=== PATIENT | female | born 1955 | race Caucasian/White ===

== ENCOUNTER 2023-12-08 22:43 | Inpatient (IN) | payer OTHER, SELFPAY ==
[2023-12-08 17:54] VITALS: BMI 38.2
[2023-12-08 18:29] VITALS: BP 118/71
--- NOTE | 2023-12-08 18:30 | ED.GENMED ---
ED Provider Triage
<Cheryl Hancock PA-C - Last Filed: 12/08/23 18:35>
-
Patient seen by provider in Triage?: Seen in Triage
Attestation: A medical screening examination has been initiated by a qualified medical provider. Based on the assessment performed at this time, it has been determined that an emergent medical condition may exist and the patient has been informed
that further medical evaluation and possible additional diagnostic testing may be needed.
HPI: 68yoF here with numbness in both hands, legs, and face for 1 week, worse since last night. Also feels off balance and feels like she is having speech difficulty. Feels like her previous CVA.
GENERAL: Alert , in no apparent distress
EYE: No visual abnormalities.
NECK: Trachea midline
ENT: No visible abnormalities.
LUNGS: No acute respiratory distress
NEUROLOGICAL: Alert and oriented
SKIN: Skin intact. No visible changes.
MUSCULOSKELETAL: Moving extremities normally
PSYCH: Normal and appropriate interaction.
This is a medical evaluation conducted in person to initiate diagnostic evaluation and provide initial therapeutics. Please see further documentation by the treating clinician.
Cardiac labs, EKG, and CT head ordered.
History of Present Illness
<Cheryl Hancock PA-C - Last Filed: 12/08/23 18:35>
General
Chief Complaint: Numbness
Time Seen by Provider: 12/08/23 19:35
<Tammy Bernabe MD - Last Filed: 12/09/23 02:24>
History of Present Illness
History of Present Illness:
Patient is a 68-year-old woman with history of A-fib not on anticoagulation, hypertension, hyperlipidemia, prior CVA in September treated at [facility] with no residual deficits presenting to the emergency department numbness tingling. Patient states
the past few weeks she has had bilateral lower extremity and upper extremity numbness. She states that it comes and goes and has not thought much of it. However yesterday evening she developed left-sided facial numbness. Occasionally has
difficulty with her speech. She states that while she was out in the waiting room the symptoms did resolve. She denies any weakness. No chest pain. She does state that she has shortness of breath with some dyspnea on exertion that has been
ongoing for many weeks. No history of coronary artery disease. No headache and vision changes nausea vomiting abdominal pain.
Phy Exam
<Tammy Bernabe MD - Last Filed: 12/09/23 02:24>
Physical Exam
Physical Exam:
GENERAL: in no acute distress
HEENT: normocephalic, extraocular movements intact, moist oral mucosa
NECK: normal inspection
RESPIRATORY: no respiratory distress, clear to auscultation bilaterally
CARDIOVASCULAR: regular rate and rhythm
ABDOMEN/: soft, non-distended, non-tender to palpation, no rebound or guarding
EXTREMITIES: non-tender, no edema/swelling
NEUROLOGIC: alert and oriented x 3, cranial nerves II-XII intact, right upper extremity strength 5/5, left upper extremity strength 5/5, right lower extremity strength 5/5, left lower extremity strength 5/5, normal sensation to light touch (except
left foot has decreased sensation), normal [id number] and [id number], gait not tested formally
SKIN: warm
NIH Stroke Score
Level of Consciousness: 0 - Alert
LOC questions: 0-Answers both correctly
LOC Commands: 0-Performs both correctly
Best Gaze: 0-Normal
Visual Salgado: 0=Normal, no visual loss
Facial palsy: 0=Normal, symmetrical
Motor - Right Arm: 0=No drift 10 seconds
Motor - Left Arm: 0=No drift 10 seconds
Motor - Right Le-No drift 5 seconds
Motor - Left Le-No drift 5 seconds
Limb Ataxia: 0-Absent
Sensation: 1-Mild loss
Best Language: 0-No aphasia
Dysarthria: 0-Normal
Extinction and Inattention: 0-No abnormality
Total Score:: 1
Course
<Cheryl Hancock PA-C - Last Filed: 12/08/23 18:35>
Orders/Labs/Results
Orders:
Orders
12/08/23 Dinner
1800 calorie (15 carb) Diabetic
At Your Request: Full Participation
Does patient need a safe tray?: No
Diabetic Diet: Cholesterol Lowering
12/08/23 18:34
Electrocardiogram (*1) Urgent
Reason for Study: Vertigo / Dizzy
CT Head W/o Iv Contrast Urgent
Comment:
Reason For Exam: Dizziness, bilateral hand/leg numbness, hx of CVA
EKG- Treatment ONCE
12/08/23 18:39
Complete Blood Count/With Diff Urgent
Comprehensive Metabolic Panel Urgent
Troponin I Urgent
12/08/23 19:52
0.9% Sodium Chloride 1000 ml [Nss] 1,000 ml IV BOLUS
12/08/23 21:09
Urinalysis Reflex To Culture Urgent
Date Specimen was Collected: 12/08/23
Time Specimen was Collected: 21:08
Urine Microscopic Reflex Cult Urgent
Urine Culture Urgent
NURY Source: U
Specimen Description:
Date Specimen was Collected: 12/08/23
Time Specimen was Collected: 21:08
12/08/23 21:36
Troponin I Routine
12/08/23 21:39
Aspirin 325 mg PO NOW STA
Clopidogrel Bisulfate [Plavix] 300 mg PO NOW STA
12/08/23 22:25
Dextrose 50%-Water [Dextrose 50% Syringe] 12.5 grams IV [id number] PRN
Glucagon [GlucaGen] 1 mg IM PRN PRN
12/08/23 22:26
NEUROLOGY CONSULT Routine
Consulting Provider: Donta Velazquez
Was physician already notified: Yes
Reason for consult: acute subacute cva small petechial hemorrhage
Bedside Glucose Monitoring As Directed
Frequency: AC&HS
Additional Instructions:: Change to q6h if pt on TPN, tube feeding or not eating
12/08/23 22:27
Acetaminophen [Tylenol] 1,000 mg PO NOW STA
12/08/23 22:29
Admit/Transfer Patient As Directed
Co-Sign Provider:
Level of Care: Inpatient admission
Assign to:: Telemetry
Physician / Group: david chavez
Diagnosis: acute /subacute cva,uncontrolled dm2
Reason for Telemetry: CVA/TIA
Date to Stop Telemetry: 12/11/23
Time to Stop Telemetry: 11:00
Reason for Hospitalization: acute /subacute cva,uncontrolled dm2
Expected length of stay greater than two midnights?: Yes
ELOS- Estimated Length of Stay in days: 3
I certify the patient meets the requirements for IP care: Yes
Code Status As Directed
Resuscitation Status: Full Code
12/08/23 22:34
PRN Pain Medication Management As Directed
May give lesser potent ordered pain med per pt: Yes
preference::
Protocol:: Medication orders for pain may be administered in a
manner that supports deferring to patient preference
when the pt is:
- Requesting an ordered lesser potent pain medication.
Least to most potent pain medications are defined
as: acetaminophen < NSAID < tramadol < opioids
(morphine, oxycodone, hydromorphone).
- Requesting a lesser dose of the same medication IF
ORDERED.
- Requesting a less intrusive route of administration
if both routes are prescribed by the provider (PO <
IV).
12/08/23 22:35
Diphenhydramine [Benadryl] 50 mg PO NOW STA
12/08/23 22:45
Insulin Glargine Lantus [Lantus] 10 units Subcutaneous Insulin Syringe [Syringe-Insulin] 0 unit SC HS
12/08/23 23:09
Acetaminophen [Tylenol] 650 mg PO Q4HPRN PRN
Bisacodyl [Dulcolax] 10 mg RECTAL [id number] PRN
Docusate W/Senna [Senokot-S] 1 tablet PO BIDPRN PRN
Polyethylene Glycol Powder [Miralax] 17 grams PO DAILYPRN PRN
Tetrahydrozoline 0.05% [Visine Eye Drops] 1 drop BOTH EYES QIDPRN PRN
12/08/23 23:09
Activity As Directed
Activity Level: As Tolerated
Intake/ Output As Directed
Frequency: Per unit guidelines
Neurological Checks As Directed
Frequency: q4h
Old Records Request [Obtain Records] As Directed
Dates of Information to be Released: 2022
Type of Information Requested: Consults
Discharge Summary
H&P
Radiology Results
Lab Results
Obtain Records from: [facility]
Pneumatic Compression Sleeves As Directed
Type: Knee high
Vital Signs As Directed
Frequency: Per unit guidelines
Weight As Directed
Frequency: Daily
OT Consult [Ot Eval And Treat] Routine
PT Consult [Pt Eval And Treat] Routine
Activity Level: As Tolerated
DX Deep Vein Thrombosis Video Routine
12/09/23 03:00
Troponin I Urgent
12/09/23 06:00
Complete Blood Count/With Diff IN AM
Comprehensive Metabolic Panel IN AM
Folate IN AM
Glycohemoglobin (HgbA1c) IN AM
Vitamin B12 IN AM
MRI Brain [MR Brain Without Contrast] IN AM
Comment:
Reason For Exam: Subacute/acute CVA possible tiki L hemorrhage
OK for patient to be off Cardiac Monitoring for MRI: Yes
Recent pill cam endoscopy?: No
Pacemaker/Defibrillator?: No
12/09/23 22:00
Losartan [Cozaar] 50 mg PO HS
Rosuvastatin Calcium [Crestor] 40 mg PO HS
12/10/23 06:00
Complete Blood Count/With Diff IN AM
Comprehensive Metabolic Panel IN AM
12/11/23 11:00
DC Protocol for Telemetry ONCE
Abnormal Lab Results
12/08/23 12/08/23 12/08/23
18:39 20:32 21:09
MCV 74.2 L fL
(81.0-99.0)
MCH 24.6 L pg
(27.0-31.0)
RDW 19.6 H %
(11.5-14.5)
Abs Immat Gran (auto) 0.1 H 10^3/uL
(0-0.05)
Absolute Monos (auto) 0.7 H 10^3/uL
(0.1-0.6)
Immature Gran % 0.8 H %
(0-0.5)
Monocytes % 11.2 H %
(1.7-9.3)
Sodium 134 L mmol/L
(135-145)
Chloride 92 L mmol/L
(98-107)
BUN 18 H mg/dl
(7-17)
Glucose 584 H* mg/dl
(70-99)
Troponin I 0.049 H* ng/ml
Ur Occult Blood Reflex Trace A
(Negative)
Leukocyte Esterase Rfl 1+ A
(Negative)
Urine Bacteria (Reflex) Few A
(Negative)
Urine Glucose 3+ A
(Negative)
POC Glucose 513 H* mg/dl
(70-99)
12/08/23 12/08/23
21:36 21:40
MCV
MCH
RDW
Abs Immat Gran (auto)
Absolute Monos (auto)
Immature Gran %
Monocytes %
Sodium
Chloride
BUN
Glucose
Troponin I 0.048 H* ng/ml
Ur Occult Blood Reflex
Leukocyte Esterase Rfl
Urine Bacteria (Reflex)
Urine Glucose
POC Glucose 426 H mg/dl
(70-99)
12/08/23 18:39
12/08/23 18:39
Vital Signs
Initial and Last Documented VS:
Initial Vital Signs
Temp Pulse Resp BP Pulse Ox
98.2 F 84 18 118/71 95
12/08/23 18:29 12/08/23 18:29 12/08/23 18:29 12/08/23 18:29 12/08/23 18:29
Last Documented Vital Signs
Temp Pulse Resp BP Pulse Ox
98.2 F 83 18 122/77 95
12/08/23 18:29 12/08/23 23:00 12/08/23 21:45 12/08/23 23:00 12/08/23 23:00
<Tammy Bernabe MD - Last Filed: 12/09/23 02:24>
Orders/Labs/Results
Orders:
Orders
12/08/23 Dinner
1800 calorie (15 carb) Diabetic
At Your Request: Full Participation
Does patient need a safe tray?: No
Diabetic Diet: Cholesterol Lowering
12/08/23 18:34
Electrocardiogram (*1) Urgent
Reason for Study: Vertigo / Dizzy
CT Head W/o Iv Contrast Urgent
Comment:
Reason For Exam: Dizziness, bilateral hand/leg numbness, hx of CVA
EKG- Treatment ONCE
12/08/23 18:39
Complete Blood Count/With Diff Urgent
Comprehensive Metabolic Panel Urgent
Troponin I Urgent
12/08/23 19:52
0.9% Sodium Chloride 1000 ml [Nss] 1,000 ml IV BOLUS
12/08/23 21:09
Urinalysis Reflex To Culture Urgent
Date Specimen was Collected: 12/08/23
Time Specimen was Collected: 21:08
Urine Microscopic Reflex Cult Urgent
Urine Culture Urgent
NURY Source: U
Specimen Description:
Date Specimen was Collected: 12/08/23
Time Specimen was Collected: 21:08
12/08/23 21:36
Troponin I Routine
12/08/23 21:39
Aspirin 325 mg PO NOW STA
Clopidogrel Bisulfate [Plavix] 300 mg PO NOW STA
12/08/23 22:25
Dextrose 50%-Water [Dextrose 50% Syringe] 12.5 grams IV [id number] PRN
Glucagon [GlucaGen] 1 mg IM PRN PRN
12/08/23 22:26
NEUROLOGY CONSULT Routine
Consulting Provider: Donta Velazquez
Was physician already notified: Yes
Reason for consult: acute subacute cva small petechial hemorrhage
Bedside Glucose Monitoring As Directed
Frequency: AC&HS
Additional Instructions:: Change to q6h if pt on TPN, tube feeding or not eating
12/08/23 22:27
Acetaminophen [Tylenol] 1,000 mg PO NOW STA
12/08/23 22:29
Admit/Transfer Patient As Directed
Co-Sign Provider:
Level of Care: Inpatient admission
Assign to:: Telemetry
Physician / Group: david chavez
Diagnosis: acute /subacute cva,uncontrolled dm2
Reason for Telemetry: CVA/TIA
Date to Stop Telemetry: 12/11/23
Time to Stop Telemetry: 11:00
Reason for Hospitalization: acute /subacute cva,uncontrolled dm2
Expected length of stay greater than two midnights?: Yes
ELOS- Estimated Length of Stay in days: 3
I certify the patient meets the requirements for IP care: Yes
Code Status As Directed
Resuscitation Status: Full Code
12/08/23 22:34
PRN Pain Medication Management As Directed
May give lesser potent ordered pain med per pt: Yes
preference::
Protocol:: Medication orders for pain may be administered in a
manner that supports deferring to patient preference
when the pt is:
- Requesting an ordered lesser potent pain medication.
Least to most potent pain medications are defined
as: acetaminophen < NSAID < tramadol < opioids
(morphine, oxycodone, hydromorphone).
- Requesting a lesser dose of the same medication IF
ORDERED.
- Requesting a less intrusive route of administration
if both routes are prescribed by the provider (PO <
IV).
12/08/23 22:35
Diphenhydramine [Benadryl] 50 mg PO NOW STA
12/08/23 22:45
Insulin Glargine Lantus [Lantus] 10 units Subcutaneous Insulin Syringe [Syringe-Insulin] 0 unit SC HS
12/08/23 23:09
Acetaminophen [Tylenol] 650 mg PO Q4HPRN PRN
Bisacodyl [Dulcolax] 10 mg RECTAL [id number] PRN
Docusate W/Senna [Senokot-S] 1 tablet PO BIDPRN PRN
Polyethylene Glycol Powder [Miralax] 17 grams PO DAILYPRN PRN
Tetrahydrozoline 0.05% [Visine Eye Drops] 1 drop BOTH EYES QIDPRN PRN
12/08/23 23:09
Activity As Directed
Activity Level: As Tolerated
Intake/ Output As Directed
Frequency: Per unit guidelines
Neurological Checks As Directed
Frequency: q4h
Old Records Request [Obtain Records] As Directed
Dates of Information to be Released: 2022
Type of Information Requested: Consults
Discharge Summary
H&P
Radiology Results
Lab Results
Obtain Records from: [facility]
Pneumatic Compression Sleeves As Directed
Type: Knee high
Vital Signs As Directed
Frequency: Per unit guidelines
Weight As Directed
Frequency: Daily
OT Consult [Ot Eval And Treat] Routine
PT Consult [Pt Eval And Treat] Routine
Activity Level: As Tolerated
DX Deep Vein Thrombosis Video Routine
12/09/23 03:00
Troponin I Urgent
12/09/23 06:00
Complete Blood Count/With Diff IN AM
Comprehensive Metabolic Panel IN AM
Folate IN AM
Glycohemoglobin (HgbA1c) IN AM
Vitamin B12 IN AM
MRI Brain [MR Brain Without Contrast] IN AM
Comment:
Reason For Exam: Subacute/acute CVA possible tiki L hemorrhage
OK for patient to be off Cardiac Monitoring for MRI: Yes
Recent pill cam endoscopy?: No
Pacemaker/Defibrillator?: No
12/09/23 22:00
Losartan [Cozaar] 50 mg PO HS
Rosuvastatin Calcium [Crestor] 40 mg PO HS
12/10/23 06:00
Complete Blood Count/With Diff IN AM
Comprehensive Metabolic Panel IN AM
12/11/23 11:00
DC Protocol for Telemetry ONCE
Abnormal Lab Results
12/08/23 12/08/23 12/08/23
18:39 20:32 21:09
MCV 74.2 L fL
(81.0-99.0)
MCH 24.6 L pg
(27.0-31.0)
RDW 19.6 H %
(11.5-14.5)
Abs Immat Gran (auto) 0.1 H 10^3/uL
(0-0.05)
Absolute Monos (auto) 0.7 H 10^3/uL
(0.1-0.6)
Immature Gran % 0.8 H %
(0-0.5)
Monocytes % 11.2 H %
(1.7-9.3)
Sodium 134 L mmol/L
(135-145)
Chloride 92 L mmol/L
(98-107)
BUN 18 H mg/dl
(7-17)
Glucose 584 H* mg/dl
(70-99)
Troponin I 0.049 H* ng/ml
Ur Occult Blood Reflex Trace A
(Negative)
Leukocyte Esterase Rfl 1+ A
(Negative)
Urine Bacteria (Reflex) Few A
(Negative)
Urine Glucose 3+ A
(Negative)
POC Glucose 513 H* mg/dl
(70-99)
12/08/23 12/08/23
21:36 21:40
MCV
MCH
RDW
Abs Immat Gran (auto)
Absolute Monos (auto)
Immature Gran %
Monocytes %
Sodium
Chloride
BUN
Glucose
Troponin I 0.048 H* ng/ml
Ur Occult Blood Reflex
Leukocyte Esterase Rfl
Urine Bacteria (Reflex)
Urine Glucose
POC Glucose 426 H mg/dl
(70-99)
12/08/23 18:39
12/08/23 18:39
Vital Signs
Initial and Last Documented VS:
Initial Vital Signs
Temp Pulse Resp BP Pulse Ox
98.2 F 84 18 118/71 95
12/08/23 18:29 12/08/23 18:29 12/08/23 18:29 12/08/23 18:29 12/08/23 18:29
Last Documented Vital Signs
Temp Pulse Resp BP Pulse Ox
98.2 F 83 18 122/77 95
12/08/23 18:29 12/08/23 23:00 12/08/23 21:45 12/08/23 23:00 12/08/23 23:00
<Tammy Bernabe MD - Last Filed: 12/09/23 02:24>
MDM/Problems Addressed
Differential Diagnosis Includes:
Patient is a 68-year-old woman with history of prior CVA, hypertension, hyperlipidemia, A-fib not on anticoagulation presenting to the emergency department with left-sided facial numbness that is now resolved as well as some shortness of breath that
has been ongoing on for many weeks. Vitals are unremarkable and exam only showed decrease sensation to the left foot. Differential consists of CVA/TIA versus electrolyte derangement versus atypical ACS. Blood work obtained prior to evaluation
does show hyperglycemia. It does not seem consistent with DKA given the elevated bicarb. Will obtain urine. Will give IV fluids and reassess blood sugar. Her troponin is also elevated. Per my interpretation she does have some inversions and
some mild depression laterally. Given that this time she is asymptomatic we will trend troponins to see if is needed. I did discuss with cardiology who is in agreement. CT scan is pending at this time.
<Tammy Bernabe MD - Last Filed: 12/09/23 02:24>
*Critical Care Note
Total Time (30-74mins, 75-104mins- exclusive of procedures): Not Applicable
<Tammy Bernabe MD - Last Filed: 12/09/23 02:24>
Update Note
Update Note:
On reevaluation patient remains symptom-free. CT scan does show subacute infarct with possible petechial hemorrhage. I did discuss with neurology who recommends asa/plavix. Delta troponin pending at 930. Will recheck blood sugar at that time.
Discussed with hospitalist who accepted patient to their service.
ED Attending Note
<Cheryl Hancock PA-C - Last Filed: 12/08/23 18:35>
-
Portions of this chart may have been created with voice recognition software.� Occasional wrong word or��sound alike� substitutions may have occurred due to the inherent limitations of voice recognition software.
Discharge Plan
Departure
Patient Disposition: Admit
Date of Disposition: 12/08/23
Time of Disposition: 21:17
Presentation/result/management discussed w/ accepting MD/DO: Hospitalist
Discharge Problem:
CVA (cerebral vascular accident)
Interventions
Interventions:
*Risk Screen - Suicide Last Done: 12/08/23 20:37
*General Assessment Last Done: 12/08/23 20:37
*Neglect/Abuse Screening Last Done: 12/08/23 20:37
ED- Neurological Assessment Last Done: 12/08/23 20:32
[2023-12-08 18:56] LABS: % Basophils 0.2 % (0-2); % Eosinophils 0.3 % (0-6); % Immature Granulocytes 0.8 % (0-0.5); % Lymphocytes 36.4 % (20.5-51.1); % Monocytes 11.2 % (1.7-9.3); % Neutrophils 51.1 % (42.2-75.2); Absolute Immature Granulocytes 0.1 10^3/uL (0-0.05); Absolute Lymphocytes 2.2 10^3/uL (1.2-3.4); Absolute Monocytes 0.7 10^3/uL (0.1-0.6); Absolute Neutrophils 3.1 10^3/uL (1.4-6.5); Hematocrit 38.6 % (37.0-47.0); Hemoglobin 12.8 g/dL (12.0-16.0); Mean Corp Hgb Conc. 33.2 g/dL (33.0-37.0); Mean Corpuscular Hgb 24.6 pg (27.0-31.0); Mean Corpuscular Volume 74.2 fL (81.0-99.0); Mean Platelet Volume 10.3 fL (7.4-10.4); Nucleated Red Blood Cells % 0 %; Platelet Count 252 10^3/uL (130-400); Red Cell Dist. Width 19.6 % (11.5-14.5); White Blood Cell Count 6.2 10^3/uL (4.8-10.8)
[2023-12-08 19:18] LABS: ALT (SGPT) 28 U/L (0-35); AST (SGOT) 31 U/L (14-36); Albumin 4.3 g/dl (3.5-5.0); Alkaline Phosphatase 95 U/L (38-126); Blood Urea Nitrogen 18 mg/dl (7-17); Calcium 9.4 mg/dl (8.4-10.2); Carbon Dioxide 27 mmol/L (22-30); Chloride 92 mmol/L (98-107); Glucose 584 mg/dl (70-99); Potassium 4.1 mmol/L (3.5-5.1); Sodium 134 mmol/L (135-145); Total Bilirubin 0.4 mg/dl (0.2-1.3); Total Protein 6.9 g/dl (6.3-8.2); eGFR > 60.00
[2023-12-08 19:28] LABS: Troponin I 0.049 ng/ml
[2023-12-08 19:53] VITALS: BP 99/74
[2023-12-08 20:10] VITALS: BP 109/73
[2023-12-08] MEDS: NSS 1000 IV (20:29)
[2023-12-08 20:34] LABS: Glucose - Point of Care 513 mg/dl (70-99)
[2023-12-08 21:07] VITALS: BP 114/73
[2023-12-08 21:17] LABS: Urine Albumin Trace (Neg - Trace); Urine Bilirubin Negative (Negative); Urine Character Clear (Clear); Urine Color Yellow; Urine Glucose 3+ (Negative); Urine Ketone Negative (Negative); Urine Leukocyte 1+ (Negative); Urine Nitrite Negative (Negative); Urine Occult Blood Trace (Negative); Urine Urobilinogen Negative (Neg - 1+)
[2023-12-08 21:29] LABS: Urine Bacteria Few (Negative); Urine Red Blood Cell 0-2 /HPF (0-2); Urine Squamous Cell 0-2 /LPF (Few)
[2023-12-08 21:42] LABS: Glucose - Point of Care 426 mg/dl (70-99)
[2023-12-08] MEDS: PLAVIX PO ×2 (21:45→21:49)
[2023-12-08] MEDS: ASPIRIN PO ×2 (21:46→21:49)
[2023-12-08 22:00] VITALS: BP 121/103
[2023-12-08] MEDS: PLAVIX 300 MG PO (22:03)
[2023-12-08] MEDS: ASPIRIN 325 MG PO (22:03)
--- NOTE | 2023-12-08 22:17 | HPS.HSE ---
Family Physician
-
Family Physician: Desirae Ty
Chief Complaint
-
Left-sided facial numbness, headache
History of Present Illness
68-year-old female who reports last night at 8 PM while sitting on the sofa she felt numbness from the left side of her forehead to her lower jaw and lips along with some lightheadedness. She normally has numbness from the left lower orbit to her
chin from a orbital floor fracture requiring repair with plate May 2023. Today she noticed she felt off balance with leaning to the left side and a frontal/left parietal headache developed around 5:30 PM. She also reports 4 weeks she has been
having pain in her bilateral feet with numbness. She has uncontrolled DM 2 has not been diagnosed with diabetic neuropathy yet. She reports she used to be on insulin but had weight loss and is now only on metformin 500 mg twice daily although her
blood sugar was 584 in the ER with anion gap of 15. She currently still has left-sided facial numbness with headache 8 out of 10 no blurred vision except her chronic left horizontal visual field loss 3-9 o'clock from orbital fracture. She denies
fever, chills, sore throat, chest pain, palpitations, shortness breath, cough, abdominal pain, nausea, vomiting, diarrhea, urinary symptoms. 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
blood loss of unclear etiology which was stopped a loop recorder was placed at [facility], history of left orbital floor fracture with plate repair May 2023 with chronic numbness from left orbit down to chin, DM2, HTN, daily alcohol use,
obesity.
Medical History
Past Medical History
Past Medical History: Reports Other
Additional Past Medical History:
CVA September 2022 embolic secondary to A-fib
A-fib on Eliquis resulting in blood loss of unclear etiology which was stopped a loop recorder was placed at [facility],
history of left orbital floor fracture with plate repair May 2023 with chronic numbness from left orbit down to chin
DM2
HTN
daily alcohol use
obesity.
Past Surgical History: Reports Other
Additional Past Surgical History:
history of left orbital floor fracture with plate repair May 2023
Tonsillectomy
Hysterectomy
Left eye cataract extraction with lens
Social History
Tobacco: Non-smoker
Alcohol: Daily (1 glass wine or vodka tonic)
Drug: None
Personal:
Living: With Family
Employment: Employed
Family History
Family History: Other (Mother age 64 multiple myeloma, father lung cancer, 1 sister 1 brother living hypertension)
Allergies / Home Medications
Allergies reflects when Allergies were last updated in [facility].
Home Medications with original date entered in [facility]
Allergy/Medication List:
Allergies
Allergy/AdvReac Type Severity Reaction Status Date / Time
lisinopril Allergy Itching Verified 12/08/23 18:32
Home Medications
aspirin 81 mg chewable tablet 81 mg PO DAILY 12/08/23
furosemide 20 mg tablet 20 mg PO DAILY 12/08/23
cngliqikhaq-dpu-plqusswdv-vitC capsule (Glucosamine Complex-MSM capsule) 1 cap PO BID 12/08/23
losartan 50 mg tablet 50 mg PO HS 12/08/23
metformin 500 mg tablet 500 mg PO BID 12/08/23
rosuvastatin 40 mg tablet 40 mg PO HS 12/08/23
tetrahydrozoline 0.05 % eye drops (Visine) 1 drp BOTH EYES QIDPRN PRN dry eyes 12/08/23
Review of Systems
-
History Source: Patient
A 12 point ROS was completed and negative except as noted: Yes
Constitutional: Denies Fever, Fatigue or Chills
EENT: Reports Other (Chronic numbness left side forehead down to left chin lips, chronic horizontal blindness left eye across 3-9 o'clock); Denies Sore Throat or Runny Nose
Respiratory: Denies Cough or Trouble Breathing
Cardiac: Denies Chest Pain, Diaphoresis or Palpitations
Abdomen/GI: Denies Abdominal Pain, Nausea, Vomiting, Diarrhea, Constipated, Bloody Stools or Black Stools
: Denies Dysuria, Frequency, Flank Pain, Incontinence, Difficulty Voiding or Urgency
Musculoskeletal: Denies Joint Pain or Edema
Skin: Denies Itching or Rash
Neurological: Reports Headache (Frontal and left parietal); Denies Dizzy or Weakness
Endocrine: Reports No Symptoms
Hematologic/Lymphatic: Reports No Symptoms
Psych: Reports Calm
Physical Exam
Vital Signs
Vital Signs
Temp Pulse Resp BP Pulse Ox
98.2 F 82 18 114/73 96
12/08/23 18:29 12/08/23 21:15 12/08/23 20:30 12/08/23 21:07 12/08/23 21:15
Physical Exam
General: Comfortable, Conversant and Pain; No Fever or Chills
HEENT: NormoCephalic, Anicteric, Moist mucous membranes, PERRLA, Logan Conjunctivae, No Ptosis and Neck Nontender
Respiratory: Clear; No Wheezes, Rales or Rhonchi
Cardiac: S1/S2 and Regular Rhythm; No Murmur, Rub, Gallop or Peripheral Edema
Breast: Deferred by me
GI: Soft, Non Tender, Non Distended, Normal Bowel Sounds and No Hepatosplenomegaly
Genito-urinary: Deferred by me
Musculoskeletal: No Clubbing, No Cyanosis and No Edema
Skin: Warm and Dry; No Rash or Jaundice
Neuro: AO x 3, No Motor Deficits, Nonfocal/grossly intact, Cranial Nerves Intact and No Sensory Deficits; No Slurred Speech, Facial Droop or Tremors
Psych: Calm
Laboratory Results
-
12/08/23 18:39
12/08/23 18:39
Laboratory Results
Total Bilirubin 0.4 mg/dl (0.2-1.3) 12/08/23 18:39
AST 31 U/L (14-36) 12/08/23 18:39
ALT 28 U/L (0-35) 12/08/23 18:39
Alkaline Phosphatase 95 U/L (38-126) 12/08/23 18:39
Troponin I 0.049 ng/ml H* 12/08/23 18:39
Impression/Plan
-
Impression/plan:
Admit to telemetry
#Acute/subacute CVA right frontal lobe with small focus posterior medial aspect may represent petechial hemorrhage
#Hx CVA September 2022 Embolic secondary to A-fib
#History treated with Eliquis in September 2022 stopped due to bleeding unknown area
Hold aspirin Plavix
-Check lipid profile, HbA1c
-MRI brain
-Consult neurology
-Obtain old records from [place] from September 2022
-PT/OT/case management eval
CT head without IV contrast
2.3 x 1.7 cm hypodensity along the inferolateral right frontal lobe/right frontal operculum suspicious for acute/subacute infarction.
There is a small focus of hyperdensity along the posterior medial aspect which may represent petechial hemorrhage. Consider MRI for further evaluation.
#History of left orbital floor fracture with plate repair May 2023
#Chronic horizontal left eye blindness 3-9 o'clock, above
#Chronic numbness from left orbit down to chhinlevel since above injury
#Paroxysmal A-fib September 2022
#History of loop recorder September 2022
#Hx bleeding on Eliquis September 2022 after CVA unknown source
-Not on Eliquis due to prior unknown source of bleeding September 2022 requiring 2 units PRBCs at [place]-had EGD and [place] that were negative per patient
-Hold current aspirin 81 mg due to petechial brain hemorrhage
-Continue losartan 50 mg at bedtime
#DM2�with acute hyperglycemia
BS 584-anion gap 15
-IV NSS 1 L bolus
-Lantus 10 units now and nightly
-SSI moderate check HgbA1c
#Bilateral pain/tingling to feet suspect diabetic neuropathy
-Advised to follow-up outpatient with PCP for neuropathy management to feet
#Nonischemic myocardial injury
Troponin 0.049> 0.048
EKG sinus rhythm 86 bpm, RBBB
#Daily alcohol use
Drinks 1 glass of wine 8 ounces or 1 drink vodka tonic nightly
#HTN�benign
BP 114/73
Continue losartan 50 mg at bedtime
Hold Lasix 20 mg daily
#Obesity due to excess calorie consumption�BMI 38.1 kg
-Weight loss recommended
-Affects all aspects of care
1800 ADA cholesterol-lowering diet recommended
DVT prophylaxis
SCDs
Full code
[2023-12-08 22:20] LABS: Troponin I 0.048 ng/ml
--- NOTE | 2023-12-08 22:40 | W.PN.UPDATE ---
Update Note
Progress Note Update
This is an addendum to the H&P written by Katt Ulloa on 12/08/2023. Patient seen examined independently with [employer]SE DEVELOPER.
68-year-old female past medical history of prior embolic CVA secondary to atrial fibrillation initially treated with Eliquis but stopped due to anemia/bleeding of unknown etiology with negative EGD/colonoscopy and blood transfusion, left orbital
floor fracture with plate repair May 2023, chronic left eye blindness, chronic numbness of left orbit down to chin, paroxysmal atrial fibrillation with loop recorder, hypertension, diabetes on insulin in the distant past, daily alcohol use,
obesity, presenting with new left face numbness involving forehead since last night and headache.
Labs show hyperglycemia blood sugar 584. CT head shows 2.3 x 1.7 cm hypertensive along inferior lateral right frontal lobe/right frontal operculum suspicious for acute/subacute infarction. There is small focus of hypertensive along the posterior
medial aspect represent petechial hemorrhage.
Neurology recommended aspirin and Plavix which was given. Check MRI brain. IV fluids. Hold Lasix. Obtain records from [facility].
Start Lantus 10 units plus moderate insulin sliding scale for hyperglycemia.
Tylenol, Benadryl for headache.
[2023-12-08] MEDS: BENADRYL 50 MG PO (22:54)
[2023-12-08] MEDS: TYLENOL 1000 MG PO (22:54)
[2023-12-08] MEDS: LANTUS 0.1 UNITS SC (22:55)
[2023-12-08 23:00] VITALS: BP 122/77
[2023-12-09 00:42] LABS: Glucose - Point of Care 442 mg/dl (70-99)
[2023-12-09] MEDS: NOVOLOG FLEXPEN 5 UNITS SC ×3 (02:22→19:03)
[2023-12-09 02:30] LABS: Glucose - Point of Care 403 mg/dl (70-99)
[2023-12-09 04:05] LABS: Troponin I 0.061 ng/ml
[2023-12-09 04:53] LABS: Glucose - Point of Care 439 mg/dl (70-99)
[2023-12-09 05:48] LABS: ALT (SGPT) 24 U/L (0-35); AST (SGOT) 25 U/L (14-36); Albumin 3.5 g/dl (3.5-5.0); Alkaline Phosphatase 76 U/L (38-126); Blood Urea Nitrogen 19 mg/dl (7-17); Calcium 9.4 mg/dl (8.4-10.2); Carbon Dioxide 25 mmol/L (22-30); Chloride 98 mmol/L (98-107); Estimated Creatinine Clearance 60 ml/min; Glucose 441 mg/dl (70-99); Potassium 3.6 mmol/L (3.5-5.1); Sodium 138 mmol/L (135-145); Total Bilirubin 0.3 mg/dl (0.2-1.3); Total Protein 6.1 g/dl (6.3-8.2); eGFR > 60.00
[2023-12-09 06:32] LABS: % Eosinophils 0.5 % (0-6); % Lymphocytes 38.9 % (20.5-51.1); % Monocytes 14.4 % (1.7-9.3); % Neutrophils 45.2 % (42.2-75.2); Absolute Lymphocytes 1.6 10^3/uL (1.2-3.4); Absolute Monocytes 0.6 10^3/uL (0.1-0.6); Absolute Neutrophils 1.9 10^3/uL (1.4-6.5); Hematocrit 35.8 % (37.0-47.0); Hemoglobin 11.8 g/dL (12.0-16.0); Mean Corpuscular Hgb 25.2 pg (27.0-31.0); Mean Corpuscular Volume 76.5 fL (81.0-99.0); Mean Platelet Volume 10.5 fL (7.4-10.4); Nucleated Red Blood Cells % 0 %; Platelet Count 192 10^3/uL (130-400); Red Blood Cell Count 4.68 10^6/uL (4.20-5.40); Red Cell Dist. Width 19.1 % (11.5-14.5); White Blood Cell Count 4.2 10^3/uL (4.8-10.8)
--- NOTE | 2023-12-09 06:40 | EDRN ---
provider ordered Novolog 10units now and this RN entered the pts room and spoke to the pt about insulin that the provider wanted her to have this AM, the pt refused and wanted to go back to sleep, this RN educated the pt on the importance of
medication compliance and notified her that her last blood sugar was 439 and that this RN should recheck it and administer insulin if the provider still wanted it, the pt still refused, will continue to monitor the pt closely
[2023-12-09 06:54] LABS: Folate 12.3 ng/ml (2.76-20); Vitamin B12 810 pg/ml (239-931)
--- NOTE | 2023-12-09 08:34 | EDRN ---
this RN entered the pts room to perform assessment, the pt was sleeping, the pt woke up when this RN entered the pt room, VS WNL, no s/s of distress, no c/o chest pain, no c/o SOB, no c/o numbness tingling, NIH negative, this RN asked the pt if she
wanted to order breakfast and the pt stated, 'No i don't want breakfast i just want to go to sleep please, i am very tired and worn out, i will eat a late breakfast', this RN spoke with the pt again about medication compliance, the pt verbally
stated that she understood, assessment performed and documented in work list, will continue to monitor the pt closely
[2023-12-09 08:38] VITALS: BP 131/86
--- NOTE | 2023-12-09 09:14 | CON.NEURO4 ---
Addendum entered and electronically signed by Arin Chew DO 12/09/23 15:51:
I have personally examined the patient. I agree with the ABOR[employer]INAL EDUCATION WORKER COORDINATOR's Note.
My addenda: 68 year-old female with a history of prior stroke (denies any residual deficits) and fall with L orbital fracture in May 2023 (with residual L facial numbness from orbit to chin and L side visual impairment) with PAF off Eliquis due to
concern for bleed without a source found (details unclear, follows with [place] [facility] as an OP) and several vascular risk factors including uncontrolled diabetes and daily ETOH use with worsening of baseline L facial numbness with
lightheadedness on the evening of 12/06, then abrupt onset of imbalance, leaning to the L and L frontoparietal headache of ~5:30PM on 12/07. She presented to the ER yesterday, 12/07. Her glucose level was 584. She reports currently feeling back
to her baseline.
On today's exam, she is an at times vague historian and has a R central CN 7 palsy; otherwise her exam is nonfocal. This may be her baseline; she was not sure. She also reports chronic vision loss in her L eye s/p fall/fracture.
HCT showed, 12/08/23: There is a 2.3 x 1.7 cm hypodensity along the inferolateral right frontal lobe/right frontal operculum suspicious for acute/subacute infarction. There is a small focus of hyperdensity along the posterior medial aspect which may
represent petechial hemorrhage.
MRI brain shows wedge shaped stroke in same distribution concerning for embolic etiology per my read, await official read from radiology. MRA head/neck reads also pending.
TTE ordered.
Continue ASA 81mg daily. Continue home dosing of Crestor 40mg daily.
Need details re: previous workup for GI bleed, OP cardiology evaluation.
Consider IP cardiology consult.
Agree with remainder of plan as below, will c/t follow.
Original Note:
Documented by User: Yecenia Trujillo NP 12/09/23 11:33
Consultation - Neurology 4
-
CONSULTING PHYSICIAN: Arin Chew DO
REFERRING PHYSICIAN: Hospitalists/CARLOS Horne
DICTATED BY: CARLOS Summers
DATE/TIME OF REQUEST: 12/08/23
DATE/TIME OF CONSULTATION: 12/09/23
Reason for Consultation: Left-sided paresthesias, dysarthria, ataxia, dysarthria
History of Present Illness:
This is a 68-year-old right-handed female who has presented to the hospital on 12/08/23 with report of left-sided paresthesias, gait ataxia, and slurred speech. Patient reports that in September 2022 she had expressive aphasia and right-sided
sensation loss. She was evaluated at [facility] at that time and told she had an ischemic stroke; stroke etiology was felt to be embolic. She was outside of the time window for thrombolytic/no LVO for IAT. She reports that her symptoms
resolved in a few days. She was started on Eliquis at that time due to concern for embolic stroke, and had a loop recorder placed per Cardiology. She is followed as an outpatient by Cardiology Dr. Mart at [place]. She was on Eliquis for about
two months when she reports that she became dizzy, was hypotensive, and her hemoglobin was low. She received 2u PRBCs and underwent EGD/workup to rule out bleeding source, and all testing was unremarkable. Eliquis was stopped at that time and she
has continued on aspirin 81mg daily with no signs of bleeding. She notes that her loop recorder has demonstrated paroxysmal Afib about 3 times since 09/2022.
In May 2023, she reports having a fall with left orbital trauma requiring surgical repair with a plate. Since then she has had numbness from her left lower orbit down to the left corner of her mouth. She also lost central vision in her left eye
and reports that it has been chronically blurry since the fall. She has had diabetes for years and was previously requiring insulin but lost weight over the past year and reports she was taken off of insulin. She does not consistently check her
blood sugars at home. For the past couple of months she notes that the chronic pins/needles neuropathy sensation she has in her feet has worsened and has spread up to bilateral ankles now.
Two days ago on 12/07/23 in the evening she notes that her chronic numbness on the left inner face spread to her entire left face including her forehead, and then started in her entire left arm too (no leg involvement above the ankle). She also
notes that her balance felt off and her friend thought her speech sounded slurred. She thought her symptoms would improve but when they didn't yesterday evening, she decided to come to the ER for evaluation. CT head was obtained on arrival and is
suggestive of a right frontal lobe acute/subacute ischemic infarct with possible posterior medial petechial hemorrhage. She was not a candidate for TNK/IAT due to being outside of the time window. She was loaded with aspirin/Plavix in the ER. Blood
sugar on arrival was 584 and last troponin level was 0.061.
Currently, patient notes that her left arm numbness has resolved and her speech feels improved. She still feels like her balance is off, she feels slightly dizzy, and her left face feels more numb than usual. She notes having a right frontal 8/10
throbbing headache last night, which has now resolved. She denies any vision changes, swallowing difficulty, focal weakness, nausea, photo/phonophobia, chest pain, palpitations, and shortness of breath. She has been taking her aspirin regularly. She
denies any history of migraine headaches.
Past Medical History: Afib (not on OAC), ischemic stroke 09/2022 (possibly embolic appearance, patient reports predominant in the left hemisphere), HTN, HLD, NIDDM, blood loss/unclear etiology while on Eliquis requiring transfusion x2, fall with
left orbital trauma resulting in chronic left eye central vision loss 05/2023, neuropathy, obesity
Surgical History: ILR 09/2022, left orbital fracture repair with plate May 2023, tonsillectomy, hysterectomy, left eye cataract extraction with lens
Family History: Mother- migraines, multiple myeloma.
Social History: Former smoker, quit 2017. 1 glass of wine or vodka tonic almost daily. Denies illicit drug use.
Allergies: Lisinopril.
Home Medications: See below.
Review of Symptoms:
Patient denies any fever, headache, chest pain, shortness of breath, GI or symptoms.
�Per the HPI.�All systems are reviewed negative except above.
Physical Exam:
The patient is afebrile, abdomen is nondistended, breathing is unlabored, skin is warm and dry, no edema.
NIH Stroke Scale:
I performed the NIH stroke scale on the patient on 12/09/23 at 0915. The patient scored 1 points on the NIH stroke scale assessment, which were assigned as follows: See below.
Neurologic Examination:
The patient is awake, alert and oriented x 3. She is able to follow commands and answer questions appropriately. There is no aphasia or dysarthria. On cranial nerve assessment, pupils are 3 mm bilateral, round and reactive to light and
accommodation. Visual salgado appear full. Extraocular movements are intact. Facial sensations are mildly reduced on the right, there is no facial asymmetry. Hearing is intact bilaterally to normal conversation volume. Tongue palate and uvula are
midline. Sternocleidomastoid strengths are full bilaterally. Motor strengths are 5/5 bilateral upper and lower extremities on medical research [place] scale. There is no drift or involuntary movement noted. Deep tendon reflexes are 1+ bilateral
upper and lower extremities and Babinski is absent bilaterally. Sensation of temperature is mildly reduced in bilateral distal lower extremities. Sensation of vibration is absent in bilateral toes. There was no extinction noted on double
simultaneous stimulation. Coordination is intact by finger to nose bilaterally.
Lab Results: See below.
Neuro Imaging:
1. CT Head 12/08/23: There is a 2.3 x 1.7 cm hypodensity along the inferolateral right frontal lobe/right frontal operculum suspicious for acute/subacute infarction. There is a small focus of hyperdensity along the posterior medial aspect which may
represent petechial hemorrhage.
Differentials for the patient's presentation include:
1. CT head suggestive of acute/subacute right frontal ischemic stroke with possible small petechial hemorrhage component.
2. Some concern for other small areas of subacute stroke given ataxia and paresthesias; although challenging to differentiate these symptoms from TME in the setting of poorly controlled diabetes. HbA1c is 13.5.
3. History of embolic appearing stroke.
4. Paroxysmal Afib, not on OAC due to bleeding of unknown origin while on Eliquis.
5. 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
6. Low ferritin level.
Patient has the following risk factors for their symptoms: Afib not on OAC, hbA1c 13.5, HTN, HLD
IV Tenecteplase/IAT candidacy: Not a candidate due to outside of the time window.
Recommendations:
-Continue on aspirin 81mg daily only for now. Will consider adding Plavix after MRI brain imaging and medical records are obtained/reviewed due to hx bleeding and possible petechial hemorrhage component to new infarct.
-MRI brain, MRA head/neck pending.
-TTE pending.
-Goal normotension as symptom onset was >24 hours ago.
-NIHSS and neurological checks per unit guidelines.
-Provide patient with a stroke education packet.
-LDL goal <70. LDL is pending. Continue home rosuvastatin 40mg daily.
-Goal normoglycemia, hbA1c is 13.5.
-PT/OT/ST evaluations.
-DVT prophylaxis.
-Records requested from [facility].
-Will follow pending results.
Discussed patient care with: Dr. Chew, the patient
Vital Signs and Labs
-
Vital Signs and Labs:
Vital Signs
Temp Pulse Resp BP Pulse Ox
97.6 F 86 18 131/86 96
12/09/23 08:38 12/09/23 08:38 12/09/23 08:38 12/09/23 08:38 12/09/23 08:38
Lab Results
12/09/23 05:01
12/09/23 05:01
Sodium 138 mmol/L (135-145) 12/09/23 05:01
Potassium 3.6 mmol/L (3.5-5.1) 12/09/23 05:01
BUN 19 mg/dl (7-17) H 12/09/23 05:01
Glucose 441 mg/dl (70-99) H 12/09/23 05:01
Calcium 9.4 mg/dl (8.4-10.2) 12/09/23 05:01
Vitamin B12 810 pg/ml (029-931) 12/09/23 05:01
Medications
-
Active Medications
Generic Name Dose Route Start Last Admin
Trade Name Freq PRN Reason Stop Dose Admin
Acetaminophen 650 mg 12/08/23 23:09
Acetaminophen 325 Mg Tablet PO 01/05/24 23:08
[id number] PRN
h/a, fever>100.4F
Aspirin 81 mg 12/09/23 10:00
Aspirin 81 Mg Chewable Tablet PO 01/06/24 09:59
DAILY KARTIK
Bisacodyl 10 mg 12/08/23 23:09
Bisacodyl 10 Mg Rectal Suppository RECTAL 01/05/24 23:08
[id number] PRN
constipation
Dextrose 12.5 grams 12/08/23 22:25
Dextrose 50% (0.5 Grams/Ml) 50 Ml Syringe IV 01/05/24 22:24
[id number] PRN
hypoglycemia
Protocol
Glucagon 1 mg 12/08/23 22:25
Glucagon 1 Mg Vial IM 01/05/24 22:24
PRN PRN
hypoglycemia
Protocol
Insulin Glargine 10 units/ 0.1 mls @ 0 mls/hr 12/08/23 22:45 12/08/23 22:55
Device SC 01/05/24 22:44 0.1 mls
HS KARTIK Administration
As Directed
Insulin Aspart 0 units 12/09/23 07:30 12/09/23 09:30
Insulin Aspart Moderate Resistance 300 Units/3 Ml Pen.Injctr SC 01/06/24 07:29 9 units
AC KARTIK Administration
Protocol
Losartan Potassium 50 mg 12/09/23 22:00
Losartan 50 Mg Tablet PO 01/06/24 21:59
HS KARTIK
Polyethylene Glycol 17 grams 12/08/23 23:09
Polyethylene Glycol Powder 17 Grams Packet PO 01/05/24 23:08
DAILYPRN PRN
constipation
Rosuvastatin Calcium 40 mg 12/09/23 22:00
Rosuvastatin (Crestor) 40 Mg Tablet PO 01/06/24 21:59
HS KARTIK
Senna/Docusate Sodium 1 tablet 12/08/23 23:09
Docusate W/Senna (Loyda-Colace) Tablet PO 01/05/24 23:08
BIDPRN PRN
constipation
Sodium Chloride 0 flush 12/08/23 23:00
Sodium Chloride 0.9% (Flush) Syringe IV 01/05/24 22:59
PER PROTOCOL KARTIK
Tetrahydrozoline HCl 1 drop 12/08/23 23:09
Tetrahydrozoline 0.05% (Ophthalmic Drops) 15 Ml Bottle BOTH EYES 01/05/24 23:08
QIDPRN PRN
dry eyes
Home Medications
�Medication �Instructions �Recorded
aspirin 81 mg chewable tablet 81 mg PO DAILY Blood Clot 12/08/23
Prevention/Tx
furosemide 20 mg tablet 20 mg PO DAILY Fluid 12/08/23
Retention/Swelling
mepvyioiiqr-qbo-dfgucliwn-vitC 1 cap PO BID Supplement 12/08/23
capsule (Glucosamine Complex-MSM
capsule)
losartan 50 mg tablet 50 mg PO HS Blood Pressure 12/08/23
metformin 500 mg tablet 500 mg PO BID Diabetes 12/08/23
rosuvastatin 40 mg tablet 40 mg PO HS High Cholesterol 12/08/23
tetrahydrozoline 0.05 % eye drops 1 drp BOTH EYES QIDPRN PRN dry eyes 12/08/23
(Visine)
NIH Stroke Score
Subsequent NIH Scale
Date of Subsequent NIH Scale: 12/09/23
Time of Subsequent NIH Scale: 09:15
NIH Stroke Score
Level of Consciousness: 0 - Alert
LOC Questions: 0-Answers both correctly
LOC Commands: 0-Performs both correctly
Best Horizontal Gaze: 0-Normal
Visual Salgado: 0=Normal, no visual loss
Facial Palsy: 0=Normal, symmetrical
Motor - Right Arm: 0=No drift 10 seconds
Motor - Left Arm: 0=No drift 10 seconds
Motor - Right Le-No drift 5 seconds
Motor - Left Le-No drift 5 seconds
Limb Ataxia: 0-Absent
Sensation: 1-Mild loss
Best Language: 0-No aphasia
Dysarthria: 0-Normal
Extinction and Inattention: 0-No abnormality
Total Score:: 1
Modified Celeste (mRS) Score
Modified Celeste Scale (mRS): No significant disability. Able to carry out usual activities.
Score: 1
Alteplase Contraindication
Inclusion and Exclusion criteria reviewed: Yes
Reasons for NON-Tx with Thrombolytics ABSOLUTE Exclusions: Greater than 4.5 hrs from onset of sxs

Documented by User: Arin Chew DO 12/09/23 14:36
NIH Stroke Score
NIH Stroke Score
Total Score:: 1
Modified Celeste (mRS) Score
Score: 1
[2023-12-09 09:28] LABS: Glucose - Point of Care 367 mg/dl (70-99)
--- NOTE | 2023-12-09 09:29 | EDRN ---
Neurology currently at the pts bedside, the pt took herself off of the manager monitoring, BP cuff, and Sp02 monitor and is sitting in chair speaking with neurology, the pt allowed this RN to check blood sugar, the pts breakfast has arrived and this RN
will administer insulin per providers orders before the pt starts to eat
[2023-12-09] MEDS: NOVOLOG FLEXPEN-MODERATE RESISTANCE 9 UNITS SC (09:30)
--- NOTE | 2023-12-09 09:43 | EDRN ---
Dr. Platt at the pts bedside speaking with the pt, this RN entered the pts room and asked Dr. Platt if he wants a cardiology consult placed or another troponin drawn and Dr. Platt stated, 'Not yet', the pt is sitting in chair eating her
breakfast, no s/s of distress, will continue to monitor the pt closely
--- NOTE | 2023-12-09 09:49 | W.PN.HOSP.TC ---
Today's Communication/Plan
-
See plan
Assessment / Plan
Assessment / Plan
Impression:
Presentation with left facial and left upper extremity paresthesia
Acute CVA, right hemisphere.
Non-MT troponin elevation.
Poorly controlled diabetes with severe hyperglycemia on presentation
Other conditions:
Paroxysmal atrial fibrillation confirmed with a loop recorder.
Previously on anticoagulation with Eliquis discontinued due to hemorrhagic complications
Essential hypertension.
Diabetes type 2.
Obesity with BMI of 38.
History of traumatic left orbital fracture with chronic left facial paresthesia
Daily alcohol use.
Former smoker.
Plan:
Presentation with left facial numbness
CT head on admission: There is a 2.3 x 1.7 cm hypodensity along the inferolateral right frontal lobe/right frontal operculum suspicious for acute/subacute infarction. There is a small focus of hyperdensity along the posterior medial aspect which may
represent petechial hemorrhage.
Persistent left facial numbness (patient refers to worsening of chronic left facial numbness since her orbital fracture)
No other focal findings on exam.
Loaded with Plavix and received aspirin on admission
Neurology consultation
MRI of the brain.
Echocardiogram.
Lipid profile. Continue statin
Obtain outpatient medical records.
Further decision in terms of DAPT versus anticoagulation depends on workup and medical record review.
Serial neurochecks.
Strict blood pressure and blood glucose control
Physical therapy evaluation
Non-MT troponin elevation baseline chest pain-free upon admission.
Troponin remains flat.
ECG sinus rhythm with no ischemic changes.
Echocardiogram.
Continue aspirin.
Paroxysmal atrial fibrillation.
Patient is not on any AV tanner blocking agents or arrhythmics at time of presentation
Not on anticoagulation at time of presentation. Reports hemorrhagic complications in the past led to discontinuation of anticoagulation
Will obtain medical records.
Essential hypertension.
Goal normotension in the settings of acute CVA
Continue losartan
Monitor blood pressure trend.
Poorly controlled diabetes with hyperglycemia upon presentation
Check hemoglobin A1c
Initiated on basal bolus protocol.
Insulin regimen adjustment with initiation of Lantus/AC NovoLog
Diabetic nurse petitioner consultation
Patient reports pain/tingling to feet. Most likely develops diabetic neuropathy.
Obesity due to excessive calories.
BMI 38
Weight loss recommended.
This affects all aspects of care
Diabetic diet
Daily alcohol use.
Low risk for withdrawal per
Monitor closely
Anticipated Discharge: 24 - 48 hours
Subjective/Interval History
-
Date of Service: December 09, 2023
Objective Data
-
Labs:
Laboratory Results
12/09/23
05:01
WBC 4.2 L
Hgb 11.8 L
Hct 35.8 L
Plt Count 192 D
Sodium 138
Potassium 3.6
Chloride 98
Carbon Dioxide 25
BUN 19 H
Creatinine 1.0
Glucose 441 H
Calcium 9.4
Total Bilirubin 0.3
AST 25
ALT 24
Alkaline Phosphatase 76
Vital Signs:
Vital Signs
Temp Pulse Resp BP Pulse Ox
97.6 F 86 18 131/86 96
12/09/23 08:38 12/09/23 08:38 12/09/23 08:38 12/09/23 08:38 12/09/23 08:38
Physical Exam
-
General: Well Developed and No Apparent Distress
HEENT: Normocephalic, Atraumatic and Moist Mucous Membranes
Respiratory: Clear to Auscultation
Cardiac: Regular Rhythm and S1/S2; Negative Murmur, Rub or Gallop
GI: Soft, Nontender, Nondistended and Normal Bowel Sounds; Negative Organomegaly
Rectal: Deferred by Provider
Musculoskeletal: No Clubbing, No Cyanosis and No Edema
Skin: Negative Rash
Neuro: Nonfocal/Grossly Intact
--- NOTE | 2023-12-09 10:00 | EDRN ---
this RN noticed that the pt took herself off of the building code inspector, BP cuff, and Sp02 monitor again, this RN entered the pts room and the pt was in the bathroom, the pt was able to ambulate to the bathroom and back to the chair where the pt wanted
to sit, the pt was placed back on the monitor, VS WNL, no s/s of distress, no c/o dizziness, no c/o lightheadedness, will continue to monitor the pt closely
[2023-12-09 10:29] LABS: Iron 48 ug/dl (37-170)
[2023-12-09 10:38] LABS: Percent Saturation 13 % (20-50); Total Iron Binding Capacity 366 ug/dl (265-497)
[2023-12-09 10:56] LABS: Glycohemoglobin (HgbA1c) 13.5 % (4.0-5.6)
[2023-12-09] MEDS: LOW STRENGTH ASPIRIN 81 MG PO (11:00)
[2023-12-09 11:07] LABS: Ferritin 11.1 ng/ml (11.1-264.0)
--- NOTE | 2023-12-09 11:51 | PN.DE.MGMTRT ---
Insulin Management
- -
12/09/2023 Diabetes Management Consult
Patient admitted 12/07 with c/o numbness both hands, legs, face for 1 to 2 weeks worse on 12/07, found to have acute R hemisphere CVA. PMH a fib, HTN, HLD, prior CVA 10/09 @ [place]. Prior to admission was ordered metformin 500 mg BId patient
admits she sometimes forgot it. A1C on admission 13.5%, cr 1, eGFR > 60.
Patient is awake alert and oriented by uncertain about many things related to her health and appointments with primary doctor. She states her primary doctor, Melony, does manage her diabetes and she has an appointment 12/13. She is not sure what
her A1C was.
Glucose on admission 584, received lantus 10 units @ hs, fasting glucose today 367. Corrective insulin ordered and 9 units given this AM.
12/08 Will increase HS lantus to 16 units, start AC novolog 5 units with moderate corrective and metformin 1000 BID (first dose with dinner). Diet reduced from 1800 to 1600.
Discussed with nurse.
Diabetes History
- -
Type of Diabetes: 2
Pre-Admission Diabetes Regimen
12/08/23 12/09/23
18:39 05:01
Creatinine 0.9 1.0
Lab Results
Hemoglobin A1c 13.5 % (4.0-5.6) H 12/09/23 05:01
Insulin Pump Settings
IP Diabetes Regimen
12/08/23 12/08/23 12/08/23
18:39 20:32 21:40
Glucose 584 H*
POC Glucose 513 H* 426 H
12/09/23 12/09/23 12/09/23
00:38 02:28 04:49
Glucose
POC Glucose 442 H 403 H 439 H
12/09/23 12/09/23
05:01 09:27
Glucose 441 H
POC Glucose 367 H
Patient Education
--- NOTE | 2023-12-09 11:55 | EDRN ---
echo at the pts bedside
--- NOTE | 2023-12-09 12:07 | EDRN ---
OT and PT currently at the pts bedside, this RN entered the pts room and turned the pt lights on so that OT and PT could see and the pt stated, 'So this is how you treat the patients that are nice here?', this RN apologized and exited the room to
allow for OT and PT to work with the pt
[2023-12-09 12:21] VITALS: BP 115/71
[2023-12-09 12:31] VITALS: BP 115/89
[2023-12-09 12:54] LABS: HDL Cholesterol 48 mg/dl; LDL Cholesterol, Calculated 26 mg/dl; Total Cholesterol 109 mg/dl (50-199); Triglyceride 177 mg/dl (10-149); Very Low Density Lipoprotein 35 mg/dl (0-30)
--- NOTE | 2023-12-09 13:52 | EDRN ---
this RN called the receiving unit and notified them that paper report was tubed up, Christel RN called this RN and got verbal report regarding the pts NIH of 0
--- NOTE | 2023-12-09 14:38 | EDRN ---
the pt was brought back from MRI and is now going to the floor
[2023-12-09 15:21] VITALS: BP 146/85; BMI 37.3
[2023-12-09 15:21] LABS: Glucose - Point of Care 242 mg/dl (70-99)
[2023-12-09] MEDS: NOVOLOG FLEXPEN-MODERATE RESISTANCE 3 UNITS SC ×2 (16:03→19:03)
[2023-12-09] MEDS: GLUCOPHAGE 1000 MG PO (16:04)
--- NOTE | 2023-12-09 16:42 | PTCARENOTE ---
pt arrived from ED awake and alert. NIH 0 denies pain/ THORPE. LCTA B/L on RA. abd round obese +bsx4. Cont B&B. skin CDI no edema +pp b/l. CB in reach
[2023-12-09 19:05] LABS: Glucose - Point of Care 222 mg/dl (70-99)
[2023-12-09 19:20] VITALS: BP 107/73
[2023-12-09 22:25] LABS: Glucose - Point of Care 264 mg/dl (70-99)
[2023-12-09] MEDS: CRESTOR 40 MG PO (22:29)
[2023-12-09] MEDS: LANTUS 0.16 UNITS SC (22:29)
[2023-12-09] MEDS: COZAAR 50 MG PO (22:30)
[2023-12-09 23:40] VITALS: BP 133/68
[2023-12-10 03:25] VITALS: BP 111/75
[2023-12-10 06:00] VITALS: BMI 37.4
[2023-12-10 06:54] LABS: % Eosinophils 0.4 % (0-6); % Immature Granulocytes 1.3 % (0-0.5); % Lymphocytes 29.7 % (20.5-51.1); % Monocytes 10.8 % (1.7-9.3); % Neutrophils 57.8 % (42.2-75.2); Absolute Immature Granulocytes 0.1 10^3/uL (0-0.05); Absolute Lymphocytes 1.7 10^3/uL (1.2-3.4); Absolute Monocytes 0.6 10^3/uL (0.1-0.6); Absolute Neutrophils 3.2 10^3/uL (1.4-6.5); Hematocrit 41.7 % (37.0-47.0); Hemoglobin 13.5 g/dL (12.0-16.0); Mean Corp Hgb Conc. 32.4 g/dL (33.0-37.0); Mean Corpuscular Hgb 25.3 pg (27.0-31.0); Mean Corpuscular Volume 78.1 fL (81.0-99.0); Nucleated Red Blood Cells % 0 %; Platelet Count 227 10^3/uL (130-400); Red Blood Cell Count 5.34 10^6/uL (4.20-5.40); Red Cell Dist. Width 19.9 % (11.5-14.5); White Blood Cell Count 5.6 10^3/uL (4.8-10.8)
--- NOTE | 2023-12-10 07:30 | PN.DE.MGMTRT ---
Insulin Management
- -
12/10/2023 Diabetes Management Consult Follow up
Patient admitted 12/07 with c/o numbness both hands, legs, face for 1 to 2 weeks worse on 12/07, found to have acute R hemisphere CVA. PMH a fib, HTN, HLD, prior CVA 10/09 @ [place]. Prior to admission was ordered metformin 500 mg BId patient
admits she sometimes forgot it. A1C on admission 13.5%, cr 1, eGFR > 60.
Patient is awake alert and oriented. She states her primary doctor, Melony, does manage her diabetes and she has an appointment 12/13. She is not sure what her A1C was.
Glucose on admission 584.
12/08 HS lantus increased to 16 units, started AC novolog 5 units with moderate corrective and metformin 1000 BID. Diet reduced from 1800 to 1600.
12/09 CR .8, eGFR > 60. Pre meal glucose range yesterday 242 to 264 after AC novolog started. Will increase AC novolog to 8 units with moderate corrective. Fasting glucose 247 this AM, will increase HS lantus to 20 units.
Patient states she has taken insulin in the past, but was diligent with exercise, diet and medication and her doctor stopped insulin. She has tested her glucose in the past but not sure where her meter is.
Provided Contour Next glucose monitor and instructed on steps for testing with good return demonstration. Highlighted in diabetes education booklet times to test and target ranges. Also highlighted both insulins and reviewed action of both.
Provided demonstration of insulin pen use and printed step by step instructions for prep and injection technique. Patient able to return demonstrate required verbal cues. Nursing to reinforce and have patient self inject with nursing supervision.
Discussed with nurse.
Diabetes History
- -
Type of Diabetes: 2 requiring insulin
Pre-Admission Diabetes Regimen
Lab Results
Hemoglobin A1c 13.5 % (4.0-5.6) H 12/09/23 05:01
Insulin Pump Settings
IP Diabetes Regimen
12/09/23 12/09/23 12/09/23
09:27 15:19 19:04
POC Glucose 367 H 242 H 222 H
12/09/23
22:23
POC Glucose 264 H
Patient Education
[2023-12-10 07:39] LABS: ALT (SGPT) 28 U/L (0-35); AST (SGOT) 34 U/L (14-36); Alkaline Phosphatase 88 U/L (38-126); Blood Urea Nitrogen 19 mg/dl (7-17); Calcium 9.5 mg/dl (8.4-10.2); Carbon Dioxide 27 mmol/L (22-30); Chloride 100 mmol/L (98-107); Estimated Creatinine Clearance 75 ml/min; Glucose 234 mg/dl (70-99); Potassium 4.1 mmol/L (3.5-5.1); Sodium 138 mmol/L (135-145); Total Bilirubin 0.5 mg/dl (0.2-1.3); Total Protein 6.7 g/dl (6.3-8.2); eGFR > 60.00
[2023-12-10 07:55] LABS: Glucose - Point of Care 247 mg/dl (70-99)
[2023-12-10 07:58] VITALS: BP 112/76
[2023-12-10] MEDS: NOVOLOG FLEXPEN-MODERATE RESISTANCE 3 UNITS SC ×2 (08:14→12:45)
[2023-12-10] MEDS: NOVOLOG FLEXPEN 8 UNITS SC ×3 (08:14→17:03)
[2023-12-10] MEDS: GLUCOPHAGE 1000 MG PO ×2 (08:15→17:07)
[2023-12-10] MEDS: LOW STRENGTH ASPIRIN 81 MG PO (08:15)
[2023-12-10] MEDS: PLAVIX 75 MG PO (08:32)
[2023-12-10] MEDS: NOVOLOG FLEXPEN SC (08:36)
--- NOTE | 2023-12-10 10:01 | CM ---
Patient seen at bedside. IA completed.
Dx: acute/subacute CVA, Uncontrolled DM
Hx: afib, HTN, HDL
Patient tearful, would like to go home.
Lives in a split level home with a friend, bath on 1st floor, steps to bedroom
PLOF: Ambulating without using device
DME: glucometer
CM offered emotional support.
PT recommend ?outpatient
Discussed options of home health. states she will think about it & then declined.
PCP: Desirae Ty
Pharmacy: [address] [place]
PLAN: Home, declined home health currently.
[2023-12-10 11:48] VITALS: BP 129/83
[2023-12-10 12:05] LABS: Glucose - Point of Care 228 mg/dl (70-99)
--- NOTE | 2023-12-10 13:43 | CON.CAR ---
Addendum entered and electronically signed by Shabana Brooks DO 12/10/23 19:22:
EKGs with prolonged QTc�will obtain prior EKGs from [facility]. Check magnesium. Avoid QT prolonging agents. Continue ehs teacher
Addendum entered and electronically signed by Shabana Brooks DO 12/10/23 18:20:
I saw and examined the patient.
The Elevated Motorman's note was reviewed and I agree with the note.
Comment: Patient admitted 12/08/2023 complaining of bilateral hand and leg numbness as well as paresthesias of the face for 1 to 2 weeks found to have acute/subacute right hemisphere CVA. Patient has previously followed with Dr. Brooke at [facility]
cardiology with a history of left hemispheric CVA in September 2022 at [facility] status post Biotronik ILR and diagnosed with PAF. She fortunately had no residual deficits with her prior stroke. She states she was on Eliquis following this event however
within the month had symptomatic heme positive anemia with hemoglobin down to 5.7 g/dL. Eliquis was stopped and patient had an upper endoscopy that was unremarkable, but she never completed colonoscopy. Patient last saw her forest pathologist in the
office 01/14/23 and at that time her loop recorder was interrogated and she was noted to have episodes of Afib up to about 3 hours with an overall burden of 1%. There is no mention of a Watchman device and it appears that the plan was to watch for
recurrence of significant atrial fibrillation and then anticoagulate at that time. Patient says she has not followed up with their office in quite some time, but continues to have a bedside reader for her ILR at home. Neurologic evaluation and
imaging demonstrated a moderate to large acute/subacute right frontoparietal ischemic infarct with scattered tiny infarcts supportive of an embolic etiology in the setting of uncontrolled type 2 diabetes mellitus with a presenting hemoglobin of
13.5%. She denies known hypercoagulable states, and recent infections including COVID. She is a non-smoker and denies alcohol use. She does have a history of sleep apnea managed by pulmonary at [facility], not currently using her CPAP because of a
broken strap. She has no known coronary artery disease and no symptoms of chest pain or pressure. Biotronik device rep reports her last remote was 12/08/2023. She has false positive A-fib with PACs and PVCs and 1 7 seconds of NSVT on 05/07/2023.
Last bradycardia event was 05/20/2023 for 20 seconds with heart rates in the mid 30s at 7:30 in the morning. Her mean heart rates are in the 80s. On telemetry so far she has been sinus rhythm without significant tacky or bradycardia arrhythmias and
no atrial fibrillation
General: No acute distress, AAOX3
Neck: Negative JVD
Heart: Regular, positive S1/S2, No murmur
Lungs: CTA b/l, negative wheezes/rales/rhonchi
Abd: Positive BS, NT/ND, neg rebound/rigidity/guarding
Ext: Negative cyanosis/clubbing/edema
Plan:
Moderate/large acute/subacute right frontoparietal ischemic infarct with scattered tiny infarcts with appearance supportive of embolic etiology
-Patient has a history of prior stroke in September 2022 without residual deficits; history of PAF not currently on anticoagulation with history of GI bleed treated at [facility]
-LoopNetronik ILR interrogation reviewed with neurology. No definite atrial fibrillation from December 2022 until December 08, 2023
-CHADS-VASC score is high at 6. Given prior history of atrial fibrillation and recurrent stroke would favor resuming anticoagulation
-Shared decision making with neurology and patient plan resume Eliquis 5 mg twice daily 5 days after stroke and stopping aspirin/Plavix
-If bleeding events recur could consider future watchman
-Discussed the importance of getting her home CPAP strap fixed and resuming daily nocturnal CPAP
-Discussed the importance of blood pressure control with goal normotension
-Discussed the importance of diabetic control with goal normoglycemia. Presenting hemoglobin markedly abnormal, A1c 13.5%!!
-LDL goal less than 70 mg/dL if not ideally closer to 55 mg/dL. LDL is currently 26. Continue home rosuvastatin 40 mg daily
-PT/OT/ST evaluations
-Recommend outpatient neurology follow-up
History of PAF in sinus rhythm with Biotronik ILR
-Plan to resume Eliquis 5 mg twice daily as above
-Patient has indicated they would like to transition care from [facility] to [facility]
-TSH is within normal limits
Moderate to severe concentric left ventricular hypertrophy with hyperdynamic LV systolic function estimated greater than 75% on Casillas's method on recent echocardiogram without obstruction
-Per prior reports an echocardiogram last year demonstrated LVH with dynamic LVOT gradients with Valsalva
-? uncontrolled HTN vs HCM-could consider outpatient cardiac MRI
-Blood pressure is reasonably controlled, continue Metoprolol therapy. Would avoid the use of diuretic
Abnormal cardiac troponin/abnormal EKG with multiple cardiac risk factors
-No chest pain suggestive of angina
-Recommend outpatient ischemic evaluation
Will follow with you
Original Note:
Consultation
Consultation Request
Date/Time Consultation Requested: 12/10/23
Date/Time Consultation Performed: 12/10/23
Requesting Provider: Dr. Platt
Performing Provider: Dr. Brooks
Reason for Consultation: CVA, pAfib, not on OAC
Medical History
-
History of Present Illness:
Patient came to [facility] Thursday with left sided weakness and paresthesias and was admitted for stroke and cardiology is now consulted for h/o pAfib. Patient previously followed with Dr. Mart at [facility] cardiology. Patient was treated for a left
hemispheric CVA 09/2022 at [facility]. At that time patient says she was diagnosed with pAfib and had a Biotronik ILR placed. Patient was started on Eliquis 5 mg BID and within about a month was readmitted with heme positive anemia and hemoglobin down to
5.7. Eliquis was stopped and patient had an upper endoscopy that was unremarkable, but she never completed colonoscopy and says it was canceled because anesthesia was concerned about providing sedation in close proximity to her stroke that had
occurred just a month before. Patient also had echo during her 09/2022 stroke admission at [facility] and her primary forest pathologist described echo as showing findings suggestive of hypertrophic cardiomyopathy with a dynamic ejection fraction and LVOT
gradient with Valsalva. Patient last saw her forest pathologist in the office 01/14/23 and at that time her loop recorder was interrogated and she was noted to have episodes of Afib up to about 3 hours with an overall burden of 1%. There is no mention
of a Watchman device and it appears that the plan was to watch for recurrence of significant atrial fibrillation and then anticoagulate at that time. Patient says she has not followed up with their office in quite some time, but continues to have a
bedside reader for her ILR at home. At last cardiology visit patient's usual doses of HCTZ and losartan were stopped. She was started on bisoprolol 5 mg daily. H She denies any palpitations. CVA on admission here at and no one has checked her
ILR. Telemetry review thus far by me shows no evidence of A-fib.
APMH:
h/o left hemispheric CVA treated at [facility] 09/2022
Paroxysmal Afib
s/p Biotronik ILR at [facility] 09/2022
Not chronically anticoagulated due to h/o anemia and GIB 10/2022
GIB treated at [facility] 10/2022
unremarkable upper endoscopy, never completed colonoscopy due to anesthesias concerns over recent stroke
DM 2
HTN
Hyperlipidemia
Former smoker
Possible h/o hypertrophic CM
Past Medical History
Past Medical History: Other (in HPI)
Past Surgical History: Cardiac (Biotronik ILR at [facility] 2022), Gynecological (hysterectomy), Tonsilectomy and Other (orbital floor fracture repair 05/2023)
Social History
Tobacco: Former Smoker (smoked from teenager to 2018)
Alcohol: Daily (glass of wine most days)
Drug: None
Personal: Single
Living: Alone
Employment: Retired
Family History
Family History: CAD (father)
Allergies / Home Medications
Allergy/AdvReac Type Severity Reaction Status Date / Time
lisinopril Allergy Itching Verified 12/08/23 18:32
�Medication �Instructions �Recorded �Confirmed �Type
aspirin 81 mg chewable tablet 81 mg PO DAILY Blood Clot 12/08/23 12/08/23 History
Prevention/Tx
furosemide 20 mg tablet 20 mg PO DAILY Fluid 12/08/23 12/08/23 History
Retention/Swelling
wfslkqxytmn-qcp-ohcmnlsen-vitC 1 cap PO BID Supplement 12/08/23 12/08/23 History
capsule (Glucosamine Complex-MSM
capsule)
losartan 50 mg tablet 50 mg PO HS Blood Pressure 12/08/23 12/08/23 History
metformin 500 mg tablet 500 mg PO BID Diabetes 12/08/23 12/08/23 History
rosuvastatin 40 mg tablet 40 mg PO HS High Cholesterol 12/08/23 12/08/23 History
tetrahydrozoline 0.05 % eye drops 1 drp BOTH EYES QIDPRN PRN dry eyes 12/08/23 12/08/23 History
(Visine)
Review of Systems
-
History Source: Patient
All other systems: Negative unless noted
Physical Exam
Vital Signs
Temp Pulse Resp BP Pulse Ox
97.7 F 79 16 129/83 97
12/10/23 07:58 12/10/23 11:48 12/10/23 11:48 12/10/23 11:48 12/10/23 11:48
GEN: NAD. AAOx3
HEENT: EOMI, MMM
LUNGS: CTA B/L, no wheezes or rales
CV: Reg, S1/S2, no murmur
ABD: soft, BS+, NT, ND
EXT: No clubbing, cyanosis, lesions or edema B/L
NEURO: Gross non-focal
SKIN: Warm, dry and pink. No rash
Lab Results
12/10/23 05:09
12/10/23 05:09
Troponin I 0.061 ng/ml H* D 12/09/23 03:13
Impression / Plan
-
PCP: Dr. Desirae Ty
Cardiology: Dr. Mart at [facility] [phone]
Impression:
Admitted with left sided weakness and paresthesias with new acute/subacute right frontoparietal CVA
h/o left hemispheric CVA treated at [facility] 09/2022
Paroxysmal Afib
s/p Biotronik ILR at [facility] 09/2022
Not chronically anticoagulated due to h/o anemia and GIB 10/2022
GIB treated at [facility] 10/2022
unremarkable upper endoscopy, never completed colonoscopy due to anesthesias concerns over recent stroke
DM 2
HTN
Hyperlipidemia
Former smoker
Possible h/o hypertrophic CM
Long QT on admission ECG
Echo September 2022: [facility] study, EF greater than 70%, increased LVOT gradient with Valsalva maneuver, grade 1 diastolic dysfunction
Echo 12/09/2023: study. Technically difficult study, EF greater than 75%, moderate to severe concentric LVH, normal regional wall motion, mild MR, mild TR
Plan:
-Patient came to [facility] Thursday with left sided weakness and paresthesias and was admitted for stroke and cardiology is now consulted for h/o pAfib. Patient previously followed with Dr. Mart at [facility] cardiology. Patient was treated for a left
hemispheric CVA 09/2022 at [facility]. At that time patient says she was diagnosed with pAfib and had a Biotronik ILR placed. Patient was started on Eliquis 5 mg BID and within about a month was readmitted with heme positive anemia and hemoglobin down to
5.7. Eliquis was stopped and patient had an upper endoscopy that was unremarkable, but she never completed colonoscopy and says it was canceled because anesthesia was concerned about providing sedation in close proximity to her stroke that had
occurred just a month before. Patient also had echo during her 09/2022 stroke admission at [facility] and her primary forest pathologist described echo as showing findings suggestive of hypertrophic cardiomyopathy with a dynamic ejection fraction and LVOT
gradient with Valsalva. Patient last saw her forest pathologist in the office 01/14/23 and at that time her loop recorder was interrogated and she was noted to have episodes of Afib up to about 3 hours with an overall burden of 1%. There is no mention
of a Watchman device and it appears that the plan was to watch for recurrence of significant atrial fibrillation and then anticoagulate at that time. Patient says she has not followed up with their office in quite some time, but continues to have a
bedside reader for her ILR at home. At last cardiology visit patient's usual doses of HCTZ and losartan were stopped. She was started on bisoprolol 5 mg daily. H She denies any palpitations. CVA on admission here at and no one has checked her
ILR. Telemetry review thus far by me shows no evidence of A-fib.
-LoopNetronik ILR remote check 12/08/2023 revealed frequent PACs and PVCs that were incorrectly alerting as A-fib, but no A-fib seen when histograms reviewed, 1 episode of NSVT on 05/07/2023, mean heart rate in the 80s, increasing ectopy since November
without organized A-fib. Last in office ILR check at [facility] was 01/14/2023 and at that time patient was having A-fib lasting up to 3 hours at a time with an overall burden of 1%.
-Patient with h/o GIB and anemia treated at [facility] 10/2022, but never had colonoscopy as explained above.
-Talked with patient about starting OAC and monitoring for recurrence of anemia plus pursuing her colonoscopy that was never completed last year during her GIB.
-Also talked with patient about watchman device and she would be interested.
-No Afib seen on tele this admission by my review. ECG reviewed by me is SR with long QTc. Recheck ECG.
-Echo from [facility] 09/2022 outlined above, patient continues with mod to sev LVH, but no LV gradient reported
-Patient was started on bisoprolol by Dr. Mart 01/14/23, but she stopped taking it for unclear reasons and is back on losartan. Would stop losartan and start Toprol XL 25 mg daily.
--- NOTE | 2023-12-10 13:55 | W.PN.NEURO.1 ---
Addendum entered and electronically signed by Arin Chew DO 12/10/23 21:23:
Studies reviewed.
I have personally examined the patient. I agree with the SPAR FINISHER's Note.
My addenda:
68 year-old with embolic appearing acute ischemic strokes, NIHSS 0 when I evaluated her earlier this evening.
Stroke alert called later this evening after she abruptly developed LLE numbness from the knee down. This is likely due to completing of her stroke/a manifestation of the stroke visualized on imaging.
Stat HCT done during stroke alert showed:
CTA Head: There is apparent high-grade stenosis within the mid inferior division of the right M2 segment of the middle cerebral artery. No aneurysm.
CTA Neck was also done which showed: There is a 3 x 4 x 5 mm focal superior directed outpouching along the mid left extracranial ICA which likely represents focal dissection/ pseudoaneurysm. There is atherosclerotic calcifications of the bilateral
carotid bifurcations/proximal ICAs without significant stenosis.
Also reviewed with cardiology prior to stroke alert; would switch to anticoagulation no sooner than 5 days s/p onset of stroke symptoms given stroke size/risk of hemorrhagic conversion.
Given new findings noted on CTA, vascular was contacted, reviewed with Dr. Platt--no change in management for now.
Will c/t follow.
Original Note:
Documented by User: Yecenia Trujillo NP 12/10/23 14:08
Today's Communication / Plan
-
.
Neuro Assessment/Plan
Assessment
68 year-old female with a history of prior stroke (denies any residual deficits) and fall with L orbital fracture in May 2023 (with residual L facial numbness from orbit to chin and L side visual impairment) with PAF off Eliquis due to concern for
bleed without a source found (details unclear, follows with [facility] as an OP) and several vascular risk factors including uncontrolled diabetes and daily ETOH use with worsening of baseline L facial numbness with lightheadedness on the
evening of 12/06, then abrupt onset of imbalance, leaning to the L and L frontoparietal headache of ~5:30PM on 12/07. She presented to the ER yesterday, 12/07. Her glucose level was 584. She was not a candidate for TNK/IAT due to being outside of
the time window.
-CT Head 12/08/23: There is a 2.3 x 1.7 cm hypodensity along the inferolateral right frontal lobe/right frontal operculum suspicious for acute/subacute infarction. There is a small focus of hyperdensity along the posterior medial aspect which may
represent petechial hemorrhage.
-MRI brain 12/09/23: Moderate to large nonhemorrhagic acute/subacute right frontoparietal region infarct. Additional scattered tiny foci of acute/subacute infarcts in the right frontal and parietal lobes. Questionable additional tiny focus of acute
subacute infarct in the left parieto-occipital region. Findings may reflect embolic etiology.
-MRA COW/Neck 12/09/23: No focal hemodynamically significant stenosis, aneurysm or occlusion.
I. Moderate/large acute/subacute right frontoparietal ischemic infarct with scattered tiny infarcts; appearance supportive of embolic etiology.
II. Uncontrolled diabetes. hbA1c is 13.5.
III. History of embolic appearing stroke with no residual deficits.
IV. Paroxysmal Afib, not on OAC due to bleeding of unknown origin while on Eliquis.
V. 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
. Low ferritin level.
Plan
-Continue DAPT with aspirin 81mg and Plavix 75mg daily for 21 days.
-Cardiology consultation to evaluate need for AKOSUA, options for stroke prevention if OAC is contraindicated. Loop recorder in place.
-Goal normotension. Monitor on telemetry.
-NIHSS and neurological checks per unit guidelines.
-Provide patient with a stroke education packet.
-LDL goal <70. LDL is 26. Continue home rosuvastatin 40mg daily.
-Goal normoglycemia, hbA1c is 13.5.
-PT/OT/ST evaluations.
-DVT prophylaxis.
-Records requested from [facility].
-Patient will need to follow-up with Neurology as an outpatient, may see the SPAR FINISHER or one of the physicians.
Subjective/Objective
Subjective Data
Date of Service: December 10, 2023
Patient anxious overnight, thought about signing out AMA twice. She reports feeling slightly off-balance with ambulation, more noticeable on her left side. She denies any headache, dizziness, vision changes, speech/swallow difficulty, numbness,
weakness, chest pain, palpitations, and shortness of breath.
Objective Data
Vital Signs
Temp Pulse Resp BP Pulse Ox
97.7 F 79 16 129/83 97
12/10/23 07:58 12/10/23 11:48 12/10/23 11:48 12/10/23 11:48 12/10/23 11:48
Lab Results
12/10/23 05:09
12/10/23 05:09
Sodium 138 mmol/L (135-145) 12/10/23 05:09
Potassium 4.1 mmol/L (3.5-5.1) 12/10/23 05:09
BUN 19 mg/dl (7-17) H 12/10/23 05:09
Glucose 234 mg/dl (70-99) H 12/10/23 05:09
Calcium 9.5 mg/dl (8.4-10.2) 12/10/23 05:09
LDL Cholesterol, Calc 26 mg/dl 12/09/23 05:01
Vitamin B12 810 pg/ml (239-931) 12/09/23 05:01
Patient Allergies
lisinopril Allergy (Verified 12/08/23 18:32)
Itching
LDL Level: <70, continue statin
Review of Systems
-
History Source: Patient
EENT: Negative Blurry Vision, Decreased Vision or Swallowing Difficulty
Respiratory: Negative Cough or Trouble Breathing
Cardiac: Negative Chest Pain or Palpitations
Abdomen/GI: Negative Nausea
Neuro: Ataxia; Negative Dizzy, Headache, Weakness, Numbness, Tremors or Speech Problem
Physical Exam
-
General: No Apparent Distress
Eyes: No Ptosis and PERRLA
HEENT: Normocephalic and Atraumatic
Neck: Full Range of Motion
GI: Non-distended
Extremities: No Clubbing, No Cyanosis and No Edema
Psych: Anxious
Extended Neurological Exam
Mood & Affect: Anxious
Attention Span & Concentration: Awake, Alert, Interactive and No Difficulty with 2 Step Request
Memory: Unremarkable and Able to Recall
Tremor: Hand Tremor Absent and Head Tremor Absent
Involuntary Movement: None
Speech: Quality Unremarkable, Quantity Unremarkable and Rate of Production Unremarkable
Cranial Nerve II: Left Eye: Pupillary Reactivity Unremarkable, Pupillary Size Unremarkable and Visual Salgado Intact
Cranial Nerve II: Right Eye: Pupillary Reactivity Unremarkable, Pupillary Size Unremarkable and Visual Salgado Intact
Cranial Nerves III, IV, : Extraocular Movement: Extraocular Movement Full in all Directions
Cranial Nerve V: Facial Sensation: Intact to Light Touch
Cranial Nerve VII: Facial Symmetry: Normal Facial Symmetry
Cranial Nerve VIII: Hearing: Unremarkable Hearing to Normal Conversational Volume
Cranial Nerves IX, X: Palate Movement: Palate Elevation Symmetric
Cranial Nerve XI: Shoulder Shrug: Unremarkable
Cranial Nerve XII: Tongue Protusion: Midline
Muscle Strength, Overall: Full Throughout
Muscle Bulk & Tone: Bulk Unremarkable and Tone Unremarkable
Pronator Drift: No Drift in Upper Extremities and No Drift in Lower Extremities
Deep Tendon Reflexes: Unremarkable Throughout
Touch Sensation: Double Simultaneous Stimulation Unremarkable
Coordination: Adzvbm-jtcl-[id number] Testing Unremarkable
Babinski Sign: Absent Bilaterally
Gait & Station: Up from Seated Without Problem
Modified Karen Score (MRS)
-
Modified Karen Scale (mRS): No significant disability. Able to carry out usual activities.
Score: 1
Data Reviewed
-
MRI Head: Report Reviewed and Image Reviewed
MRA Head: Report Reviewed and Image Reviewed
MRA Neck: Report Reviewed and Image Reviewed
Labs: Report Reviewed
Lipid Profile: Report Reviewed
HgbA1C: Report Reviewed
Reviewed with: Physician and Patient
Medications
-
Active Medications
Generic Name Dose Route Start Last Admin
Trade Name Freq PRN Reason Stop Dose Admin
Acetaminophen 650 mg 12/08/23 23:09
Acetaminophen 325 Mg Tablet PO 01/05/24 23:08
Q4HPRN PRN
h/a, fever>100.4F
Aspirin 81 mg 12/09/23 10:00 12/10/23 08:15
Aspirin 81 Mg Chewable Tablet PO 01/06/24 09:59 81 mg
DAILY KARTIK Administration
Bisacodyl 10 mg 12/08/23 23:09
Bisacodyl 10 Mg Rectal Suppository RECTAL 01/05/24 23:08
[id number] PRN
constipation
Clopidogrel Bisulfate 75 mg 12/10/23 09:00 12/10/23 08:32
Clopidogrel 75 Mg Tablet PO 12/31/23 08:59 75 mg
DAILY KARTIK Administration
Dextrose 12.5 grams 12/08/23 22:25
Dextrose 50% (0.5 Grams/Ml) 50 Ml Syringe IV 01/05/24 22:24
[id number] PRN
hypoglycemia
Protocol
Glucagon 1 mg 12/08/23 22:25
Glucagon 1 Mg Vial IM 01/05/24 22:24
PRN PRN
hypoglycemia
Protocol
Insulin Glargine 20 units/ 0.2 mls @ 0 mls/hr 12/10/23 22:00
Device SC 01/07/24 21:59
HS KARTIK
As Directed
Insulin Aspart 0 units 12/09/23 07:30 12/10/23 12:45
Insulin Aspart Moderate Resistance 300 Units/3 Ml Pen.Injctr SC 01/06/24 07:29 3 units
AC KARTIK Administration
Protocol
Insulin Aspart 8 units 12/10/23 07:30 12/10/23 12:45
Insulin Aspart (100 Units/Ml) 3 Ml Flexpen SC 01/07/24 07:29 8 units
AC KARTIK Administration
Losartan Potassium 50 mg 12/09/23 22:00 12/09/23 22:30
Losartan 50 Mg Tablet PO 01/06/24 21:59 50 mg
HS KARTIK Administration
Metformin HCl 1,000 mg 12/09/23 17:00 12/10/23 08:15
Metformin 1000 Mg Regular Release Tablet PO 01/06/24 16:59 1,000 mg
BID@0800,1700 KARTIK Administration
Polyethylene Glycol 17 grams 12/08/23 23:09
Polyethylene Glycol Powder 17 Grams Packet PO 01/05/24 23:08
DAILYPRN PRN
constipation
Rosuvastatin Calcium 40 mg 12/09/23 22:00 12/09/23 22:29
Rosuvastatin (Crestor) 40 Mg Tablet PO 01/06/24 21:59 40 mg
HS KARTIK Administration
Senna/Docusate Sodium 1 tablet 12/08/23 23:09
Docusate W/Senna (Loyda-Colace) Tablet PO 01/05/24 23:08
BIDPRN PRN
constipation
Sodium Chloride 0 flush 12/08/23 23:00
Sodium Chloride 0.9% (Flush) Syringe IV 01/05/24 22:59
PER PROTOCOL KARTIK
Tetrahydrozoline HCl 1 drop 12/08/23 23:09
Tetrahydrozoline 0.05% (Ophthalmic Drops) 15 Ml Bottle BOTH EYES 01/05/24 23:08
QIDPRN PRN
dry eyes
Home Medications
�Medication �Instructions �Recorded
aspirin 81 mg chewable tablet 81 mg PO DAILY Blood Clot 12/08/23
Prevention/Tx
furosemide 20 mg tablet 20 mg PO DAILY Fluid 12/08/23
Retention/Swelling
zfckqhtkpmb-rna-khzpfevst-vitC 1 cap PO BID Supplement 12/08/23
capsule (Glucosamine Complex-MSM
capsule)
losartan 50 mg tablet 50 mg PO HS Blood Pressure 12/08/23
metformin 500 mg tablet 500 mg PO BID Diabetes 12/08/23
rosuvastatin 40 mg tablet 40 mg PO HS High Cholesterol 12/08/23
tetrahydrozoline 0.05 % eye drops 1 drp BOTH EYES QIDPRN PRN dry eyes 12/08/23
(Visine)
NIH Stroke Score
Subsequent NIH Scale
Date of Subsequent NIH Scale: 12/10/23
Time of Subsequent NIH Scale: 10:15
NIH Stroke Score
Level of Consciousness: 0 - Alert
LOC Questions: 0-Answers both correctly
LOC Commands: 0-Performs both correctly
Best Horizontal Gaze: 0-Normal
Visual Salgado: 0=Normal, no visual loss
Facial Palsy: 0=Normal, symmetrical
Motor - Right Arm: 0=No drift 10 seconds
Motor - Left Arm: 0=No drift 10 seconds
Motor - Right Le-No drift 5 seconds
Motor - Left Le-No drift 5 seconds
Limb Ataxia: 0-Absent
Sensation: 0-Normal
Best Language: 0-No aphasia
Dysarthria: 0-Normal
Extinction and Inattention: 0-No abnormality
Total Score:: 0
Modified Karen (mRS) Score
Modified Karen Scale (mRS): No symptoms
Score: 0

Documented by User: Arin Chew DO 12/10/23 21:12
Modified Lenore Score (MRS)
-
Score: 1
NIH Stroke Score
NIH Stroke Score
Total Score:: 0
Modified Lenore (mRS) Score
Score: 0
--- NOTE | 2023-12-10 15:19 | W.PN.HOSP.TC ---
Today's Communication/Plan
-
Cardiology evaluation with consideration of AKOSUA given embolic CVA.
Continue cardiac monitoring
May require outpatient monitoring with concern for arrhythmia and embolic CVA
Continue DAPT
Continue statin
Adjust insulin dose
Assessment / Plan
Assessment / Plan
Impression:
Presentation with left facial and left upper extremity paresthesia
Acute CVA, right hemisphere.
Non-[place] troponin elevation.
Poorly controlled diabetes with severe hyperglycemia on presentation
Other conditions:
Paroxysmal atrial fibrillation confirmed with a loop recorder.
Previously on anticoagulation with Eliquis discontinued due to hemorrhagic complications
Essential hypertension.
Diabetes type 2.
Obesity with BMI of 38.
History of traumatic left orbital fracture with chronic left facial paresthesia
Daily alcohol use.
Former smoker.
Plan:
Acute CVA
Presentation with left facial numbness
CT head on admission: There is a 2.3 x 1.7 cm hypodensity along the inferolateral right frontal lobe/right frontal operculum suspicious for acute/subacute infarction. There is a small focus of hyperdensity along the posterior medial aspect which may
represent petechial hemorrhage.
Persistent left facial numbness (patient refers to worsening of chronic left facial numbness since her orbital fracture)
No other focal findings on exam.
-MRI brain 12/09/23: Moderate to large nonhemorrhagic acute/subacute right frontoparietal region infarct. Additional scattered tiny foci of acute/subacute infarcts in the right frontal and parietal lobes. Questionable additional tiny focus of acute
subacute infarct in the left parieto-occipital region. Findings may reflect embolic etiology.
-MRA COW/Neck 12/09/23: No focal hemodynamically significant stenosis, aneurysm or occlusion.
Loaded with Plavix and received aspirin on admission
Neurology consultation
MRI of the brain.
Echocardiogram with preserved biventricular function no evidence of anatomic or cardioembolic source. Consideration of AKOSUA. Cardiology consultation
Lipid profile. Continue statin
Obtain outpatient medical records.
Further decision in terms of DAPT versus anticoagulation depends on workup and medical record review.
Serial neurochecks.
Strict blood pressure and blood glucose control
Physical therapy evaluation
In review of medical records from [facility] admission 10/08 when patient presented with CVA. At that time cardiovascular relation with no documented atrial fibrillation.
Non-[place] troponin elevation baseline chest pain-free upon admission.
Troponin remains flat.
ECG sinus rhythm with no ischemic changes.
Echocardiogram.
Continue aspirin.
Paroxysmal atrial fibrillation.
Patient is not on any AV tanner blocking agents or arrhythmics at time of presentation
Not on anticoagulation at time of presentation. Reports hemorrhagic complications in the past led to discontinuation of anticoagulation
Will obtain medical records.
Essential hypertension.
Goal normotension in the settings of acute CVA
Continue losartan
Monitor blood pressure trend.
Poorly controlled diabetes with hyperglycemia upon presentation
Hemoglobin A1c 13.5
Carbohydrate controlled diet
Insulated on insulin Lantus/NovoLog dose being adjusted
Continue metformin 1 g twice a day
Continue basal bolus protocol
Obesity due to excessive calories.
BMI 38
Weight loss recommended.
This affects all aspects of care
Diabetic diet
Daily alcohol use.
Low risk for withdrawal per
Monitor closely
Anticipated Discharge: 24 - 48 hours
Subjective/Interval History
-
Date of Service: December 10, 2023
Objective Data
-
Labs:
Laboratory Results
12/10/23
05:09
WBC 5.6
Hgb 13.5
Hct 41.7
Plt Count 227
Sodium 138
Potassium 4.1
Chloride 100
Carbon Dioxide 27
BUN 19 H
Creatinine 0.8
Glucose 234 H
Calcium 9.5
Total Bilirubin 0.5
AST 34
ALT 28
Alkaline Phosphatase 88
Vital Signs:
Vital Signs
Temp Pulse Resp BP Pulse Ox
97.7 F 79 16 129/83 97
12/10/23 07:58 12/10/23 11:48 12/10/23 11:48 12/10/23 11:48 12/10/23 11:48
I&O
12/09/23 12/10/23 12/11/23
06:59 06:59 06:59
Intake Total 960 / 960
Balance 960 / 960
Physical Exam
-
General: Well Developed and No Apparent Distress
HEENT: Normocephalic, Atraumatic and Moist Mucous Membranes
Respiratory: Clear to Auscultation
Cardiac: Regular Rhythm and S1/S2; Negative Murmur, Rub or Gallop
GI: Soft, Nontender, Nondistended and Normal Bowel Sounds; Negative Organomegaly
Rectal: Deferred by Provider
Musculoskeletal: No Clubbing, No Cyanosis and No Edema
Skin: Negative Rash
Neuro: Nonfocal/Grossly Intact
[2023-12-10 16:23] VITALS: BP 132/83
[2023-12-10 16:50] LABS: Glucose - Point of Care 190 mg/dl (70-99)
[2023-12-10] MEDS: NOVOLOG FLEXPEN-MODERATE RESISTANCE 1 UNITS SC (17:03)
--- NOTE | 2023-12-10 17:30 | PTCARENOTE ---
answered call [facility] from a patient's room. patient found sitting on the edge of the bed, anxious. stated 'I am having a stroke.' NIH assessment completed. patient reports not having sensation below the knee on the left side. stroke alert called and
patient was taken to stat CT of the head.
[2023-12-10 18:10] LABS: Glucose - Point of Care 221 mg/dl (70-99)
[2023-12-10 18:31] LABS: % Basophils 0.2 % (0-2); % Eosinophils 0.2 % (0-6); % Immature Granulocytes 0.6 % (0-0.5); % Lymphocytes 34.1 % (20.5-51.1); % Monocytes 10.9 % (1.7-9.3); Absolute Lymphocytes 2.3 10^3/uL (1.2-3.4); Absolute Monocytes 0.7 10^3/uL (0.1-0.6); Absolute Neutrophils 3.6 10^3/uL (1.4-6.5); Hemoglobin 13.3 g/dL (12.0-16.0); Mean Corp Hgb Conc. 33.3 g/dL (33.0-37.0); Mean Corpuscular Hgb 24.7 pg (27.0-31.0); Mean Corpuscular Volume 74.3 fL (81.0-99.0); Nucleated Red Blood Cells % 0 %; Platelet Count 241 10^3/uL (130-400); Red Blood Cell Count 5.38 10^6/uL (4.20-5.40); Red Cell Dist. Width 19.9 % (11.5-14.5); White Blood Cell Count 6.6 10^3/uL (4.8-10.8)
[2023-12-10 18:38] LABS: INR 0.92; PT 12.3 Sec (11.4-14.6)
[2023-12-10 18:39] LABS: APTT 25.1 Sec (23.4-35.0)
[2023-12-10 18:43] LABS: Blood Urea Nitrogen 24 mg/dl (7-17); Carbon Dioxide 22 mmol/L (22-30); Chloride 100 mmol/L (98-107); Estimated Creatinine Clearance 60 ml/min; Glucose 231 mg/dl (70-99); Potassium 4.5 mmol/L (3.5-5.1); Sodium 136 mmol/L (135-145); eGFR > 60.00
[2023-12-10 19:45] VITALS: BP 107/73
[2023-12-10 19:57] LABS: Hepatitis C Antibody Negative (Negative)
[2023-12-10 20:36] LABS: Glucose - Point of Care 174 mg/dl (70-99)
[2023-12-10] MEDS: CRESTOR 40 MG PO (21:21)
[2023-12-10] MEDS: LANTUS 0.2 UNITS SC (21:22)
[2023-12-10] MEDS: TYLENOL 650 MG PO (21:24)
[2023-12-10 23:33] VITALS: BP 114/72
[2023-12-10] MEDS: MELATONIN 3 MG PO (23:46)
[2023-12-11 03:25] VITALS: BP 110/70
--- NOTE | 2023-12-11 07:33 | PN.DE.MGMTRT ---
Insulin Management
- -
12/11/2023 Diabetes Management F/U:
Patient admitted 12/07 with c/o numbness both hands, legs, face for 1 to 2 weeks worse on 12/07, found to have acute R hemisphere CVA.
PMH: A- Fib, HTN, HLD, prior CVA 10/09 @ [place]. Prior to admission was ordered metformin 500 mg BID patient admits she sometimes forgot it. She states her PCP Dr. Ty, does manage her diabetes and she has an appointment 12/13. She is not sure
what her A1C was. Patient states she has taken insulin in the past, but was diligent with exercise, diet and medication and her doctor stopped insulin. She has tested her glucose in the past but not sure where her meter is.
Glucose on admission ws 584. A1C 13.5%, Cr 1, eGFR > 60.
Pt awake, alert, sitting up on bed, offers no complaints, able to discuss diabetes mgt.
Pre meal glucose range yesterday 190 to 247 after AC NovoLog was increased to 8 units.
Fasting glucose 187 this AM, will increase HS Lantus to 22 units and AC NovoLog to 10 units.
Cont Metformin 1000 mg BID and moderate corrective.
Will follow and make further insulin adjustments if needed.
Pt was provided Contour Next glucose monitor and instructed on steps for testing with good return demonstration. Highlighted in diabetes education booklet times to test and target ranges. Also highlighted both insulins and reviewed action of both.
Provided demonstration of insulin pen use and printed step by step instructions for prep and injection technique. Patient able to return demonstrate required verbal cues. Nursing to reinforce and have patient self inject with nursing supervision.
Discussed with nurse.
Diabetes History
- -
Type of Diabetes: 2 requiring insulin
Pre-Admission Diabetes Regimen
12/10/23 12/10/23
05:09 18:15
Creatinine 0.8 1.0
Lab Results
Hemoglobin A1c 13.5 % (4.0-5.6) H 10/23/24 05:01
Insulin Pump Settings
IP Diabetes Regimen
12/10/23 12/10/23 12/10/23
05:09 07:53 12:03
Glucose 234 H
POC Glucose 247 H 228 H
12/10/23 12/10/23 12/10/23
16:48 18:09 18:15
Glucose 231 H
POC Glucose 190 H 221 H
12/10/23
20:34
Glucose
POC Glucose 174 H
Meal type: Lunch
Meal type: Breakfast
Amount consumed: 100%
Amount consumed: 100%
Patient Education
[2023-12-11] MEDS: LOW STRENGTH ASPIRIN 81 MG PO (07:52)
[2023-12-11] MEDS: PLAVIX 75 MG PO (07:52)
[2023-12-11] MEDS: GLUCOPHAGE 1000 MG PO (07:52)
[2023-12-11] MEDS: NOVOLOG FLEXPEN 8 UNITS SC (07:59)
[2023-12-11 08:00] LABS: Glucose - Point of Care 187 mg/dl (70-99)
[2023-12-11] MEDS: NOVOLOG FLEXPEN-MODERATE RESISTANCE 1 UNITS SC (08:01)
[2023-12-11 08:03] VITALS: BMI 37.4
--- NOTE | 2023-12-11 08:40 | W.PN.CARDCBS ---
Addendum entered and electronically signed by Shabana Brooks DO 12/11/23 16:07:
I saw and examined the patient.
The Line Installer Repairer's note was reviewed and I agree with the note.
Comment: Patient seen and examined. She has resolved neurologic symptoms and feels well and anxious to go home. She denies chest pain, shortness of breath or edema. No palpitations or dizziness.
General: No acute distress, AAOX3
Neck: Negative JVD
Heart: Regular, positive S1/S2, No murmur
Lungs: CTA b/l, negative wheezes/rales/rhonchi
Abd: Positive BS, NT/ND, neg rebound/rigidity/guarding
Ext: Negative cyanosis/clubbing/edema
Plan:
Moderate/large acute/subacute right frontoparietal ischemic infarct with scattered tiny infarcts with appearance supportive of embolic etiology
-Patient has a history of prior stroke in September 2022 without residual deficits; history of PAF not currently on anticoagulation with history of GI bleed treated at [facility]
-Biotronik ILR interrogation reviewed with neurology. No definite atrial fibrillation from December 2022 until December 08, 2023
-CHADS-VASC score is high at 6. Given prior history of atrial fibrillation and recurrent stroke would favor resuming anticoagulation
-Shared decision making with neurology and patient plan resume Eliquis 5 mg twice daily 5 days after stroke and stop aspirin/Plavix once on Eliquis anticoagulation
-If bleeding events recur could consider future watchman
-Discussed the importance of getting her home CPAP strap fixed and resuming daily nocturnal CPAP
-Discussed the importance of blood pressure control with goal normotension
-Discussed the importance of diabetic control with goal normoglycemia. Presenting hemoglobin markedly abnormal, A1c 13.5%!!
-LDL goal less than 70 mg/dL if not ideally closer to 55 mg/dL. LDL is currently 26. Continue home rosuvastatin 40 mg daily
-PT/OT/ST evaluations
-Recommend outpatient neurology follow-up
History of PAF in sinus rhythm with Biotronik ILR
-Plan to resume Eliquis 5 mg twice daily as above
-Patient has indicated they would like to transition care from [facility] to [facility]
-TSH is within normal limits
Moderate to severe concentric left ventricular hypertrophy with hyperdynamic LV systolic function estimated greater than 75% on Casillas's method on recent echocardiogram without obstruction
-Per prior reports an echocardiogram last year demonstrated LVH with dynamic LVOT gradients with Valsalva
-? uncontrolled HTN vs HCM-could consider outpatient cardiac MRI
-Blood pressure is reasonably controlled, continue Metoprolol therapy. Would avoid the use of diuretic
Abnormal cardiac troponin/abnormal EKG with multiple cardiac risk factors
-No chest pain suggestive of angina
-Recommend outpatient ischemic evaluation
Outpatient cardiac follow-up to be arranged
Will sign off, recall if needed
Original Note:
Today's Communication / Plan
-
-presented with embolic CVA
-h/o paroxymsal afib, had been off anticoagulation at time of presentation with CVA. Restart anticoagulation when safe from neurologic standpoint. Check CBC 1 week after restarting Eliquis
-f/u apptmt made for 1 month with [facility] cardiology
Impression / Plan
-
PCP: Dr. Desirae Ty
Cardiology: Dr. Mart at [facility] [phone]
Impression:
Admitted with left sided weakness and paresthesias with new acute/subacute right frontoparietal CVA
h/o left hemispheric CVA treated at [facility] 09/2022
Paroxysmal Afib
s/p Biotronik ILR at [facility] 09/2022
Not chronically anticoagulated due to h/o anemia and GIB 10/2022
GIB treated at [facility] 10/2022
unremarkable upper endoscopy, never completed colonoscopy due to anesthesias concerns over recent stroke
DM 2
HTN
Hyperlipidemia
Former smoker
Possible h/o hypertrophic CM
Long QT on admission ECG
Echo September 2022: [facility] study, EF greater than 70%, increased LVOT gradient with Valsalva maneuver, grade 1 diastolic dysfunction
Echo 12/09/2023: study. Technically difficult study, EF greater than 75%, moderate to severe concentric LVH, normal regional wall motion, mild MR, mild TR
Plan:
-Patient came to [facility] Thursday with left sided weakness and paresthesias and was admitted for stroke and cardiology is now consulted for h/o pAfib. Patient previously followed with Dr. Mart at [facility] cardiology. Patient was treated for a left
hemispheric CVA 09/2022 at [facility]. At that time patient says she was diagnosed with pAfib and had a Biotronik ILR placed. Patient was started on Eliquis 5 mg BID and within about a month was readmitted with heme positive anemia and hemoglobin down to
5.7. Eliquis was stopped and patient had an upper endoscopy that was unremarkable, but she never completed colonoscopy and says it was canceled because anesthesia was concerned about providing sedation in close proximity to her stroke that had
occurred just a month before. Patient also had echo during her 09/2022 stroke admission at [facility] and her primary md psychiatry described echo as showing findings suggestive of hypertrophic cardiomyopathy with a dynamic ejection fraction and LVOT
gradient with Valsalva. Patient last saw her md psychiatry in the office 01/14/23 and at that time her loop recorder was interrogated and she was noted to have episodes of Afib up to about 3 hours with an overall burden of 1%. There is no mention
of a Watchman device and it appears that the plan was to watch for recurrence of significant atrial fibrillation and then anticoagulate at that time. Patient says she has not followed up with their office in quite some time, but continues to have a
bedside reader for her ILR at home. At last cardiology visit patient's usual doses of HCTZ and losartan were stopped. She was started on bisoprolol 5 mg daily. She denies any palpitations.
- CVA on admission here at . Moderate/large acute/subacute right frontoparietal ischemic infarct with scattered tiny infarcts with appearance supportive of embolic etiology
-Patient has a history of prior stroke in September 2022 without residual deficits; history of PAF not currently on anticoagulation with history of GI bleed treated at [facility]- Telemetry review thus far by me shows no evidence of A-fib.
-Biotronik ILR remote check 12/08/2023 revealed frequent PACs and PVCs that were incorrectly alerting as A-fib, but no A-fib seen when histograms reviewed, 1 episode of NSVT on 05/07/2023, mean heart rate in the 80s, increasing ectopy since November
without organized A-fib. Last in office ILR check at [facility] was 01/14/2023 and at that time patient was having A-fib lasting up to 3 hours at a time with an overall burden of 1%.
-No Afib seen on tele this admission by my review. Does have PACs. ECG reviewed by me is SR with long QTc- QTc checked manually, appears to be ~480msec
-CHADS-VASC score is high at 6. Given prior history of atrial fibrillation and recurrent stroke would favor resuming anticoagulation
-Shared decision making with neurology and patient plan resume Eliquis 5 mg twice daily 5 days after stroke
-If bleeding events recur could consider future watchman
-check CBC 1 week after restarting Eliquis
-TSH WNL
-pt would like to transition care to [facility] from [facility] - will make f/u apptmt in our office.
-Patient with h/o GIB and anemia treated at [facility] 10/2022, but never had colonoscopy as explained above - f/u in outpatient setting for colonoscopy. Hgb stable this admission.
-Echo from [facility] 09/2022 outlined above, patient continues with mod to sev LVH, but no LV gradient reported
-Patient was started on bisoprolol by Dr. Mart 01/14/23, but she stopped taking it for unclear reasons and was on losartan. Losartan stopped 12/10/23 and started Toprol XL 25 mg daily.
-discussed importance of getting her home CPAP strap fixed and resuming daily nocturnal CPAP
-Discussed the importance of blood pressure control with goal normotension
-Discussed the importance of diabetic control with goal normoglycemia. Presenting hemoglobin markedly abnormal, A1c 13.5%!!-f/u with endocrine outpt
-LDL goal less than 70 mg/dL if not ideally closer to 55 mg/dL. LDL is currently 26. Continue home rosuvastatin 40 mg daily
-PT/OT/ST evaluations
-Recommend outpatient neurology follow-up
Abnormal cardiac troponin/abnormal EKG with multiple cardiac risk factors
-No chest pain suggestive of angina
-Recommend outpatient ischemic evaluation
Moderate to severe concentric left ventricular hypertrophy with hyperdynamic LV systolic function estimated greater than 75% on Casillas's method on recent echocardiogram without obstruction
-Per prior reports an echocardiogram last year demonstrated LVH with dynamic LVOT gradients with Valsalva
-? uncontrolled HTN vs HCM-could consider outpatient cardiac MRI
-Blood pressure is reasonably controlled, continue Metoprolol therapy. Would avoid the use of diuretic
Progress Note - [facility]
Subjective
Date of Service: December 11, 2023
feels good, no CP/SOB/edema/palps/lightheadedness
Objective
Labs:
12/10/23 18:15
12/10/23 18:15
Labs
Hgb 13.3 g/dL (12.0-16.0) 12/10/23 18:15
Hct 40.0 % (37.0-47.0) 12/10/23 18:15
Plt Count 241 10^3/uL (130-400) 12/10/23 18:15
PT 12.3 Sec (11.4-14.6) 12/10/23 18:15
INR 0.92 12/10/23 18:15
APTT 25.1 Sec (23.4-35.0) 12/10/23 18:15
Sodium 136 mmol/L (135-145) 12/10/23 18:15
Potassium 4.5 mmol/L (3.5-5.1) 12/10/23 18:15
BUN 24 mg/dl (7-17) H 12/10/23 18:15
Creatinine 1.0 mg/dL (0.6-1.0) 12/10/23 18:15
Glucose 231 mg/dl (70-99) H 12/10/23 18:15
Troponins
12/08/23 12/08/23 12/09/23
18:39 21:36 03:13
Troponin I 0.049 H* 0.048 H* 0.061 H* D
12/10/23
18:15
Troponin I 0.050 H*
Vital Signs and I&O:
Vital Signs
Temp Pulse Resp BP Pulse Ox
98.0 F 72 14 110/70 98
12/11/23 03:25 12/11/23 03:25 12/11/23 03:25 12/11/23 03:25 12/11/23 03:25
Vital Signs
Temp Pulse Resp BP Pulse Ox
98.0 F 72 14 110/70 98
12/11/23 03:25 12/11/23 03:25 12/11/23 03:25 12/11/23 03:25 12/11/23 03:25
Intake & Output
12/09/23 12/10/23 12/11/23 12/12/23
06:59 06:59 06:59 06:59
Intake Total 960 / 960 900 / 900
Balance 960 / 960 900 / 900
Physical Exam
Physical Exam
GEN: No distress, awake, Ox3
HEENT: supple, anicteric, mmm
LUNGS: CTA, no wheezes/rales
CV: Reg, S1/S2, 2/6 LINDSAY LSB
ABD: soft, BS+, NT/ND
EXT: No edema
NEURO: Gross non-focal
SKIN: No rash
[2023-12-11] MEDS: TOPROL XL 25 MG PO (08:48)
[2023-12-11 09:00] VITALS: BP 106/65
[2023-12-11 11:00] VITALS: BP 119/64
[2023-12-11 11:39] LABS: Glucose - Point of Care 222 mg/dl (70-99)
[2023-12-11] MEDS: NOVOLOG FLEXPEN-MODERATE RESISTANCE 3 UNITS SC (11:46)
[2023-12-11] MEDS: NOVOLOG FLEXPEN 10 UNITS SC (11:47)
--- NOTE | 2023-12-11 12:03 | W.PN.NEURO.1 ---
Today's Communication / Plan
-
Continue DAPT with aspirin 81mg and Plavix 75mg daily until utilization of anticoagulation which has been suggested to be started 5 days after stroke onset at which time both may be discontinued from a neurological perspective
Neuro Assessment/Plan
Assessment
68 year-old female with a history of prior stroke (denies any residual deficits) and fall with L orbital fracture in May 2023 (with residual L facial numbness from orbit to chin and L side visual impairment) with PAF off Eliquis due to concern for
bleed without a source found (details unclear, follows with [facility] cardiology as an OP) and several vascular risk factors including uncontrolled diabetes and daily ETOH use with worsening of baseline L facial numbness with lightheadedness on the
evening of 12/06, then abrupt onset of imbalance, leaning to the L and L frontoparietal headache of ~5:30PM on 12/07. She presented to the ER yesterday, 12/07. Her glucose level was 584. She was not a candidate for TNK/IAT due to being outside of
the time window.
-CT Head 12/08/23: There is a 2.3 x 1.7 cm hypodensity along the inferolateral right frontal lobe/right frontal operculum suspicious for acute/subacute infarction. There is a small focus of hyperdensity along the posterior medial aspect which may
represent petechial hemorrhage.
-MRI brain 12/09/23: Moderate to large nonhemorrhagic acute/subacute right frontoparietal region infarct. Additional scattered tiny foci of acute/subacute infarcts in the right frontal and parietal lobes. Questionable additional tiny focus of acute
subacute infarct in the left parieto-occipital region. Findings may reflect embolic etiology.
-MRA COW/Neck 12/09/23: No focal hemodynamically significant stenosis, aneurysm or occlusion.
Subsequent CTA Head: There is apparent high-grade stenosis within the mid inferior division of the right M2 segment of the middle cerebral artery. No aneurysm
I. Moderate/large acute/subacute right frontoparietal ischemic infarct with scattered tiny infarcts; appearance supportive of embolic etiology.
II. Uncontrolled diabetes. hbA1c is 13.5.
III. History of embolic appearing stroke with no residual deficits.
IV. Paroxysmal Afib, not on OAC due to bleeding of unknown origin while on Eliquis.
V. 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
. Low ferritin level.
Plan
-Continue DAPT with aspirin 81mg and Plavix 75mg daily until utilization of anticoagulation which has been suggested to be started 5 days after stroke onset at which time both may be discontinued from a neurological perspective
-LDL goal <70. LDL is 26. Continue home rosuvastatin 40mg daily.
-Goal normoglycemia, hbA1c is 13.5.
-Records requested from [facility].
-Patient will need to follow-up with Neurology as an outpatient, may see the DECATIZER or one of the physicians.
Subjective/Objective
Subjective Data
Date of Service: December 11, 2023
Objective Data
Vital Signs
Temp Pulse Resp BP Pulse Ox
36.7 C 78 16 119/64 96
12/11/23 11:00 12/11/23 11:00 12/11/23 11:00 12/11/23 11:00 12/11/23 11:00
Lab Results
12/10/23 18:15
12/10/23 18:15
PT 12.3 Sec (11.4-14.6) 12/10/23 18:15
INR 0.92 12/10/23 18:15
APTT 25.1 Sec (23.4-35.0) 12/10/23 18:15
Sodium 136 mmol/L (135-145) 12/10/23 18:15
Potassium 4.5 mmol/L (3.5-5.1) 12/10/23 18:15
BUN 24 mg/dl (7-17) H 12/10/23 18:15
Glucose 231 mg/dl (70-99) H 12/10/23 18:15
Calcium 10.0 mg/dl (8.4-10.2) 12/10/23 18:15
LDL Cholesterol, Calc 26 mg/dl 12/09/23 05:01
Vitamin B12 810 pg/ml (745-093) 12/09/23 05:01
Patient Allergies
lisinopril Allergy (Verified 12/08/23 18:32)
Itching
Past History
Past History
ED Past Medical History: Arrthythmia (Atrial fibrillation), CVA (Ischemic stroke September 2022), HTN, Hypercholesterolemia, NIDDM and Other (Neuropathy, obesity)
Family History
Family History: Other (Reviewed and noncontributory)
Medications
-
Medications:
Generic Name Dose Route Start Last Admin
Trade Name Freq PRN Reason Stop Dose Admin
Acetaminophen 650 mg 12/08/23 23:09 12/10/23 21:24
Acetaminophen 325 Mg Tablet PO 01/05/24 23:08 650 mg
Q4HPRN PRN Administration
h/a, fever>100.4F
Aspirin 81 mg 12/09/23 10:00 12/11/23 07:52
Aspirin 81 Mg Chewable Tablet PO 01/06/24 09:59 81 mg
DAILY KARTIK Administration
Bisacodyl 10 mg 12/08/23 23:09
Bisacodyl 10 Mg Rectal Suppository RECTAL 01/05/24 23:08
[id number] PRN
constipation
Clopidogrel Bisulfate 75 mg 12/10/23 09:00 12/11/23 07:52
Clopidogrel 75 Mg Tablet PO 12/31/23 08:59 75 mg
DAILY KARTIK Administration
Dextrose 12.5 grams 12/08/23 22:25
Dextrose 50% (0.5 Grams/Ml) 50 Ml Syringe IV 01/05/24 22:24
[id number] PRN
hypoglycemia
Protocol
Glucagon 1 mg 12/08/23 22:25
Glucagon 1 Mg Vial IM 01/05/24 22:24
PRN PRN
hypoglycemia
Protocol
Insulin Glargine 22 units/ 0.22 mls @ 0 mls/hr 12/11/23 08:06
Device SC 01/07/24 21:59
HS KARTIK
As Directed
Insulin Aspart 0 units 12/09/23 07:30 12/11/23 11:46
Insulin Aspart Moderate Resistance 300 Units/3 Ml Pen.Injctr SC 01/06/24 07:29 3 units
AC KARTIK Administration
Protocol
Insulin Aspart 10 units 12/11/23 08:06 12/11/23 11:47
Insulin Aspart (100 Units/Ml) 3 Ml Flexpen SC 01/07/24 07:29 10 units
AC KARTIK Administration
Metformin HCl 1,000 mg 12/09/23 17:00 12/11/23 07:52
Metformin 1000 Mg Regular Release Tablet PO 01/06/24 16:59 1,000 mg
BID@0800,1700 KARTIK Administration
Metoprolol Succinate 25 mg 12/11/23 08:00 12/11/23 08:48
Metoprolol 25 Mg Extended Release Tablet PO 01/08/24 07:59 25 mg
DAILY KARTIK Administration
Polyethylene Glycol 17 grams 12/08/23 23:09
Polyethylene Glycol Powder 17 Grams Packet PO 01/05/24 23:08
DAILYPRN PRN
constipation
Rosuvastatin Calcium 40 mg 12/09/23 22:00 12/10/23 21:21
Rosuvastatin (Crestor) 40 Mg Tablet PO 01/06/24 21:59 40 mg
HS KARTIK Administration
Senna/Docusate Sodium 1 tablet 12/08/23 23:09
Docusate W/Senna (Loyda-Colace) Tablet PO 01/05/24 23:08
BIDPRN PRN
constipation
Sodium Chloride 0 flush 12/08/23 23:00
Sodium Chloride 0.9% (Flush) Syringe IV 01/05/24 22:59
PER PROTOCOL KARTIK
Tetrahydrozoline HCl 1 drop 12/08/23 23:09
Tetrahydrozoline 0.05% (Ophthalmic Drops) 15 Ml Bottle BOTH EYES 01/05/24 23:08
QIDPRN PRN
dry eyes
[2023-12-11 12:38] VITALS: BP 143/82; PULSE 78
--- NOTE | 2023-12-11 12:44 | W.DS.TRANS ---
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
-
Discharge Instructions:
Discharge Diagnosis/Procedures Embolic CVA
Diet Diabetic, Carb Controlled
Blood Work check CBC 1 week after restarting Eliquis
Instructions:
Stand-Alone Forms:
Changes to Home Medications: Yes
Discharge Medications:
DC Medications w/original date entered in [employer]
furosemide 20 mg tablet 20 mg PO DAILY Fluid Retention/Swelling 12/08/23
lpjiqszabny-xpw-guekiwsnd-vitC capsule (Glucosamine Complex-MSM capsule) 1 cap PO BID Supplement 12/08/23
losartan 50 mg tablet 50 mg PO HS Blood Pressure 12/08/23
rosuvastatin 40 mg tablet 40 mg PO HS High Cholesterol 12/08/23
tetrahydrozoline 0.05 % eye drops (Visine) 1 drp BOTH EYES QIDPRN PRN dry eyes 12/08/23
apixaban 5 mg tablet (Eliquis) 5 mg PO BID #60 tabs 12/11/23
aspirin 81 mg chewable tablet 81 mg PO DAILY Blood Clot Prevention/Tx #0 tabs 12/11/23
blood sugar diagnostic (Accu-Chek Guide test strips) ##200 12/11/23
clopidogrel 75 mg tablet 75 mg PO DAILY #3 tabs 12/11/23
insulin aspart U-100 100 unit/mL (3 mL) subcutaneous pen (Novolog FlexPen U-100 Insulin aspart) 10 unit (0.1 mL) SC AC #5 ea 12/11/23
insulin glargine 100 unit/mL (3 mL) subcutaneous pen (Basaglar KwikPen U-100 Insulin) 22 unit (0.22 mL) SC HS #5 ea 12/11/23
lancets (Accu-Chek Softclix Lancets) #200 ea 12/11/23
metformin 1,000 mg tablet 1,000 mg PO BID@0800,1700 #120 tabs 12/11/23
metoprolol succinate 25 mg tablet,extended release 24 hr 25 mg PO DAILY #30 tabs 12/11/23
pantoprazole 40 mg tablet,delayed release (Protonix) 40 mg PO DAILY #30 tabs 12/11/23
pen needle, diabetic 32 gauge x ' (BD Ultra-Fine Yandy Pen Needle) ##200 12/11/23
Home Medication Changes
Initiated on insulin with increased dose of metformin
Initiated on dual antiplatelet therapy to be transition to anticoagulation with Eliquis on 12/15
Pending Results: No
--- NOTE | 2023-12-11 13:21 | CM ---
Addendum entered by Lana William 12/11/23 13:23:
IMM benefit explained; form arcelia @ 1320
Original Note:
Met with patient at bedside; offer for VN and script for outpatient PT declined
Reported that a friend will transport her home
Plan: discharge to home today; no needs
--- NOTE | 2023-12-11 14:29 | PN.CDI ---
CDI
- -
CDI:
Physician Documentation Request
Admit Date: 12/08/23 22:[address] Platt,
Patient admitted with CVA. Troponin noted to be elevated.
H&P states 'Nonischemic myocardial injury'
Hospitalist progress notes state 'Non-HI troponin elevation'
In an attempt to clarify potentially conflicting documentation, please clarify the diagnosis associated with the elevated troponin:
Nonischemic myocardial injury
Non-HI troponin elevation.
Other
Use of terms such as suspected, likely, concern for, or probable (associated with a specific diagnosis that is being evaluated, monitored, or treated as if it exists) are acceptable and can be coded in the inpatient setting, when documented at the
time of discharge.
Thank you,
Gloria De RN, BSN
CDI Specialist
tiger text
Please use your independent medical judgment in providing your response.
== END 2023-12-11 14:13 | disposition home or self-care (01) | DRG 66 ==
LOC: 3 WEST ACU 22:43
PROVIDERS: Clinical Nurse Specialist Family Health; Physician Assistant; ADMITTING PHYSICIAN Hospitalist; ATTENDING PHYSICIAN Internal Medicine; CONSULT PHYSICIAN Internal Medicine Cardiovascular Disease; EMERGENCY PHYSICIAN Student in an Organized Health Care Education/Training Program; FAMILY PHYSICIAN Internal Medicine; OTHER PHYSICIAN Psychiatry & Neurology Neurology
DX: I63.40 Cerebral infarction due to embolism of unspecified cerebral artery (principal); I48.0 Paroxysmal atrial fibrillation; I11.9 Hypertensive heart disease without heart failure; E11.65 Type 2 diabetes mellitus with hyperglycemia; E11.42 Type 2 diabetes mellitus with diabetic polyneuropathy; H54.62 Unqualified visual loss, left eye, normal vision right eye; E78.00 Pure hypercholesterolemia, unspecified; E66.09 Other obesity due to excess calories; R79.89 Other specified abnormal findings of blood chemistry; R47.81 Slurred speech; R26.0 Ataxic gait; R29.701 NIHSS score 1; R29.700 NIHSS score 0; Z68.38 Body mass index [BMI] 38.0-38.9, adult; Z88.8 Allergy status to other drugs, medicaments and biological substances; Z87.891 Personal history of nicotine dependence; Z82.49 Family history of ischemic heart disease and other diseases of the circulatory system; Z79.899 Other long term (current) drug therapy; Z79.84 Long term (current) use of oral hypoglycemic drugs; Z79.82 Long term (current) use of aspirin
CPT/HCPCS: 70450; 70496; 70498; 70544; 70548; 70551; 80048; 80053; 80061; 81003; 81015; 82607; 82728; 82746; 82962; 83036; 83540; 83550; 83735; 84443; 84484; 85025; 85610; 85730; 86803; 87086; 93005; 93306; 97116; A9585; Q9950; Q9967

== ENCOUNTER 2024-01-04 11:39 | Emergency (ER) | payer OTHER, SELFPAY ==
[2024-01-04 11:42] VITALS: BP 119/63
[2024-01-04 11:44] LABS: Glucose - Point of Care 111 mg/dl (70-99)
[2024-01-04 12:29] VITALS: BP 114/99
--- NOTE | 2024-01-04 12:42 | ED.GENMED ---
History of Present Illness
<Tamara Mark MD - Last Filed: 01/04/24 16:25>
General
Chief Complaint: Dizziness
Source: patient and other (Friend who is bedside)
Exam Limitations: none
Time Seen by Provider: 01/04/24 12:29
History of Present Illness
History of Present Illness:
This patient is a 68-year-old female presents emergency department with feeling 'off'. [place] feeling like someone is pushing her from behind causing her to fall forward and lose her balance and she needs to grab onto the wall. She first noticed
this last night, and then again today. It happens when she tries to stand or walk and then will go away. She denies a sense of spinning, numbness, tingling, focal weakness, change in vision, change in speech, chest pain, dyspnea, neck pain, back
pain, abdominal pain. She does not notice a change in the symptoms when she turns her head. 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
was transition to a DOAC which she is compliant with. Patient presented to the cardiology office today and after an evaluation was referred to the emergency department.
Past History
<Tamara Mark MD - Last Filed: 01/04/24 16:25>
Past History
ED Past Medical History: Arrthythmia (Atrial fibrillation), CVA (Ischemic stroke September 2022), HTN, Hypercholesterolemia, IDDM and Other (Neuropathy, obesity)
Social History
Tobacco: Former smoker
Alcohol: Occasional
Living: with roommate
Family History
Family History: Other (Reviewed and noncontributory)
Phy Exam
<Tamara Mark MD - Last Filed: 01/04/24 16:25>
Physical Exam
Physical Exam:
GENERAL: Alert , in no apparent distress
EYE: pupils equal and reactive, no photophobia, EOMI, no nystagmus
NECK: Supple, no significant adenopathy.
ENT: o/p clr, mmm.
CARDIAC: Regular rate and rhythm .
LUNGS: Clear breath sounds bilaterally, no acute respiratory distress, no wheezes/rales/rhonchi
ABDOMEN: Soft, without focal tenderness, no r/g, no cvat
NEUROLOGICAL: Alert and oriented, no focal neuro deficits, motor 5 out of 5, sensory intact, cranial nerves II through XII intact, [id number]-[id number] normal. Patient noted to develop severe off-balance feeling while walking in the emergency department
although did not appear ataxic.
SKIN: Warm and dry, skin intact.
MUSCULOSKELETAL: No edema, well perfused.
PSYCH: Normal and appropriate interaction.
Course
<Tamara Mark MD - Last Filed: 01/04/24 16:25>
Orders/Labs/Results
Orders:
Orders
01/04/24 11:44
Electrocardiogram (*1) Urgent
Reason for Study: Syncope
EKG- Treatment ONCE
01/04/24 12:00
Diabetes Education Consult Routine
Reason for Consult: Other
Insulin Instruction
Other reason for consult: pt has a lot of management questions re- diabetes. new to insulin usage
Newly Diagnosed?: No
01/04/24 12:41
CT Head W/o Iv Contrast Urgent
Comment:
Reason For Exam: dizzy/off balance, hx recent ant circ cva
Cardiac Monitoring- Treatment ONCE
EKG- Treatment ONCE
01/04/24 12:45
Meclizine [Antivert] 25 mg PO NOW STA
01/04/24 12:55
Complete Blood Count/No Diff Urgent
Comprehensive Metabolic Panel Urgent
Troponin I Urgent
01/04/24 16:23
MRI Brain [MR Brain Without Contrast] Urgent
Comment:
Reason For Exam: dizziness
Recent pill cam endoscopy?: No
Abnormal Lab Results
01/04/24 01/04/24
11:43 12:55
WBC 4.4 L 10^3/uL
(4.8-10.8)
MCH 25.5 L pg
(27.0-31.0)
MCHC 30.8 L g/dL
(33.0-37.0)
RDW 18.8 H %
(11.5-14.5)
POC Glucose 111 H mg/dl
(70-99)
01/04/24 12:55
01/04/24 12:55
Vital Signs
Initial and Last Documented VS:
Initial Vital Signs
Temp Pulse Resp BP Pulse Ox
98.0 F 69 16 119/63 96
01/04/24 11:42 01/04/24 11:42 01/04/24 11:42 01/04/24 11:42 01/04/24 11:42
Last Documented Vital Signs
Temp Pulse Resp BP Pulse Ox
98.0 F 79 12 116/75 94
01/04/24 11:42 01/04/24 18:44 01/04/24 12:00 01/04/24 18:44 01/04/24 18:44
<Priscila West, DO - Last Filed: 01/04/24 21:16>
Orders/Labs/Results
Orders:
Orders
01/04/24 11:44
Electrocardiogram (*1) Urgent
Reason for Study: Syncope
EKG- Treatment ONCE
01/04/24 12:00
Diabetes Education Consult Routine
Reason for Consult: Other
Insulin Instruction
Other reason for consult: pt has a lot of management questions re- diabetes. new to insulin usage
Newly Diagnosed?: No
01/04/24 12:41
CT Head W/o Iv Contrast Urgent
Comment:
Reason For Exam: dizzy/off balance, hx recent ant circ cva
Cardiac Monitoring- Treatment ONCE
EKG- Treatment ONCE
01/04/24 12:45
Meclizine [Antivert] 25 mg PO NOW STA
01/04/24 12:55
Complete Blood Count/No Diff Urgent
Comprehensive Metabolic Panel Urgent
Troponin I Urgent
01/04/24 16:23
MRI Brain [MR Brain Without Contrast] Urgent
Comment:
Reason For Exam: dizziness
Recent pill cam endoscopy?: No
Abnormal Lab Results
01/04/24 01/04/24
11:43 12:55
WBC 4.4 L 10^3/uL
(4.8-10.8)
MCH 25.5 L pg
(27.0-31.0)
MCHC 30.8 L g/dL
(33.0-37.0)
RDW 18.8 H %
(11.5-14.5)
POC Glucose 111 H mg/dl
(70-99)
01/04/24 12:55
01/04/24 12:55
Vital Signs
Initial and Last Documented VS:
Initial Vital Signs
Temp Pulse Resp BP Pulse Ox
98.0 F 69 16 119/63 96
01/04/24 11:42 01/04/24 11:42 01/04/24 11:42 01/04/24 11:42 01/04/24 11:42
Last Documented Vital Signs
Temp Pulse Resp BP Pulse Ox
98.0 F 79 12 116/75 94
01/04/24 11:42 01/04/24 18:44 01/04/24 12:00 01/04/24 18:44 01/04/24 18:44
<Priscila West DO - Last Filed: 01/04/24 21:16>
*Critical Care Note
Total Time (30-74mins, 75-104mins- exclusive of procedures): Not Applicable
<Tamara Mark MD - Last Filed: 01/04/24 16:25>
Update Note
Update Note:
Patient presents to the Emergency Department with __off-balance
Number and Complexity of Problems Addressed at the Encounter
� Chronic conditions affecting care:
� Acute Exacerbation and/or Progression of Chronic Illness: Acute CVA recently
� Differential Diagnosis includes: But not limited to peripheral benign vertigo, central vertigo, intracerebral bleed, CVA, etc.
Amount and/or Complexity of Data to be Reviewed and Analyzed
� I performed an independent evaluation of and my interpretation is:
EKG:read by me? nsr, nonspec T wave karol laterally
CT:No acute intracranial abnormality noted. Redemonstration of evolving nonhemorrhagic right frontoparietal lobe infarct.
Xrays:
Laboratory Studies:generally unremarkable
Other:
� Review of other/old records reveals: November 2023 d/c summary, cardiology notes: recent ant circ CVA, put on DAPT then changed to DOAC. Hx of afib and GIB.
� Clinical information was obtained by an independent historian: Friend who is bedside
� Prescriptions/Medications Considered but not given:
� Further testing considered but not performed:
Risk of Complications and/or Morbidity or Mortality of Patient Management
� Social determinants of health affecting care:
� Discussion with other providers (PCP, Hospitalists, Consultants, etc):
� Escalation of care including admission/observation vs risk of discharge considered: 424PM PROLONGED OBSERVATION HERE. NO RED FLAGS TO SUGGEST CENTRAL ETIOOGY. S/P MEDS, PT ATE, SITTING UPRIGHT, SMILING, FEELS WELL WITHOUT
SXS. NEURO TO SEE, LIKELY D/C WITH CLOSE F/U.
<Priscila West DO - Last Filed: 01/04/24 21:16>
Update Note
Update Note:
Patient presents to the Emergency Department with __off-balance
Number and Complexity of Problems Addressed at the Encounter
� Chronic conditions affecting care:
� Acute Exacerbation and/or Progression of Chronic Illness: Acute CVA recently
� Differential Diagnosis includes: But not limited to peripheral benign vertigo, central vertigo, intracerebral bleed, CVA, etc.
Amount and/or Complexity of Data to be Reviewed and Analyzed
� I performed an independent evaluation of and my interpretation is:
EKG:read by me? nsr, nonspec T wave karol laterally
CT:No acute intracranial abnormality noted. Redemonstration of evolving nonhemorrhagic right frontoparietal lobe infarct.
Xrays:
Laboratory Studies:generally unremarkable
Other:
� Review of other/old records reveals: November 2023 d/c summary, cardiology notes: recent ant circ CVA, put on DAPT then changed to DOAC. Hx of afib and GIB.
� Clinical information was obtained by an independent historian: Friend who is bedside
� Prescriptions/Medications Considered but not given:
� Further testing considered but not performed:
Risk of Complications and/or Morbidity or Mortality of Patient Management
� Social determinants of health affecting care:
� Discussion with other providers (PCP, Hospitalists, Consultants, etc):
�
Attending Signout Note (Priscila West DO)
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 Patient
hemodynamically stable in the emergency department with grossly unremarkable workup, negative CT brain, normal laboratory analysis, nonischemic EKG. Patient did receive meclizine with interval improvement of symptoms. Pending neurology
consultation at time of sign
16:20 -in discussion with neurology, recommending the patient get an MRI. Patient does not want to stay in the hospital, so neurology is recommending expedited MRI today. Call placed to radiology
18:00 -patient's MRI does show an acute infarct, new from prior imaging. Discussion with patient, adamant about not staying in the hospital. Explained risks of leaving the hospital with an acute stroke, while on active anticoagulation. Did update
neurology
19:00 -additional attempts made to get patient to stay in the hospital given acute stroke while on Eliquis. Patient continues to refuse, understands risks of leaving, will leave against medical advice. Notes she will follow-up with her doctor and
the neurologist. Return precautions discussed and patient verbalized understanding
-Priscila West,
ED Attending Note
<Tamara Mark MD - Last Filed: 01/04/24 16:25>
-
Portions of this chart may have been created with voice recognition software.� Occasional wrong word or��sound alike� substitutions may have occurred due to the inherent limitations of voice recognition software.
Discharge Plan
Departure
Patient Disposition: Against Medical Advice
Date of Disposition: 01/04/24
Time of Disposition: 19:11
Patient with high blood pressure during this ER visit?: No
Condition: Good
Discharge Problem:
CVA (cerebral vascular accident)
Instructions: Stroke - Discharge instructions, Dizziness
Prescriptions:
New
meclizine 12.5 mg tablet
12.5 mg PO TID PRN (Reason: dizziness) Qty: 15 0RF
No Action
losartan 50 mg Tablet
50 mg PO HS
tetrahydrozoline [Visine] 0.05 % Drops
1 drp BOTH EYES QIDPRN PRN (Reason: dry eyes)
furosemide 20 mg Tablet
20 mg PO DAILY
rosuvastatin 40 mg Tablet
40 mg PO HS
Glucosamine Complex-MSM Capsule
1 cap PO BID
metformin 1,000 mg Tablet
1,000 mg PO BID@0800,1700 Qty: 120 0RF
Patient Comments:
pt thought was 500 mg not 1000
metoprolol succinate 25 mg Tablet Extended Release 24 Hr
25 mg PO DAILY Qty: 30 0RF
insulin aspart U-100 [Novolog FlexPen U-100 Insulin] 100 unit/mL (3 mL) Insulin Pen
10 unit SC AC Qty: 5 3RF
insulin glargine [Basaglar KwikPen U-100 Insulin] 100 unit/mL (3 mL) Insulin Pen
22 unit SC HS Qty: 5 4RF
(DME) pen needle, diabetic [BD Ultra-Fine Yandy Pen Needle] 32 gauge x 532' Needle
Qty: 200 0RF
Rx Instructions:
As Directed
Eliquis 5 mg tablet
5 mg PO BID Qty: 60 0RF
pantoprazole [Protonix] 40 mg tablet,delayed release (DR/EC)
40 mg PO DAILY Qty: 30 1RF
(DME) Contour Next Test Strips Strip
Qty: 100 0RF
Rx Instructions:
Pt Testing 3 times a day
(DME) lancets [Microlet Lancet] Misc
Qty: 100 0RF
Rx Instructions:
Pt testing 3 times a day
Referrals:
Keren Trujillo MD [Active] -
Desirae Ty DO [Family Provider] - Follow up in 2-3 days
Activity Restrictions/Additional Instructions:
You were seen in the emergency department for dizziness
You were found to have an acute stroke, which was found on an MRI. You were seen by neurology and it was recommended that you stay in the hospital for continued management and monitoring. You are refusing, despite understanding that you have a new
stroke, which could worsen and lead to severe neurologic symptoms and deficits. You will need to follow-up with a neurologist as soon as possible.
Please additionally follow-up closely with your primary care physician.
Return to the emergency department for any worsening of your symptoms, or any development of chest pain, difficulty breathing, abdominal pain with persistent vomiting and inability to tolerate food or liquid by mouth (concern for dehydration),
weakness or numbness to her extremities, headache or confusion, fever greater than 100.4, or any additional symptoms that are concerning to you.
Thank you for choosing [facility].
Interventions
Interventions:
*Risk Screen - Suicide Last Done: 01/04/24 11:52
*General Assessment Last Done: 01/04/24 19:41
*Neglect/Abuse Screening Last Done: 01/04/24 11:52
ED- Fall Risk Assessment Last Done: 01/04/24 13:36
*ED COVID-19 Vaccine History Last Done: 01/04/24 12:14
*Nursing Disposition Last Done: 01/04/24 19:41
ED- Cardiac Assessment Last Done: 01/04/24 12:15
ED- Neurological Assessment Last Done: 01/04/24 12:15
Discharge Date and Time
Discharge Date/Time: 01/04/24 19:42
Print Language: GREENLANDIC
[2024-01-04] MEDS: ANTIVERT 25 MG PO (12:58)
[2024-01-04 13:08] VITALS: BP 106/69
[2024-01-04 13:13] LABS: Mean Corp Hgb Conc. 30.8 g/dL (33.0-37.0); Mean Corpuscular Hgb 25.5 pg (27.0-31.0); Platelet Count 202 10^3/uL (130-400); Red Cell Dist. Width 18.8 % (11.5-14.5); White Blood Cell Count 4.4 10^3/uL (4.8-10.8)
[2024-01-04 13:27] LABS: ALT (SGPT) 30 U/L (0-35); AST (SGOT) 35 U/L (14-36); Albumin 4.2 g/dl (3.5-5.0); Alkaline Phosphatase 58 U/L (38-126); Blood Urea Nitrogen 17 mg/dl (7-17); Calcium 9.3 mg/dl (8.4-10.2); Carbon Dioxide 27 mmol/L (22-30); Chloride 101 mmol/L (98-107); Glucose 83 mg/dl (70-99); Potassium 4.2 mmol/L (3.5-5.1); Sodium 142 mmol/L (135-145); Total Bilirubin 0.5 mg/dl (0.2-1.3); eGFR > 60.00
[2024-01-04 13:37] LABS: Troponin I 0.019 ng/ml
[2024-01-04 14:17] VITALS: BP 109/61
--- NOTE | 2024-01-04 14:46 | CON.NEURO ---
Consultation
Order
Date of Consultation: 01/04/24
Requesting Provider: Katt Ulloa CRNP
Reason for consult:Acute/subacute CVA small petechial hemorrhage.
CC: change in balance
HPI: This is a 68-year-old RH woman who presented to [facility] on 01/04/2024 with imbalance.
Ms. Boswell reports feeling like someone is pushing her forward, which started last night. She denies experiencing vertigo, gait accelerated, headache, ear pressure or tinnitus. No reports of additional new neurological symptoms. Patient does
have chronic distal paresthesias
She has a history of paroxysmal A-fib and 2 strokes with the first occurring in September 2022 presenting with transient left hand numbness and difficulties with speaking([facility]) and the second presenting with right facial sensory
deficits(11/2023, [facility]). Ms. 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 She was transitioned from DAPT to Eliquis on December 16, 2023
ER VS: 119/63, 69, afebrile
EKG: NSR, QTc Int : 497 ms
PDMP: No recently prescribed medication
Labs: Glucose�83, normal normal sodium, platelets, GFR,�4.4, hemoglobin�12.0, LDL(12/09/2023) 26, HbA1C 13.5(12/09/2023), EtOH addiction,
CT head(01/04/2024)-no acute infarcts.
CTA head(12/10/2023)-high-grade stenosis within the mid inferior division of the right M2 segment
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
PSH: ILR, tonsillectomy, RYNE, L cataract surgery
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
FH: father-lung cancer, mother-multiple myeloma
All:ACEIs
ROS:Constitutional: Negative. Negative for chills, fever and unexpected weight change.
HENT: Negative for ear pain, hearing loss, tinnitus and trouble swallowing.
Eyes: Negative. Negative for photophobia, pain and visual disturbance.
Respiratory: Negative for cough, choking and shortness of breath.
Cardiovascular: Negative for chest pain, palpitations and leg swelling.
Gastrointestinal: Negative for abdominal pain and vomiting.
Endocrine: Negative. Negative for cold intolerance.
Genitourinary: Negative for dysuria, flank pain and urgency.
Musculoskeletal: Negative for back pain, gait problem, neck pain and neck stiffness.
Skin: Negative for rash.
Allergic/Immunologic: Negative. Negative for immunocompromised state.
Neurological: positive for imbalance
Psychiatric/Behavioral: Negative for behavioral problems, confusion and hallucinations.
General: Well developed. In no acute distress.
Cardio: Regular rate and rhythm without murmur. Extremities are without cyanosis or edema.
Neuro:
Mental Status: Alert, oriented to person, place, and date. Normal attention and recall. Good fund of knowledge. Follows complex requests across the midline. Comprehension, naming, and repetition intact.
Cranial Nerves: . Pupils are equally round and reactive to light. EOMs full. Visual rivera full to confrontation. No ptosis. No nystagmus. V1-V3 intact to light touch and pinprick bilaterally, symmetric. Face symmetric. Normal hearing AU.
The palate elevated well. SCMs and traps 5/5. Tongue midline. No dysarthria.
Motor: Increased motor tone in the right wrist with augmentation. No pronator or arm drift. Strength 5/5 throughout. No clonus.
Reflexes: Limited exam due to position, inability to relax. No clonus bilateral
Sensory: Preserved vibration at the toes
Coordination: No dysmetria or tremor.
Gait: Limited exam due to telehealth wires normal stance, difficulty standing on the right foot
Assessment and Plan:
I. Subacute R MCA/L LOUIE/COIN MACHINE SUPERVISOR stroke(11/2023), R M2 focal dissection/ pseudoaneurysm
II. Mild right donita parkinsonism
III. 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
-Fall precautions
-PT
-Please obtain brain MRI without odalis
-Please check ua tox, PTH, thiamine level
-Hold Eliquis until brain MRI is completed to rule out ICH
-Please obtain medical record from [facility]
-SCDs/TEDs
I personally reviewed all radiology and labs along with past medical records pertinent to current medical problems. Total time spent in patient care is 60 minutes.
Thank you for allowing us to participate in the care of this patient. We will continue to follow. Please do not hesitate to contact us with any questions or concerns.
Subjective/Objective
Subjective Data
Date of Service: January 04, 2024
Objective Data
Vital Signs
Temp Pulse Resp BP Pulse Ox
36.7 C 66 12 106/69 91
01/04/24 11:42 01/04/24 14:15 01/04/24 12:00 01/04/24 13:08 01/04/24 13:30
Lab Results
01/04/24 12:55
01/04/24 12:55
Sodium 142 mmol/L (135-145) 01/04/24 12:55
Potassium 4.2 mmol/L (3.5-5.1) 01/04/24 12:55
BUN 17 mg/dl (7-17) 01/04/24 12:55
Glucose 83 mg/dl (70-99) 01/04/24 12:55
Calcium 9.3 mg/dl (8.4-10.2) 01/04/24 12:55
Patient Allergies
lisinopril Allergy (Verified 01/04/24 11:44)
Itching
Medications
-
Home Medications
�Medication �Instructions �Recorded
furosemide 20 mg tablet 20 mg PO DAILY Fluid 12/08/23
Retention/Swelling
ymtttikiacd-sbf-ezwvpmrbi-vitC 1 cap PO BID Supplement 12/08/23
capsule (Glucosamine Complex-MSM
capsule)
losartan 50 mg tablet 50 mg PO HS Blood Pressure 12/08/23
rosuvastatin 40 mg tablet 40 mg PO HS High Cholesterol 12/08/23
tetrahydrozoline 0.05 % eye drops 1 drp BOTH EYES QIDPRN PRN dry eyes 12/08/23
(Visine)
apixaban 5 mg tablet (Eliquis) 5 mg PO BID #60 tabs 12/11/23
blood sugar diagnostic (Contour #100 ea 12/11/23
Next Test Strips)
insulin aspart U-100 100 unit/mL 10 unit (0.1 mL) SC AC #5 ea 12/11/23
(3 mL) subcutaneous pen (Novolog
FlexPen U-100 Insulin aspart)
insulin glargine 100 unit/mL (3 22 unit (0.22 mL) SC HS #5 ea 12/11/23
mL) subcutaneous pen (Basaglar
KwikPen U-100 Insulin)
lancets (Microlet Lancet) #100 ea 12/11/23
metformin 1,000 mg tablet 1,000 mg PO BID@0800,1700 #120 tabs 12/11/23
metoprolol succinate 25 mg 25 mg PO DAILY #30 tabs 12/11/23
tablet,extended release 24 hr
pantoprazole 40 mg tablet,delayed 40 mg PO DAILY #30 tabs 12/11/23
release (Protonix)
pen needle, diabetic 32 gauge x #200 ea 12/11/23
' (BD Ultra-Fine Yandy Pen
Needle)
Vital Signs and Labs
-
Vital Signs and Labs:
Vital Signs
Temp Pulse Resp BP Pulse Ox
36.7 C 73 12 109/61 91
01/04/24 11:42 01/04/24 14:45 01/04/24 12:00 01/04/24 14:17 01/04/24 13:30
Lab Results
01/04/24 12:55
01/04/24 12:55
Sodium 142 mmol/L (135-145) 01/04/24 12:55
Potassium 4.2 mmol/L (3.5-5.1) 01/04/24 12:55
BUN 17 mg/dl (7-17) 01/04/24 12:55
Glucose 83 mg/dl (70-99) 01/04/24 12:55
Calcium 9.3 mg/dl (8.4-10.2) 01/04/24 12:55
Home Medications
-
Home Medications
furosemide 20 mg tablet 20 mg PO DAILY Fluid Retention/Swelling 12/08/23
xjgjffxsdqb-zxb-evwltyicc-vitC capsule (Glucosamine Complex-MSM capsule) 1 cap PO BID Supplement 12/08/23
losartan 50 mg tablet 50 mg PO HS Blood Pressure 12/08/23
rosuvastatin 40 mg tablet 40 mg PO HS High Cholesterol 12/08/23
tetrahydrozoline 0.05 % eye drops (Visine) 1 drp BOTH EYES QIDPRN PRN dry eyes 12/08/23
apixaban 5 mg tablet (Eliquis) 5 mg PO BID #60 tabs 12/11/23
blood sugar diagnostic (Contour Next Test Strips) #100 ea 12/11/23
insulin aspart U-100 100 unit/mL (3 mL) subcutaneous pen (Novolog FlexPen U-100 Insulin aspart) 10 unit (0.1 mL) SC AC #5 ea 12/11/23
insulin glargine 100 unit/mL (3 mL) subcutaneous pen (Basaglar KwikPen U-100 Insulin) 22 unit (0.22 mL) SC HS #5 ea 12/11/23
lancets (Microlet Lancet) #100 ea 12/11/23
metformin 1,000 mg tablet 1,000 mg PO BID@0800,1700 #120 tabs 12/11/23
metoprolol succinate 25 mg tablet,extended release 24 hr 25 mg PO DAILY #30 tabs 12/11/23
pantoprazole 40 mg tablet,delayed release (Protonix) 40 mg PO DAILY #30 tabs 12/11/23
pen needle, diabetic 32 gauge x 5/32' (BD Ultra-Fine Yandy Pen Needle) #200 ea 12/11/23
[2024-01-04 15:00] VITALS: BP 121/73
[2024-01-04 18:44] VITALS: BP 116/75
== END 2024-01-04 19:42 | disposition left against medical advice (07) ==
LOC: EMR 11:39
PROVIDERS: Emergency Medicine; EMERGENCY PHYSICIAN Student in an Organized Health Care Education/Training Program; FAMILY PHYSICIAN Internal Medicine; OTHER PHYSICIAN Psychiatry & Neurology Neurology
DX: I63.9 Cerebral infarction, unspecified (principal); I10 Essential (primary) hypertension; E78.00 Pure hypercholesterolemia, unspecified; E11.40 Type 2 diabetes mellitus with diabetic neuropathy, unspecified; I48.91 Unspecified atrial fibrillation; Z79.01 Long term (current) use of anticoagulants; Z87.891 Personal history of nicotine dependence; Z79.899 Other long term (current) drug therapy; Z79.84 Long term (current) use of oral hypoglycemic drugs; Z53.29 Procedure and treatment not carried out because of patient's decision for other reasons
CPT/HCPCS: 99284; 70450; 70551; 80053; 82962; 84484; 85027; 93005

== ENCOUNTER → 2024-02-23 10:00 | Outpatient (REF) | payer OTHER, SELFPAY | LOC: RAD 10:00 | PROVIDERS: ATTENDING PHYSICIAN Internal Medicine Interventional Cardiology; FAMILY PHYSICIAN Internal Medicine | DX: Z86.73 Personal history of transient ischemic attack (TIA), and cerebral infarction without residual deficits (principal); I51.7 Cardiomegaly; I21.4 Non-ST elevation (NSTEMI) myocardial infarction; R94.39 Abnormal result of other cardiovascular function study | CPT/HCPCS: 75574; Q9967 ==

== ENCOUNTER → 2024-03-16 08:41 | Outpatient (REF) | payer OTHER, SELFPAY | LOC: PAVMRI 08:41 | PROVIDERS: ATTENDING PHYSICIAN Nurse Practitioner; FAMILY PHYSICIAN Internal Medicine | DX: I51.7 Cardiomegaly (principal); Z86.73 Personal history of transient ischemic attack (TIA), and cerebral infarction without residual deficits; I48.0 Paroxysmal atrial fibrillation; E78.49 Other hyperlipidemia; I21.4 Non-ST elevation (NSTEMI) myocardial infarction | CPT/HCPCS: 75561; 75565; A9585 ==

== ENCOUNTER 2024-03-23 10:17 | Day surgery (SDC) | payer OTHER, SELFPAY ==
[2024-03-23] VITALS (10 sets, daily range): BP systolic 95–136; BP diastolic 66–75; BMI 40.0
[2024-03-23 11:18] LABS: Glucose - Point of Care 110 mg/dl (70-99)
[2024-03-23 13:00] LABS: ACT-LR - POC 271 Seconds (116-155)
[2024-03-23 13:11] LABS: ACT-LR - POC 329 Seconds (116-155)
[2024-03-23 13:29] LABS: ACT-LR - POC 311 Seconds (116-155)
--- NOTE | 2024-03-23 14:04 | ITS.CL.CATH ---
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
Cardiac Catheterization
Procedure Report:
LEFT HEART CATHETERIZATION AND CORONARY INTERVENTION
Date of Procedure: March 23, 2024
Referring: Shabana Brooks
PROCEDURES:
1. Left heart catheterization, coronary angiogram.
2. Ultrasound-guided access.
3. Successful percutaneous coronary artery intervention of a heavily calcified 70 to 80% hazy proximal LAD stenosis with one 3.0 x 15 mm Medtronic [place] drug-eluting stent after IV L shockwave with a 3.5 x 12 mm shockwave balloon, postdilated using
IVUS guidance with a 3.5 x 12 mm NC balloon at 18 connor with an excellent angiographic and IVUS based result.
4. IVL shockwave.
4. Intravascular ultrasound (IVUS)
INDICATION: Abnormal coronary CT angiogram and PET stress suggestive of LAD territory ischemia in setting of ongoing dyspnea on exertion.
ACCESS:
1. Right radial artery, 6 Russian sheath, under ultrasound guidance. Given significant right subclavian artery tortuosity and suggestion of a bovine arch, this access was aborted.
2. Right common femoral artery, 6 Russian sheath, under ultrasound guidance using a micropuncture kit
Ultrasound was utilized for vascular access. The radial artery was visualized under ultrasound, and the vessel was patent and pulsatile. An image was stored permanently in the patient's medical record. Under direct ultrasound guidance, a 6 Russian
sheath was inserted into the artery using a micropuncture kit through a modified Seldinger technique.
HEMODYNAMICS : (mmHg)
AO (s/d) : 137/72
LV (s/d) : 139/21
LVEDP : 30
CORONARY FINDINGS
DOMINANCE: Right
LEFT MAIN: The left main artery is a large-caliber vessel which gives rise to the left into descending artery and the left circumflex artery. There is mild distal tapering.
LEFT ANTERIOR DESCENDING: The left anterior descending artery is a large-caliber vessel which gives rise to 1 major diagonal branch as it courses to the anterior interventricular groove towards the apex. Proximal LAD has a hazy calcified 70 to 80%
stenosis just proximal to the takeoff of D1. Mid to distal LAD has diffuse mild to moderate atherosclerotic plaque. Decision was made to proceed with intervention to proximal LAD given ongoing symptoms in the setting of a abnormal PET stress CT
showing reversible ischemia in the LAD territory. See details below regarding intervention.
CIRCUMFLEX: The left circumflex artery is a medium to large caliber vessel which gives rise to 2 major obtuse marginal branches. Beyond the OM branches there is diffuse moderate to severe atherosclerotic plaque proximal to a small left
posterolateral branch. Otherwise there is mild diffuse atherosclerotic plaque.
RIGHT CORONARY ARTERY: The right coronary artery is a medium caliber, dominant vessel which gives rise to RPDA and RPL branches. There is 30-40% tubular stenosis in proximal RCA. Faint right to left collaterals are noted.
CORONARY INTERVENTION: Decision was made to proceed with PCI to mid LAD given hazy appearance in setting of LAD territory ischemia noted on PET stress CT. Additional heparin was given to maintain a therapeutic ACT through out the case. The left
coronary artery was selectively engaged using a 6Fr. EBU 3.75 guide catheter. A 190 cm 0.014' runthrough wire was used and successfully navigated across mid LAD stenosis into distal LAD. The lesion was pre-dilated using a 3.0x12mm semi-compliant
balloon. Despite balloon expansion, there was persistent hazy calcified appearance. At this time we decided to perform IVUS to assess degree of calcification to ensure that the stent would expand well. We inserted a [place] eye and upon
IVUS assessment, 270 degree of calcified plaque was noted at the area of the lesion. Given significant calcification, decision was made to proceed with IV L shockwave at the site to allow for full stent expansion. 6 cycles of treatments of IV L
shockwave were completed in the proximal LAD which the patient tolerated well. A 3.5 x 12 mm shockwave IV L balloon was utilized. The lesion was then stented using a 3.0 x 15 mm Medtronic Shen drug-eluting stent, postdilated using IVUS guidance
with a 3.5 x 12 mm NC balloon at 18 connor with an excellent angiographic and IVUS based result. No evidence of proximal or distal stent edge dissections were noted with good apposition of the stent which was well-expanded. Patient tolerated the
procedure well with no acute complications. She was loaded with 600 mg of Plavix at the end of the case.
SEDATION: 114 minutes of procedural sedation was utilized. An independent nuclear medicine medical director was present to assist with and help manage the patient's level of consciousness and physiologic status.
RADIATION SUMMARY: Fluoro Time (min): 13.1, Dose (mGy): 1714, DAP (Gy.cm2) : 112.5
Closure Device:
1. 6 Russian Angio-Seal over the right common femoral artery with successful hemostasis.
2. Vascular band over the right radial artery.
CONCLUSIONS
1. Successful percutaneous coronary artery intervention of a heavily calcified 70 to 80% hazy proximal LAD stenosis with one 3.0 x 15 mm Medtronic Shen drug-eluting stent after IV L shockwave with a 3.5 x 12 mm shockwave balloon, postdilated using
IVUS guidance with a 3.5 x 12 mm NC balloon at 18 connor with an excellent angiographic and IVUS based result.
2. Significantly elevated LVEDP at 30 mmHg.
RECOMMENDATIONS
1. Aspirin 81mg daily, Plavix 75mg and eliquis 5mg bid (starting tomorrow as long as no groin issues) for one week, then stop aspirin with plan to continue eliquis 5mg bid and plavix 75 daily. High intensity statin and BB as tolerated.
2. Aggressive management of CV risk factors.
3. Bed rest per protocol. Wean radial band per protocol.
4. Referral for outpatient cardiac rehab.
Copy to: Shabana Brooks, and Lisa Cruz
Peg Daigle MD, [facility], [facility]
[2024-03-23 14:45] LABS: Glucose - Point of Care 78 mg/dl (70-99)
[2024-03-23] MEDS: LASIX 40 MG IV (15:39)
[2024-03-23] MEDS: NOVOLOG vial 10 UNITS SC (16:31)
== END 2024-03-23 19:15 | disposition home or self-care (01) ==
LOC: CATH 10:17
PROVIDERS: ATTENDING PHYSICIAN Internal Medicine Interventional Cardiology; FAMILY PHYSICIAN Internal Medicine; OTHER PHYSICIAN Internal Medicine Cardiovascular Disease
DX: I25.10 Atherosclerotic heart disease of native coronary artery without angina pectoris (principal); Z95.5 Presence of coronary angioplasty implant and graft; I25.84 Coronary atherosclerosis due to calcified coronary lesion; Z79.899 Other long term (current) drug therapy; E11.9 Type 2 diabetes mellitus without complications; I48.0 Paroxysmal atrial fibrillation; E78.5 Hyperlipidemia, unspecified; I45.81 Long QT syndrome; Z79.82 Long term (current) use of aspirin; Z79.02 Long term (current) use of antithrombotics/antiplatelets; Z79.4 Long term (current) use of insulin; Z79.84 Long term (current) use of oral hypoglycemic drugs; Z79.85 Long-term (current) use of injectable non-insulin antidiabetic drugs
CPT/HCPCS: 99152; 99153; 92978; 92972; 76937; 82962; 85347; 93005; 93458; C1725; C1753; C1760; C1761; C1769; C1874; C1894; C9600; Q9967

== ENCOUNTER 2024-06-06 07:59 | Inpatient (IN) | payer OTHER, SELFPAY ==
[2024-06-02 21:56] VITALS: BP 120/69
[2024-06-02 22:36] LABS: % Basophils 0.1 % (0-2); % Eosinophils 0.3 % (0-6); % Immature Granulocytes 0.7 % (0-0.5); % Lymphocytes 33.5 % (20.5-51.1); % Monocytes 12.5 % (1.7-9.3); % Neutrophils 52.9 % (42.2-75.2); Absolute Immature Granulocytes 0.1 10^3/uL (0-0.05); Absolute Lymphocytes 2.4 10^3/uL (1.2-3.4); Absolute Monocytes 0.9 10^3/uL (0.1-0.6); Absolute Neutrophils 3.8 10^3/uL (1.4-6.5); Hematocrit 41.1 % (37.0-47.0); Hemoglobin 13.5 g/dL (12.0-16.0); Mean Corp Hgb Conc. 32.8 g/dL (33.0-37.0); Mean Corpuscular Hgb 27.8 pg (27.0-31.0); Mean Corpuscular Volume 84.6 fL (81.0-99.0); Mean Platelet Volume 10.4 fL (7.4-10.4); Nucleated Red Blood Cells % 0 %; Platelet Count 216 10^3/uL (130-400); Red Blood Cell Count 4.86 10^6/uL (4.20-5.40); Red Cell Dist. Width 17.1 % (11.5-14.5); White Blood Cell Count 7.1 10^3/uL (4.8-10.8)
[2024-06-02 22:53] LABS: ALT (SGPT) 30 U/L (0-35); AST (SGOT) 35 U/L (14-36); Albumin 4.5 g/dl (3.5-5.0); Alkaline Phosphatase 62 U/L (38-126); Blood Urea Nitrogen 25 mg/dl (7-17); Carbon Dioxide 26 mmol/L (22-30); Glucose 78 mg/dl (70-99); Total Bilirubin 0.8 mg/dl (0.2-1.3); Total Protein 7.4 g/dl (6.3-8.2); eGFR 37.26
[2024-06-02 23:03] LABS: Chloride 99 mmol/L (98-107); Potassium 3.6 mmol/L (3.5-5.1); Sodium 142 mmol/L (135-145)
[2024-06-03] VITALS (45 sets, daily range): BP systolic 57–176; BP diastolic 38–117; BMI 39.1; BMI 37.9
--- NOTE | 2024-06-03 02:30 | ED.CVA ---
History of Present Illness
General
Chief Complaint: CVA/TIA Symptoms
Source: patient
Exam Limitations: none
Time Seen by Provider: 06/03/24 00:14
Nursing documentation reviewed up to this point in time: agreed with
Onset of Stroke Symptoms
Onset of symptoms known: Yes
Date of onset of symptoms: 06/01/24
Time pt last seen normal is known: No
History of Present Illness
History of Present Illness:
68-year-old female past medical history of paroxysmal A-fib hypertension hyperlipidemia currently on Eliquis and Plavix presenting to the emergency department today with concerns of left-sided weakness mainly to her arm as well as balance issues and
some intermittent speech problems over the past day and a half has seemingly resolved this evening. Has had strokes in the past felt somewhat similar. Denies any chest pain shortness of breath or recent illness. No fevers.
Past History
Past History
ED Past Medical History: Arrthythmia (Atrial fibrillation), CVA (Ischemic stroke September 2022), HTN, Hypercholesterolemia, IDDM and Other (Neuropathy, obesity)
Social History
Tobacco: Former smoker
Alcohol: Occasional
Living: with roommate
Family History
Family History: Other (Reviewed and noncontributory)
Review of Systems
Review of Systems
Allergies reviewed?: Yes
All Other Systems: ROS reviewed and negative except as documented in HPI and ROS
Phy Exam
Physical Exam
Physical Exam:
GENERAL: Alert , in no apparent distress
EYE: pupils equal and reactive
NECK: Supple, no significant adenopathy.
ENT: o/p clr, mmm.
CARDIAC: Regular rate and rhythm .
LUNGS: Clear breath sounds bilaterally, no acute respiratory distress, no wheezes/rales/rhonchi
ABDOMEN: Soft, without focal tenderness, no r/g, no cvat
NEUROLOGICAL: Alert and oriented, no focal neuro deficits 5 out of 5 upper and lower extremity strength normal sensation with palpating bilaterally normal finger-nose and [id number] no pronator drift.
SKIN: Warm and dry, skin intact.
MUSCULOSKELETAL: No edema, well perfused.
PSYCH: Normal and appropriate interaction.
Course
Orders/Labs/Results
Orders:
Orders
06/02/24 22:00
CT Head W/o Iv Contrast Urgent
Comment:
Reason For Exam: TIA/CVA Symptoms
06/02/24 22:01
EKG [Electrocardiogram (*1)] Urgent
Reason for Study: Vertigo / Dizzy
EKG- Treatment ONCE
06/02/24 22:23
CBC/With Diff [Complete Blood Count/With Diff] Urgent
CMP [Comprehensive Metabolic Panel] Urgent
Abnormal Lab Results
06/02/24
22:23
MCHC 32.8 L g/dL
(33.0-37.0)
RDW 17.1 H %
(11.5-14.5)
Abs Immat Gran (auto) 0.1 H 10^3/uL
(0-0.05)
Absolute Monos (auto) 0.9 H 10^3/uL
(0.1-0.6)
Immature Gran % 0.7 H %
(0-0.5)
Monocytes % 12.5 H %
(1.7-9.3)
BUN 25 H mg/dl
(7-17)
Creatinine 1.5 H mg/dL
(0.6-1.0)
Calcium 11.0 H mg/dl
(8.4-10.2)
06/02/24 22:23
06/02/24 22:23
Vital Signs
Initial and Last Documented VS:
Initial Vital Signs
Temp Pulse Resp BP Pulse Ox
97.9 F 78 15 120/69 99
06/02/24 21:56 06/02/24 21:56 06/02/24 21:56 06/02/24 21:56 06/02/24 21:56
Last Documented Vital Signs
Temp Pulse Resp BP Pulse Ox
97.9 F 83 15 102/69 98
06/02/24 21:56 06/03/24 00:35 06/02/24 21:56 06/03/24 00:35 06/03/24 00:35
MDM/Problems Addressed
MDM/Problems Addressed:
5-year-old female presenting to the emergency department today with concerns of weakness to the left arm balance issues over the past day and a half. Symptoms resolved prior to arrival here. On arrival vital signs are normal patient with normal
neurologic evaluation. Concern for potential TIA. Plan for admission for neuroassessment.
*Critical Care Note
Total Time (30-74mins, 75-104mins- exclusive of procedures): Not Applicable
ED Attending Note
-
Portions of this chart may have been created with voice recognition software.� Occasional wrong word or��sound alike� substitutions may have occurred due to the inherent limitations of voice recognition software.
Discharge Plan
Departure
Patient Disposition: Admit
Date of Disposition: 06/03/24
Time of Disposition: 02:32
Admit to: Telemetry
Admit to doctor: Ligia
Presentation/result/management discussed w/ accepting MD/DO: Hospitalist
Patient with high blood pressure during this ER visit?: No
Condition: Good
Covid-19: Not Applicable
Discharge Problem:
Left arm weakness, Balance problem
Prescriptions:
No Action
losartan 50 mg Tablet
25 mg PO HS
tetrahydrozoline [Visine] 0.05 % Drops
1 drp BOTH EYES QIDPRN PRN (Reason: dry eyes)
rosuvastatin 40 mg Tablet
40 mg PO HS
Glucosamine Complex-MSM Capsule
1 cap PO BID
insulin aspart U-100 [Novolog FlexPen U-100 Insulin] 100 unit/mL (3 mL) Insulin Pen
10 unit SC AC Qty: 5 3RF
insulin glargine [Basaglar KwikPen U-100 Insulin] 100 unit/mL (3 mL) Insulin Pen
22 unit SC HS Qty: 5 4RF
Rx Instructions:
03/22/24-patient took 11 units prior to bedtime for procedure in am
(DME) pen needle, diabetic [BD Ultra-Fine Yandy Pen Needle] 32 gauge x ' Needle
Qty: 200 0RF
Rx Instructions:
As Directed
Eliquis 5 mg tablet
5 mg PO BID Qty: 60 0RF
pantoprazole [Protonix] 40 mg tablet,delayed release (DR/EC)
40 mg PO DAILY Qty: 30 1RF
(DME) Contour Next Test Strips Strip
Qty: 100 0RF
Rx Instructions:
Pt Testing 3 times a day
(DME) lancets [Microlet Lancet] Misc
Qty: 100 0RF
Rx Instructions:
Pt testing 3 times a day
meclizine 12.5 mg tablet
12.5 mg PO TID PRN (Reason: dizziness) Qty: 15 0RF
multivitamin Tablet
1 tab PO DAILY
amlodipine 2.5 mg Tablet
2.5 mg PO DAILY
potassium chloride 10 mEq Tablet Extended Release
10 meq PO SUTUTH
Rx Instructions:
Every other day
aspirin 81 mg Tablet
81 mg PO DAILY
biotin 500 mcg Capsule
1 mg PO DAILY
escitalopram oxalate 10 mg Tablet
10 mg PO DAILY
Ozempic 0.25 mg or 0.5 mg(2 mg/1.5 mL) Pen Injector
0.25 mg SC QWEEK
Rx Instructions:
for 4 weeks
metformin 1,000 mg tablet
500 mg PO BID@0800,1700
Patient Comments:
pt thought was 500 mg not 1000
metoprolol succinate 25 mg tablet extended release 24 hr
50 mg PO DAILY
clopidogrel 75 mg tablet
75 mg PO DAILY Qty: 90 10RF
furosemide 20 mg Tablet
40 mg PO BID Qty: 0 0RF
Referrals:
Desirae Ty DO [Family Provider] -
Interventions
Interventions:
*Risk Screen - Suicide Last Done: 06/02/24 21:56
*General Assessment Last Done: 06/02/24 21:56
*Neglect/Abuse Screening Last Done: 06/02/24 21:56
ED- Neurological Assessment Last Done: 06/03/24 00:29
Discharge Date and Time
Print Language: GHANAIAN
--- NOTE | 2024-06-03 05:20 | HPS.HSE ---
Family Physician
-
Family Physician: Desirae Ty
Chief Complaint
-
Transient left upper extremity weakness
History of Present Illness
This is a 68-year-old female with past medical history significant for atrial fibrillation on anticoagulation, CAD status post stenting with most recent stent placed in March and currently on Plavix, ROSE on CPAP CHF insulin-dependent diabetes
presenting to the Emergency Department with an episode of left-sided weakness.
Patient reported that she has been feeling coordination issues plan left-sided weakness for around 1 year of days. She feels the weakness is mostly in the left upper extremity. She denies any numbness. She denies any tingling. She reports
history of headaches but denies migraines. She denies any vision changes. She denies any facial droop or speech difficulties or confusion. She has no urinary symptoms. She denies fevers or chills. She denies any cough cold or flulike symptoms.
By the time the patient is being admitted she reported that her symptoms have mostly resolved. She no longer feels that there is any weakness in left upper extremity or left lower extremity.
In the Emergency Department blood pressure was 102/69 with a pulse of 83 and she was satting 98% on room air. ECG shows normal sinus rhythm at a rate of 69 QTc was slightly elevated at 546. She has known lateral T wave inversion.
CT of the head was negative.
CBC was unremarkable with normal WBCs, hemoglobin 13.5 and platelet 216. Electrolytes were normal. Creatinine was slightly elevated at 1.5 compared to baseline a year ago or from 1.2. Glucose was 78.
Medical History
Past Medical History
Past Medical History: Reports CAD (03/2024 - percutaneous coronary artery intervention of a heavily calcified 70 to 80% hazy proximal LAD stenosis with one 3.0 x 15 mm Medtronic Shen drug-eluting stent ) and Other
Additional Past Medical History:
CVA September 2022 embolic secondary to A-fib
A-fib on Eliquis resulting in blood loss of unclear etiology which was stopped a loop recorder was placed at [facility],
history of left orbital floor fracture with plate repair May 2023 with chronic numbness from left orbit down to chin
DM2
HTN
daily alcohol use
obesity.
Past Surgical History: Reports Other
Additional Past Surgical History:
history of left orbital floor fracture with plate repair May 2023
Tonsillectomy
Hysterectomy
Left eye cataract extraction with lens
Social History
Tobacco: Non-smoker
Alcohol: Daily (1 glass wine or vodka tonic)
Drug: None
Personal:
Living: With Family
Employment: Employed
Family History
Family History: Other (Mother age 64 multiple myeloma, father lung cancer, 1 sister 1 brother living hypertension)
Allergies / Home Medications
Allergies reflects when Allergies were last updated in [employer]
Home Medications with original date entered in [employer]
Allergy/Medication List:
Allergies
Allergy/AdvReac Type Severity Reaction Status Date / Time
lisinopril Allergy Itching Verified 01/04/24 11:44
Home Medications
huixlhaxnth-qic-zwcqcrecc-vitC capsule (Glucosamine Complex-MSM capsule) 1 cap PO BID Supplement 12/08/23
losartan 50 mg tablet 25 mg PO HS Blood Pressure 12/08/23
rosuvastatin 40 mg tablet 40 mg PO HS High Cholesterol 12/08/23
tetrahydrozoline 0.05 % eye drops (Visine) 1 drp BOTH EYES QIDPRN PRN dry eyes 12/08/23
apixaban 5 mg tablet (Eliquis) 5 mg PO BID #60 tabs 12/11/23
blood sugar diagnostic (Contour Next Test Strips) #100 ea 12/11/23
insulin aspart U-100 100 unit/mL (3 mL) subcutaneous pen (Novolog FlexPen U-100 Insulin aspart) 10 unit (0.1 mL) SC AC #5 ea 12/11/23
insulin glargine 100 unit/mL (3 mL) subcutaneous pen (Basaglar KwikPen U-100 Insulin) 22 unit (0.22 mL) SC HS #5 ea 12/11/23
lancets (Microlet Lancet) #100 ea 12/11/23
pantoprazole 40 mg tablet,delayed release (Protonix) 40 mg PO DAILY #30 tabs 12/11/23
pen needle, diabetic 32 gauge x /32' (BD Ultra-Fine Yandy Pen Needle) #200 ea 12/11/23
meclizine 12.5 mg tablet 12.5 mg PO TID PRN dizziness #15 tabs 01/04/24
amlodipine 2.5 mg tablet 2.5 mg PO DAILY 03/23/24
aspirin 81 mg tablet 81 mg PO DAILY 03/23/24
biotin 500 mcg capsule 1 mg PO DAILY 03/23/24
clopidogrel 75 mg tablet 75 mg PO DAILY #90 tabs 03/23/24
escitalopram oxalate 10 mg tablet 10 mg PO DAILY 03/23/24
furosemide 20 mg tablet 40 mg (2 x 20 mg) PO BID Fluid Retention/Swelling #0 tabs 03/23/24
metformin 1,000 mg tablet 500 mg PO BID@0800,1700 03/23/24
metoprolol succinate 25 mg tablet,extended release 24 hr 50 mg PO DAILY 03/23/24
multivitamin 1 tab PO DAILY 03/23/24
potassium chloride 10 mEq tablet,extended release 10 meq PO SUTUTH 03/23/24
semaglutide 0.25 mg or 0.5 mg (2 mg/1.5 mL) subcutaneous pen injector (Ozempic) 0.25 mg SC QWEEK 03/23/24
Review of Systems
-
History Source: Patient
Constitutional: Reports No Symptoms
EENT: Reports No Symptoms
Respiratory: Reports No Symptoms
Cardiac: Reports No Symptoms
Abdomen/GI: Reports No Symptoms
: Reports No Symptoms
Musculoskeletal: Reports No Symptoms
Skin: Reports No Symptoms
Neurological: Reports Weakness
Endocrine: Reports No Symptoms
Hematologic/Lymphatic: Reports No Symptoms
Psych: Reports No Symptoms
Physical Exam
Vital Signs
Vital Signs
Temp Pulse Resp BP Pulse Ox
97.9 F 83 18 102/69 98
06/02/24 21:56 06/03/24 00:35 06/03/24 02:37 06/03/24 00:35 06/03/24 00:35
Physical Exam
General: Well Developed, Well Nourished, Comfortable and Conversant
HEENT: NormoCephalic, Anicteric, Moist mucous membranes and Atraumatic
Respiratory: Clear
Cardiac: S1/S2 and Regular Rhythm
Breast: Deferred by me
GI: Soft, Non Tender and Normal Bowel Sounds
Rectal: Deferred by Provider
Genito-urinary: Deferred by me
Musculoskeletal: No Clubbing, No Cyanosis and No Edema
Skin: Warm
Neuro: Awake, AO x 3 and Nonfocal/grossly intact
Psych: Calm
Laboratory Results
-
06/02/24 22:23
06/02/24 22:23
Laboratory Results
Total Bilirubin 0.8 mg/dl (0.2-1.3) 06/02/24 22:23
AST 35 U/L (14-36) 06/02/24 22:23
ALT 30 U/L (0-35) 06/02/24 22:23
Alkaline Phosphatase 62 U/L (38-126) 06/02/24 22:23
Data Reviewed
-
CT Scan: Report Reviewed by me
Medical Tests (Nuc Med, Echo, EKG etc): Image Personally Visualized and interpreted
Lab Data: Labs Reviewed by me
Old Records: Reviewed
Impression/Plan
-
IMPRESSION:
68-year-old female with multiple comorbidities including CAD status post recent stent in March, atrial fibrillation on anticoagulation with Eliquis, hypertension, CHF with preserved EF, GERD, ROSE on CPAP, history of CVA presenting to the
Emergency Department with approximately 1 day of left-sided weakness mostly affecting the left upper extremity. She reports that the weakness has now resolved. CT of her head is negative. She has no other focal neurological deficits. She has
been compliant with her medications including the anticoagulation Eliquis and Plavix for her PCI. She is hemodynamically stable with blood pressure slightly low at 102/70, globin was 13.5 electrolytes were normal. She has mild elevation in
creatinine to 1.5. She denies any urinary symptoms.
PLAN:
1. TIA -transient left lower upper extremity and lower extremity weakness. Now completely resolved. NIHSS equals 0. She is already on appropriate medications and has no evidence of bleeding. Can confirm the TIA with an MRI but will not change
management unless there is a massive stroke seen on the MRI which will not be consistent with current neurological exam.
- admit to telemetry observation
- neurochecks q 6
- orthostatic vs
- mri
- continue plavix and eliquis for now
- continue her statin
- pt eval
2. DM II
- lantus 22 hs
- aspart 12 units tidac at home, continue with 8 units here
- sliding scale insulin
- metformin 1000 bid
3. CAD - No CP
- continue plavix, eliquis and statin
- continue metoprolol succinate 50 daily
4. AFIB - NSR
- apixaban
- metoprolol
5. ROSE
- oxygen prn
DVT PPX - on apixaban
Code Status - Full Code
[2024-06-03 05:46] LABS: Glucose - Point of Care 118 mg/dl (70-99)
[2024-06-03] MEDS: PROTONIX 40 MG PO (09:10)
[2024-06-03] MEDS: ELIQUIS 5 MG PO (09:19)
[2024-06-03] MEDS: PLAVIX 75 MG PO (09:19)
[2024-06-03] MEDS: NSS 500 IV ×2 (09:20→14:04)
[2024-06-03 09:21] LABS: Glucose - Point of Care 157 mg/dl (70-99)
[2024-06-03] MEDS: GLUCOPHAGE 500 MG PO ×2 (09:22→18:35)
[2024-06-03] MEDS: NOVOLOG FLEXPEN-LOW RESISTANCE 1 UNITS SC (09:22)
[2024-06-03] MEDS: NOVOLOG FLEXPEN 8 UNITS SC ×3 (09:22→18:39)
--- NOTE | 2024-06-03 10:43 | W.PN.UPDATE ---
Update Note
Progress Note Update
Admitted by Dr. Robledo this am.
Admitted for self-limiting left arm and leg weakness. Now resolved. TIA workup ongoing.
Voices no specific complaints.
Her blood pressure is low and systolic 70s but asymptomatic without dizziness, chest pain or shortness of breath. She says her blood pressure runs low. Known cardiac disease with GDMT medication and Lasix on board. Says she also went on Ozempic
45 weeks ago. At baseline weight to 20 pounds.
Creatinine up. Unclear if its Ozempic related or related to cardiac medication. No extrarenal losses. Hold amlodipine. Continue other GDMT medication with parameters. Will give a fluid bolus and follow.
MRI of the brain pending. Consult neurology for TIA workup.
--- NOTE | 2024-06-03 10:56 | CON.NEURO ---
Consultation
Order
Date of Consultation: 06/03/24
Requesting Provider: Jaylon Louis MD
Reason for Consult: TIA
Neurology Consultation Note.
HPI: This is a 68-year-old RH woman who presents to [facility] on June 02 2024 with transient motor and sensory deficits.
According to the patient she had transient left hand numbness with associated weakness that started around 11 AM yesterday.
This occurred while going down the stairs and holding onto the banister. The weakness was described as the arm 'going down' when attempting to raise it. The duration of this episode is unclear but it was very brief. The patient denies any associated
neck pain radiating down the left arm or any issues with the left leg during these episodes. Ms. Boswell admits to a new dizziness upon standing from a sitting position. The patient denies any current headache, nausea, changes in voice or
swallowing.
Regarding the prior stroke history, the patient mentions that the dizziness from the previous stroke never fully resolved, but she remained independent in ambulation without requiring a cane. The patient reports adherence to her prescribed
medications.
The patient briefly mentioned a transient speech disturbance, describing it as speech not feeling 'right coming out' when speaking with her sister, but it only lasted 'like a second.'
Carmela has a history of paroxysmal A-fib and 2 strokes with the first occurring in September 2022 presenting with transient left hand numbness and difficulties with speaking([facility]) and the second presenting with right facial
sensory deficits(11/2023, [facility]). Ms. Boswell was seen by neurology service in November, for subacute R MCA and questionable L LOUIE/PROPOSAL ANALYST stroke. She was transitioned from DAPT to Eliquis on December 16, 2023
ER VS: 120/69-62/38, 78, afebrile.
EKG: NSR, QTc Int : 546 ms
Brain MRI without gadolinium (June 03, 2024) acute/subacute right moderate and great left MCA territory subcortical infarcts.
CTA head(12/10/2023)-high-grade stenosis within the mid inferior division of the right M2 segment
Labs: Creatinine�1.5, sodium, WBCs�normal,
PMH: PA Fib(off AC due to anemia), R MCA/L LOUIE/?PROPOSAL ANALYST stroke(11/2023), R M2 focal dissection/ pseudoaneurysm, DM(HbA1C 13.5), BMI 39, HTN, DLP, DM, uncontrolled,ROSE, obesity, congenital long QT syndrome
PSH: ILR, tonsillectomy, RYNE, L cataract surgery
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
FH: father-lung cancer, mother-multiple myeloma
All:ACEIs
ROS:Constitutional: Negative. Negative for chills, fever and unexpected weight change.
HENT: Negative for ear pain, hearing loss, tinnitus and trouble swallowing.
Eyes: Negative. Negative for photophobia, pain and visual disturbance.
Respiratory: Negative for cough, choking and shortness of breath.
Cardiovascular: Negative for chest pain, palpitations and leg swelling.
Gastrointestinal: Negative for abdominal pain and vomiting.
Endocrine: Negative. Negative for cold intolerance.
Genitourinary: Negative for dysuria, flank pain and urgency.
Musculoskeletal: Negative for back pain, gait problem, neck pain and neck stiffness.
Skin: Negative for rash.
Allergic/Immunologic: Negative. Negative for immunocompromised state.
Neurological: positive for imbalance, chronic distal paresthesias, transient left arm weakness and numbness
General: Well developed. In no acute distress.
Cardio: Regular rate and rhythm without murmur. Extremities are without cyanosis or edema.
Neuro:
Mental Status: Alert, oriented to person, place, and date. Normal attention and recall. Good fund of knowledge. Follows complex requests across the midline. Comprehension, naming, and repetition intact.
Cranial Nerves: . Pupils are equally round and reactive to light. EOMs full. Visual rivera full to confrontation. No ptosis. No nystagmus. V1-V3 intact to light touch and pinprick bilaterally, symmetric. Face symmetric. Normal hearing AU.
The palate elevated well. SCMs and traps 5/5. Tongue midline. No dysarthria.
Motor: Increased motor tone in the right wrist with augmentation. No pronator or arm drift. Strength 5/5 throughout. No clonus.
Reflexes: Limited exam due to position, inability to relax. No clonus bilateral
Sensory: Preserved vibration at the toes
Coordination: No dysmetria or tremor.
Gait: Limited exam due to telehealth wires normal stance, difficulty standing on the right foot
Assessment and Plan:
I. Subacute R MCA stroke in settings of hypotension
II. 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
III. Uncontrolled DM
IV. PA A-Fib
V. Hypertension
-Fall precautions
-Avoid cerebral hypoperfusion
-Strict glycemic control
-Continue rosuvastatin 40 mg nightly
-Continue aspirin 81 mg once a day Plavix 75 mg once a day
-Hold Eliquis
-SCDs/TEDs
I personally reviewed all radiology and labs along with past medical records pertinent to current medical problems. Total time spent in patient care is 60 minutes.
Thank you for allowing us to participate in the care of this patient. We will continue to follow. Please do not hesitate to contact us with any questions or concerns.
Subjective/Objective
Subjective Data
Date of Service: June 03, 2024
Objective Data
Vital Signs
Temp Pulse Resp BP Pulse Ox
36.6 C 74 15 108/72 97
06/03/24 09:27 06/03/24 10:10 06/03/24 10:10 06/03/24 10:10 06/03/24 09:30
Lab Results
06/02/24 22:23
06/02/24 22:23
Sodium 142 mmol/L (135-145) 06/02/24 22:23
Potassium 3.6 mmol/L (3.5-5.1) 06/02/24 22:23
BUN 25 mg/dl (7-17) H 06/02/24 22:23
Glucose 78 mg/dl (70-99) 06/02/24 22:23
Calcium 11.0 mg/dl (8.4-10.2) H 06/02/24 22:23
Patient Allergies
lisinopril Allergy (Verified 01/04/24 11:44)
Itching
Medications
-
Active Medications
Generic Name Dose Route Start Last Admin
Trade Name Freq PRN Reason Stop Dose Admin
Acetaminophen 650 mg 06/03/24 07:42
Acetaminophen 325 Mg Tablet PO 07/01/24 07:41
Q4HPRN PRN
mild pain/THORPE/temp> 100.4F
Amlodipine Besylate 2.5 mg 06/03/24 08:00 06/03/24 09:09
Amlodipine 2.5 Mg Tablet PO 07/01/24 07:59 Not Given
DAILY KARTIK
Apixaban 5 mg 06/03/24 08:00 06/03/24 09:19
Apixaban (Eliquis) 5 Mg Tablet PO 07/01/24 07:59 5 mg
BID KARTIK Administration
Bisacodyl 10 mg 06/03/24 07:43
Bisacodyl 10 Mg Rectal Suppository RECTAL 07/01/24 07:42
[id number] PRN
constipation
Clopidogrel Bisulfate 75 mg 06/03/24 08:00 06/03/24 09:19
Clopidogrel 75 Mg Tablet PO 07/01/24 07:59 75 mg
DAILY KARTIK Administration
Furosemide 40 mg 06/03/24 08:00 06/03/24 09:09
Furosemide 20 Mg Tablet PO 07/01/24 07:59 Not Given
BID KARTIK
Insulin Aspart 8 units 06/03/24 07:30 06/03/24 09:22
Insulin Aspart (100 Units/Ml) 3 Ml Flexpen SC 07/01/24 07:29 8 units
AC KARTIK Administration
Insulin Aspart 0 units 06/03/24 07:30 06/03/24 09:22
Insulin Aspart Low Resistance 300 Units/3 Ml Pen.Injctr SC 07/01/24 07:29 1 units
AC KARTIK Administration
Protocol
Losartan Potassium 25 mg 06/03/24 22:00
Losartan 25 Mg Tablet PO 07/01/24 21:59
HS KARTIK
Meclizine HCl 12.5 mg 06/03/24 06:49
Meclizine 12.5 Mg Tablet PO 07/01/24 06:48
TID PRN
dizziness
Metformin HCl 500 mg 06/03/24 08:00 06/03/24 09:22
Metformin 500 Mg Regular Release Tablet PO 07/01/24 07:59 500 mg
BID@0800,1700 KARTIK Administration
Metoprolol Succinate 50 mg 06/03/24 08:00 06/03/24 09:09
Metoprolol 25 Mg Extended Release Tablet PO 07/01/24 07:59 Not Given
DAILY KARTIK
Non-Formulary Medication 22 unit 06/03/24 22:00
Insulin Glargine [Basaglar Kwikpen U-100 Insulin] SC 07/01/24 21:59
HS KARTIK
Pantoprazole Sodium 40 mg 06/03/24 08:00 06/03/24 09:10
Pantoprazole 40 Mg Delayed Release Tablet PO 07/01/24 07:59 40 mg
DAILY KARTIK Administration
Polyethylene Glycol 17 grams 06/03/24 07:46
Polyethylene Glycol Powder 17 Grams Packet PO 07/01/24 07:45
DAILYPRN PRN
constipation
Potassium Chloride 10 meq 06/05/24 05:43
Potassium Chloride 10 Meq Extended Release Tablet PO 07/03/24 05:42
SUTUTH KARTIK
Rosuvastatin Calcium 40 mg 06/03/24 22:00
Rosuvastatin (Crestor) 40 Mg Tablet PO 07/01/24 21:59
HS KARTIK
Senna/Docusate Sodium 1 tablet 06/03/24 06:49
Docusate W/Senna (Loyda-Colace) Tablet PO 07/01/24 06:48
BIDPRN PRN
constipation
Sodium Chloride 0 flush 06/03/24 03:00
Sodium Chloride 0.9% (Flush) Syringe IV 07/01/24 02:59
PER PROTOCOL KARTIK
Home Medications
�Medication �Instructions �Recorded
yhbtzsfthea-amb-ibdsdpolq-vitC 1 cap PO BID Supplement 12/08/23
capsule (Glucosamine Complex-MSM
capsule)
losartan 50 mg tablet 25 mg PO HS Blood Pressure 12/08/23
rosuvastatin 40 mg tablet 40 mg PO HS High Cholesterol 12/08/23
pantoprazole 40 mg tablet,delayed 40 mg PO DAILY #30 tabs 12/11/23
release (Protonix)
amlodipine 2.5 mg tablet 2.5 mg PO DAILY 03/23/24
clopidogrel 75 mg tablet 75 mg PO DAILY #90 tabs 03/23/24
escitalopram oxalate 10 mg tablet 10 mg PO DAILY 03/23/24
furosemide 20 mg tablet 40 mg (2 x 20 mg) PO BID Fluid 03/23/24
Retention/Swelling #0 tabs
metoprolol succinate 25 mg 25 mg PO DAILY 03/23/24
tablet,extended release 24 hr
multivitamin 1 tab PO DAILY 03/23/24
potassium chloride 10 mEq 10 meq PO Q48H 03/23/24
tablet,extended release
semaglutide 0.25 mg or 0.5 mg (2 0.5 mg SC TH 03/23/24
mg/1.5 mL) subcutaneous pen
injector (Ozempic)
apixaban 5 mg tablet (Eliquis) 5 mg PO BID 06/03/24
insulin aspart U-100 100 unit/mL 12 sliding scale dose SC AC 06/03/24
(3 mL) subcutaneous pen (Novolog
FlexPen U-100 Insulin aspart)
insulin glargine 100 unit/mL (3 22 unit SC HS 06/03/24
mL) subcutaneous pen (Lantus
Solostar U-100 Insulin)
metformin 500 mg tablet 500 mg PO BID 06/03/24
Vital Signs and Labs
-
Vital Signs and Labs:
Vital Signs
Temp Pulse Resp BP Pulse Ox
36.6 C 74 15 108/72 97
06/03/24 09:27 06/03/24 10:10 06/03/24 10:10 06/03/24 10:10 06/03/24 09:30
Lab Results
06/02/24 22:23
06/02/24 22:23
Sodium 142 mmol/L (135-145) 06/02/24 22:23
Potassium 3.6 mmol/L (3.5-5.1) 06/02/24 22:23
BUN 25 mg/dl (7-17) H 06/02/24 22:23
Glucose 78 mg/dl (70-99) 06/02/24 22:23
Calcium 11.0 mg/dl (8.4-10.2) H 06/02/24 22:23
Medications
-
Medications:
Generic Name Dose Route Start Last Admin
Trade Name Freq PRN Reason Stop Dose Admin
Acetaminophen 650 mg 06/03/24 07:42
Acetaminophen 325 Mg Tablet PO 07/01/24 07:41
Q4HPRN PRN
mild pain/THORPE/temp> 100.4F
Amlodipine Besylate 2.5 mg 06/03/24 08:00 06/03/24 09:09
Amlodipine 2.5 Mg Tablet PO 07/01/24 07:59 Not Given
DAILY KARTIK
Apixaban 5 mg 06/03/24 08:00 06/03/24 09:19
Apixaban (Eliquis) 5 Mg Tablet PO 07/01/24 07:59 5 mg
BID KARTIK Administration
Bisacodyl 10 mg 06/03/24 07:43
Bisacodyl 10 Mg Rectal Suppository RECTAL 07/01/24 07:42
[id number] PRN
constipation
Clopidogrel Bisulfate 75 mg 06/03/24 08:00 06/03/24 09:19
Clopidogrel 75 Mg Tablet PO 07/01/24 07:59 75 mg
DAILY KARTIK Administration
Furosemide 40 mg 06/03/24 08:00 06/03/24 09:09
Furosemide 20 Mg Tablet PO 07/01/24 07:59 Not Given
BID KARTIK
Insulin Aspart 8 units 06/03/24 07:30 06/03/24 09:22
Insulin Aspart (100 Units/Ml) 3 Ml Flexpen SC 07/01/24 07:29 8 units
AC KARTIK Administration
Insulin Aspart 0 units 06/03/24 07:30 06/03/24 09:22
Insulin Aspart Low Resistance 300 Units/3 Ml Pen.Injctr SC 07/01/24 07:29 1 units
AC KARTIK Administration
Protocol
Losartan Potassium 25 mg 06/03/24 22:00
Losartan 25 Mg Tablet PO 07/01/24 21:59
HS KARTIK
Meclizine HCl 12.5 mg 06/03/24 06:49
Meclizine 12.5 Mg Tablet PO 07/01/24 06:48
TID PRN
dizziness
Metformin HCl 500 mg 06/03/24 08:00 06/03/24 09:22
Metformin 500 Mg Regular Release Tablet PO 07/01/24 07:59 500 mg
BID@0800,1700 KARTIK Administration
Metoprolol Succinate 50 mg 06/03/24 08:00 06/03/24 09:09
Metoprolol 25 Mg Extended Release Tablet PO 07/01/24 07:59 Not Given
DAILY KARTIK
Non-Formulary Medication 22 unit 06/03/24 22:00
Insulin Glargine [Basaglar Kwikpen U-100 Insulin] SC 07/01/24 21:59
HS KARTIK
Pantoprazole Sodium 40 mg 06/03/24 08:00 06/03/24 09:10
Pantoprazole 40 Mg Delayed Release Tablet PO 07/01/24 07:59 40 mg
DAILY KARTIK Administration
Polyethylene Glycol 17 grams 06/03/24 07:46
Polyethylene Glycol Powder 17 Grams Packet PO 07/01/24 07:45
DAILYPRN PRN
constipation
Potassium Chloride 10 meq 06/05/24 05:43
Potassium Chloride 10 Meq Extended Release Tablet PO 07/03/24 05:42
SUTUTH KARTIK
Rosuvastatin Calcium 40 mg 06/03/24 22:00
Rosuvastatin (Crestor) 40 Mg Tablet PO 07/01/24 21:59
HS KARTIK
Senna/Docusate Sodium 1 tablet 06/03/24 06:49
Docusate W/Senna (Loyda-Colace) Tablet PO 07/01/24 06:48
BIDPRN PRN
constipation
Sodium Chloride 0 flush 06/03/24 03:00
Sodium Chloride 0.9% (Flush) Syringe IV 07/01/24 02:59
PER PROTOCOL KARTIK
Home Medications
-
Home Medications
pbfiehtshnu-tns-kwjadcadv-vitC capsule (Glucosamine Complex-MSM capsule) 1 cap PO BID Supplement 12/08/23
losartan 50 mg tablet 25 mg PO HS Blood Pressure 12/08/23
rosuvastatin 40 mg tablet 40 mg PO HS High Cholesterol 12/08/23
pantoprazole 40 mg tablet,delayed release (Protonix) 40 mg PO DAILY #30 tabs 12/11/23
amlodipine 2.5 mg tablet 2.5 mg PO DAILY 03/23/24
clopidogrel 75 mg tablet 75 mg PO DAILY #90 tabs 03/23/24
escitalopram oxalate 10 mg tablet 10 mg PO DAILY 03/23/24
furosemide 20 mg tablet 40 mg (2 x 20 mg) PO BID Fluid Retention/Swelling #0 tabs 03/23/24
metoprolol succinate 25 mg tablet,extended release 24 hr 25 mg PO DAILY 03/23/24
multivitamin 1 tab PO DAILY 03/23/24
potassium chloride 10 mEq tablet,extended release 10 meq PO Q48H 03/23/24
semaglutide 0.25 mg or 0.5 mg (2 mg/1.5 mL) subcutaneous pen injector (Ozempic) 0.5 mg SC 03/23/24
apixaban 5 mg tablet (Eliquis) 5 mg PO BID 06/03/24
insulin aspart U-100 100 unit/mL (3 mL) subcutaneous pen (Novolog FlexPen U-100 Insulin aspart) 12 sliding scale dose SC AC 06/03/24
insulin glargine 100 unit/mL (3 mL) subcutaneous pen (Lantus Solostar U-100 Insulin) 22 unit SC HS 06/03/24
metformin 500 mg tablet 500 mg PO BID 06/03/24
[2024-06-03 11:56] LABS: Glucose - Point of Care 110 mg/dl (70-99)
[2024-06-03] MEDS: NOVOLOG FLEXPEN-LOW RESISTANCE SC ×2 (13:05→18:31)
--- NOTE | 2024-06-03 16:00 | PTCARENOTE ---
Patient requesting to leave after coming back from MRI. Reached out to hospitalist and neurologist. Per neurology, patient has new acute CVA on MRI/should stay and CVA likely a result of hypoperfusion (her low BP's). Should have SBP 140-150.
Verbal phone call took place between Dr. Louis and this RN. Patient to be transferred to IMU and placed on Levophed gtt for SBP goal.
Patient agreeable to stay.
[2024-06-03] MEDS: LEVOPHED 250 IV (17:01)
--- NOTE | 2024-06-03 17:28 | W.PN.UPDATE ---
Update Note
Progress Note Update
Ongoing Epistaxis - left nostril
Plavix and Eliquis held
BP on the low side
Hold Losartan, Metoprolol and Norvasc and Lasix
IVF NSS at 100 ml/hr
Keep systolic above 140 mm hg per neuro
Pressors already at 8 MCg
BP needs too be higher
Transfer to ICU
Afrin and Ice pack
Pressure applied
ENT consulted for packing.
D/W ICU team,ENT and RN at bed side
cc time 31 min
--- NOTE | 2024-06-03 17:40 | PTCARENOTE ---
Patient arrived to unit with active nose bleed from left nostril, saturating a roll of gauze pads within minutes. Attempt to stop bleed unsuccessful with interventions of Ice applied to bridge of nose, pressure to bridge of nose and pt continues to
Complain of feeling like choking on blood drainage. Pt dose cough up large amount of blood as well. Pt hypotensive and Levophed initiated and increased to 8mcg which is max allowed on IMU. Dr. Blackman and Dr. Trujillo notified of pt status and pt
seen and assessed by Dr. Blackman and transferred to ICU with Levophed at 8 mcg and nowhere near goal SBP. Pt denies pain at this time. NIH completed and ZERO. Pt does have history of old left eye injury and reports vision is blurry and distorted at
baseline. Verbal report to POWDER GUARD given.
[2024-06-03 18:04] LABS: Hematocrit 35.2 % (37.0-47.0); Hemoglobin 12.3 g/dL (12.0-16.0); Mean Corp Hgb Conc. 34.9 g/dL (33.0-37.0); Mean Corpuscular Hgb 28.3 pg (27.0-31.0); Mean Corpuscular Volume 80.9 fL (81.0-99.0); Mean Platelet Volume 10.5 fL (7.4-10.4); Platelet Count 213 10^3/uL (130-400); Red Blood Cell Count 4.35 10^6/uL (4.20-5.40); Red Cell Dist. Width 16.8 % (11.5-14.5); White Blood Cell Count 8.6 10^3/uL (4.8-10.8)
[2024-06-03 18:16] LABS: INR 1.12; PT 14.7 Sec (11.4-14.6)
[2024-06-03 18:17] LABS: Fibrinogen 388 MG/DL (199-459)
[2024-06-03 18:31] LABS: Glucose - Point of Care 105 mg/dl (70-99)
[2024-06-03] MEDS: NSS 1000 IV (18:34)
[2024-06-03] MEDS: AFRIN NASAL SPRAY 1 SPRAYS NASAL (18:35)
--- NOTE | 2024-06-03 18:45 | PTCARENOTE ---
Pt received from IMU to ICU room 3365 for 8mcg/min Levophed for hypotension. BP 80s/50s on IMU. BP cuff adjusted and improved to 130/70s.
Epistaxis. ENT at bedside at this time.
AAOx3. NIH 0. (poor vision in left eye at baseline). Sinus rhythm with PVCs. Lungs CTA. SpO2 95-97% on room air. Good appetite. Voids on BSC.
--- NOTE | 2024-06-03 19:15 | PTCARENOTE ---
ENT Dr. Nunn at the bedside due to patient left nare epistaxis. At end of procedure/cautery and silver nitrate, no further bleeding of left nare. Vaseline guaze, bacitracin and gauze packing per ENT in place. Patient states that she is
uncomfortable due to procedure. Tylenol given prn. HOB up.
--- NOTE | 2024-06-03 19:25 | CON.MD ---
Consultation - Medical
-
dictated.
epistaxis from L mid-septum, difficult to control due to concavity of septum there, compounded by eliquis, plavix, HTN, recent nasal O2 use
Will remove packing in 48-72 hours. minimize anticoagulants as much as possible.
[2024-06-03] MEDS: DESENEX/MITRAZOL/ZEASORB 1 APPLIC TOPICAL (19:27)
[2024-06-03] MEDS: POLYSPORIN OINTMENT 2 APPLIC TOPICAL (19:27)
[2024-06-03] MEDS: TYLENOL 650 MG PO (19:28)
--- NOTE | 2024-06-03 19:30 | PTCARENOTE ---
Patient received sitting up in bed, awake, alert and oriented. ENT at bedside attempting to stop epistaxis left nare. Cautery and silver nitrate with successful control of bleeding. Vaseline gauze and dry sterile gauze packing per ENT. Cares
rendered with CHG cloth bath, linens changed. Respirations nonlabored, BBS clear. S1S2 regular, positive loud murmur. SR with 1st degree AVB and BBB with occasional PVCs. Episode of Trigeminy PVCs noted. Positive pulses x 4 extremities, no edema. No
CP or SOB. Patient is anxious, emotional support and encouragement given. Abdomen soft and nontender. Dinner tray at bedside. Bed in low and locked position, call aguillon within reach.
[2024-06-03] MEDS: LANTUS 0.22 UNITS SC (21:39)
[2024-06-03] MEDS: CRESTOR 40 MG PO (21:39)
[2024-06-03 21:46] LABS: Glucose - Point of Care 141 mg/dl (70-99)
--- NOTE | 2024-06-03 22:30 | PTCARENOTE ---
Patient requested medication to help her relax. Dustin PINEDA notified, new orders received. Patient assisted to [facility], gait steady, tolerates well. Voids without difficulty. Self perineal care with wet wipes. Assisted back to bed. Ativan IV x 1 given per
order. Patient instructed to call for help if needed, bedrails up. Call aguillon in reach. Unable to place CPAP due to nosebleed. Oxygen at 2L/nc placed to right nare. HOB up 45 degrees.
[2024-06-03] MEDS: ATIVAN 0.5 MG IV (22:43)
[2024-06-03] MEDS: NSS (PRESERVATIVE FREE) 0.25 ML IV (22:43)
[2024-06-04] VITALS (66 sets, daily range): BP systolic 81–165; BP diastolic 46–124; BMI 38.5
--- NOTE | 2024-06-04 | PTCARENOTE ---
Physical assessment remains unchanged. Patient appears to be sleeping comfortably when undisturbed with eyes closed, lying still, respirations nonlabored. VSS. No change in neuro assessment.
[2024-06-04] MEDS: LEVOPHED 250 IV ×3 (00:12→19:55)
[2024-06-04] MEDS: NSS 1000 IV ×2 (03:36→14:05)
--- NOTE | 2024-06-04 04:00 | PTCARENOTE ---
Assisted to bedside commode, voids without difficulty. Am labs drawn. Loose NPC after waking up. SBP slightly low after standing, 93-94. Denies dizziness. Levophed titrated up, see flowsheet. Rest of physical assessment unchanged.
[2024-06-04 04:35] LABS: Blood Urea Nitrogen 23 mg/dl (7-17); Calcium 10.1 mg/dl (8.4-10.2); Carbon Dioxide 30 mmol/L (22-30); Chloride 103 mmol/L (98-107); Estimated Creatinine Clearance 60 ml/min; Glucose 147 mg/dl (70-99); Magnesium 2.1 mg/dl (1.6-2.3); Potassium 3.2 mmol/L (3.5-5.1); Sodium 141 mmol/L (135-145); eGFR > 60.00
[2024-06-04 05:05] LABS: TSH 2.42 uIU/ml (0.47-4.68)
[2024-06-04] MEDS: KCL 270 MEQ IV (05:22)
--- NOTE | 2024-06-04 07:03 | PTCARENOTE ---
Report given verbally to oncoming shift, BILL Casey. Questions answered.
[2024-06-04] MEDS: PROTONIX 40 MG PO (08:08)
[2024-06-04] MEDS: NOVOLOG FLEXPEN-LOW RESISTANCE 1 UNITS SC (08:09)
[2024-06-04] MEDS: GLUCOPHAGE 500 MG PO ×2 (08:09→18:12)
[2024-06-04] MEDS: NOVOLOG FLEXPEN 8 UNITS SC ×3 (08:09→17:47)
--- NOTE | 2024-06-04 08:09 | CON.INTV ---
Consultation
Consultation Request
Date/Time Consultation Requested: 06/03/2024
Date/Time Consultation Performed: 06/04/2024
Requesting Provider: Dr. Louis
Performing Provider: Dr. Dickson
Reason for Consultation: Hypotension; CVA; Nosebleed
Medical History
-
Chief Complaint: Left arm weakness
History of Present Illness:
68-year-old obese female former tobacco smoker with a PMHx of CVA (09/2022 + 11/2023), HFpEF, DM type II, hypertension, paroxysmal A-fib on Eliquis, ROSE on CPAP, multivessel CAD with recent JUAN to LAD on 03/23/2024 on Plavix/Eliquis as an outpatient,
history of left orbital floor fracture s/p plate repair (05/2023) with residual numbness (left orbit down to chin) + alcohol use who presented with dizziness, difficulty speaking and left arm weakness. She says it feels similar to her prior strokes.
Left arm weakness is not new but it did worsen, and she had no numbness or tingling. She also has a history of headaches. In the ER she was afebrile to 97.9 �F, pulse rate 78, respiratory rate 15, BP 120/69 and saturating 99% on room air. CT
head showed no acute intracranial abnormality. Initial labs showed creatinine 1.5, calcium 11 and glucose 78. She initially was admitted to telemetry as a TIA given that her initial presenting symptoms resolved by the time she was being admitted.
She was hypotensive with systolic blood pressure dropping into the 70s but remained asymptomatic. Given a fluid bolus. MRI brain on 06/03 showed a punctate acute/subacute infarct in the bilateral parietal lobes and in the posterolateral right
frontal lobe adjacent to the known chronic transcortical infarct with encephalomalacia and gliosis. She ended up needing to be started on Levophed. She also developed a nosebleed from her left nostril, and her blood thinners were held, ENT was
consulted. Given her continued hypotension despite being on Levophed at 8 mcg/min, she was transferred to the ICU for further care and [employer] services consulted for additional management/recommendations.
Patient was seen and evaluated this morning. Currently on Levophed at 6 mcg/min. She feels well, although is tired but says her left arm is no longer weak and she does not have any difficulty speaking. Current heart rate 74, BP 109/78 and
saturating 96% on 2 L/min nasal cannula. Per the nurse, she is only on oxygen as she was just sleeping. She had a panic attack earlier in the morning and was given Ativan for this which helped. There is packing present in her left nare, and no
active bleeding seen, and the patient says she does not feel any blood dripping down her throat and her right side of her nose is not bleeding either. She currently denies THORPE, visual changes, chest pain, SOB, abdominal pain, nausea, diarrhea,
fevers or chills.
PMHx: History of CVA (09/2022 + 11/2023), DM type II, hypertension, paroxysmal A-fib, ROSE on CPAP, MV-CAD s/p JUAN to LAD (03/23/2024) on plavix + Eliquis, former tobacco smoker, HFpEF, history of left orbital floor fracture s/p plate repair (05/2023)
with residual numbness (left orbit down to chin), alcohol use, obesity
PSHx: Tonsillectomy, hysterectomy
Past Medical History
Past Medical History: Other (Above as per HPI)
Past Surgical History: Other (Above as per HPI)
Social History
Tobacco: Former Smoker
Alcohol: Occasional
Drug: None
Family History
Family History: CAD (Father) and Cancer (Father + mother (unknown types))
Allergies / Home Medications
Allergies
Allergy/AdvReac Type Severity Reaction Status Date / Time
lisinopril Allergy Itching Verified 01/04/24 11:44
Home Medications
�Medication �Instructions �Recorded �Confirmed �Last Taken �Type
sseyugqwodn-pnu-ogazbtqst-vitC 1 cap PO BID Supplement 12/08/23 06/03/24 03/23/24 09:00 History
capsule (Glucosamine Complex-MSM
capsule)
losartan 50 mg tablet 25 mg PO HS Heart Failure 12/08/23 06/03/24 03/22/24 23:00 History
rosuvastatin 40 mg tablet 40 mg PO HS High Cholesterol 12/08/23 06/03/24 03/22/24 23:00 History
pantoprazole 40 mg tablet,delayed 40 mg PO DAILY #30 tabs 12/11/23 06/03/24 03/23/24 09:00 Rx
release (Protonix)
amlodipine 2.5 mg tablet 2.5 mg PO DAILY Blood Pressure 03/23/24 06/03/24 03/23/24 09:00 History
clopidogrel 75 mg tablet 75 mg PO DAILY #90 tabs 03/23/24 06/03/24 Unknown Rx
escitalopram oxalate 10 mg tablet 10 mg PO DAILY Mental 03/23/24 06/03/24 03/23/24 09:00 History
Health/Anxiety
furosemide 20 mg tablet 40 mg (2 x 20 mg) PO BID Fluid 03/23/24 06/03/24 03/22/24 10:00 Rx
Retention/Swelling #0 tabs
metoprolol succinate 25 mg 25 mg PO DAILY Heart Failure 03/23/24 06/03/24 03/23/24 09:00 History
tablet,extended release 24 hr
multivitamin 1 tab PO DAILY Supplement 03/23/24 06/03/24 03/23/24 09:00 History
potassium chloride 10 mEq 10 meq PO Q48H Electrolyte 03/23/24 06/03/24 03/22/24 10:00 History
tablet,extended release Repletion
semaglutide 0.25 mg or 0.5 mg (2 0.5 mg SC TH Diabetes 03/23/24 06/03/24 03/13/24 13:00 History
mg/1.5 mL) subcutaneous pen
injector (Ozempic)
apixaban 5 mg tablet (Eliquis) 5 mg PO BID Blood Clot 06/03/24 06/03/24 Unknown History
Prevention/Tx
insulin aspart U-100 100 unit/mL 12 unit SC AC Diabetes 06/03/24 06/03/24 Unknown History
(3 mL) subcutaneous pen (Novolog
FlexPen U-100 Insulin aspart)
insulin glargine 100 unit/mL (3 22 unit SC HS Diabetes 06/03/24 06/03/24 Unknown History
mL) subcutaneous pen (Lantus
Solostar U-100 Insulin)
metformin 500 mg tablet 500 mg PO BID Diabetes 06/03/24 06/03/24 Unknown History
Review of Systems
-
History Source: Patient
All other systems: Negative unless noted
Vitals / Labs / Diagnostic Testing
Vital Signs
Temp Pulse Resp BP Pulse Ox
98.4 F 84 19 120/60 92
06/04/24 03:36 06/04/24 06:35 06/04/24 06:35 06/04/24 06:35 06/04/24 06:35
Lab Data
06/03/24 17:58
06/04/24 03:58
Laboratory Results
06/03/24
17:58
PT 14.7 H
INR 1.12
APTT 31.0
Diagnostic Testing:
Physical Exam
-
HEENT: Normocephalic, Anicteric and Other (Thick neck)
Cardiovascular: Murmur (LINDSAY heard best at RUSB), Peripheral Edema (negative) and Other (Normal rate)
Respiratory: Wheeze (negative), Rales (negative), Rhonchi (negative) and Non-Labored Respirations
GI: Soft, Distended (Abdominal obesity), Non Tender and Normal Bowel Sounds
Neurology: AO x 3, Tremors (negative) and Other (Able to lift both upper extremities antigravity; moving all 4 extremities voluntarily)
Skin: Warm and Dry
General: Respiratory Distress (negative), Comfortable, Fever (negative) and Chills (negative)
Assessment
-
Assessment: 68-year-old obese female former tobacco smoker with a PMHx of CVA (09/2022 + 11/2023), HFpEF, DM type II, hypertension, paroxysmal A-fib on Eliquis, ROSE on CPAP, multivessel CAD with recent JUAN to LAD on 03/23/2024 on Plavix/Eliquis as an
outpatient, history of left orbital floor fracture s/p plate repair (05/2023) with residual numbness (left orbit down to chin) + alcohol use who presented with dizziness, difficulty speaking and left arm weakness. She says it feels similar to her
prior strokes. Left arm weakness is not new but it did worsen, and she had no numbness or tingling. She also has a history of headaches. In the ER she was afebrile to 97.9 �F, pulse rate 78, respiratory rate 15, BP 120/69 and saturating 99% on
room air. CT head showed no acute intracranial abnormality. Initial labs showed creatinine 1.5, calcium 11 and glucose 78. She initially was admitted to telemetry as a TIA given that her initial presenting symptoms resolved by the time she was
being admitted. She was hypotensive with systolic blood pressure dropping into the 70s but remained asymptomatic. Given a fluid bolus. MRI brain on 06/03 showed a punctate acute/subacute infarct in the bilateral parietal lobes and in the
posterolateral right frontal lobe adjacent to the known chronic transcortical infarct with encephalomalacia and gliosis. She ended up needing to be started on Levophed. She also developed a nosebleed from her left nostril, and her blood thinners
were held, ENT was consulted. Given her continued hypotension despite being on Levophed at 8 mcg/min, she was transferred to the ICU for further care and [employer] services consulted for additional management/recommendations.
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
repair (05/2023) with residual numbness (left orbit down to chin), alcohol use, obesity
Impression:
#Circulatory shock on vasopressors
#Epistaxis from left septum s/p packing from ENT on
#Subacute right-MCA CVA with LUE weakness and expressive aphasia (both these Sx have markedly improved)
#Hypokalemia
#Paroxysmal A-fib on Eliquis
#MV-CAD with recent JUAN to LAD (03/23/2024) on Plavix + Eliquis
#Valvular heart disease with mild MR + mild TR (per TTE from 12/09/2023)
#Moderate�severe concentric LVH
#ROSE on CPAP (had previously seen pulmonary at [facility])
#Obesity (BMI: 38.5) on Ozempic
#Former tobacco smoker
#History of HFpEF
#Alcohol use
#DM type II on insulin
Plan:
- Continue with vasopressors and maintain blood pressure parameters to help perfuse brain given she suffered a watershed stroke, per neurology; goal SBP>140-150 with MAP>70-75
- This morning she was on Levophed at 6 mcg/min; adjust vasopressors to maintain BP as above; may need to start midodrine if unable to wean off Levophed
- Continue IVF with NS 0.9% at 100 cc/hr
- Hold antihypertensives for now
- HR control with goal <110
- Unclear if there is another process causing her hypotension as her white count is normal, creatinine has improved, TSH is WNL at 2.42, and she remains afebrile
- Re-check echo; check UA with reflex to UCx; check CXR
- Check random cortisol --> if <10 then start stress dose steroids; if 10-19 then consider co-syntropin stimulation test
- Continue neurochecks + NIHSS
- Check stat CT head for any change in neurochecks with immediate notification to neurology
- Eventually will resume Plavix + Eliquis, if neurology + cardiology agree
- PT/OT
- [employer]
- Continue with nasal packing in left nare as per ENT
- ENT will remove packing in 24-48 hrs
- Per ENT, no need for antibiotics to prevent TSS
- Being resumed on Plavix today given her recent JUAN to LAD; last dose of Eliquis on 06/03/2024
- Trend H/H and transfuse if needed to keep Hb>7-8g/dL; keep plt>50k; INR was 1.12 with fibrinogen 388 on 06/03/2024
- Maintain SpO2 >90-94% using supplemental O2 as needed
- She uses CPAP at night, however in the setting of her active nosebleed with packing in her left nare, unable to use CPAP for now until her nosebleed has resolved and packing has been removed
- She had previously followed with pulmonary at [facility], and she should follow-up with them again after discharge; [facility] office information provided in case she wishes to switch to us
- prn nebulized bronchodilators - not currently bronchospastic
- Incentive spirometer encouraged 10x per hour for at least 4 hrs a day
- Replete electrolytes with K>4, Mg>2
- Maintain euglycemia with goal BG 140-180 and continue basal�bolus SQ insulin with ISS; last HbA1c: 13.5 on 12/09/2023 � recheck A1c
- Continue PPI (home med)
- DVT ppx - currently on SCDs given her epistaxis
Continue ICU level care for this critically ill patient.
Critical care statement: A total of 42 minutes of critical care time was provided for this patient today. This includes management of unstable vital signs, evaluation of the patient at bedside, reviewing the patient's pertinent medical records
including radiographs, microbiology, laboratory evaluations, and discussion with primary team, consultants, pharmacy, nutrition, physical therapy, case management, charge nurse, critical care nursing, and respiratory therapy.
Data:
MRI brain 06/03/2024: Punctate acute or subacute infarcts in the bilateral parietal lobes and in the posterolateral right frontal lobe adjacent to the known chronic transcortical infarct with encephalomalacia and gliosis.
[2024-06-04] MEDS: DESENEX/MITRAZOL/ZEASORB 1 APPLIC TOPICAL ×2 (08:10→19:54)
[2024-06-04 08:19] LABS: Glucose - Point of Care 159 mg/dl (70-99)
--- NOTE | 2024-06-04 09:16 | CON.CAR ---
Addendum entered and electronically signed by Aries Christopher MD 06/04/24 10:35:
Patient seen and examined
Agree with PA-C note and assessment
Agree with PA-C plan
Patient extremely tearful at bedside
Currently holding her naris to stop the nasal bleeding
Recent events and hospitalizations plus procedures noted
����Physical Exam
���������������������General:��no apparent distress, not acutely ill
���������������������������Neck:��supple. no meningeal signs. normal psoterior pharynx
������������������������
���������������������������Heart:��s1/s2 regular rate and rhythm, no murmur. equal radial pulses.
��������������������������Lungs: ��no acute respiratory distress. clear bilaterally
����������������������Abdomen:�normal bowel sounds. not tender. no CVAT
��������������������������Neuro:��alert and oriented. no focal neurological deficits
������������������������������Skin: ��no rash
�����������������������Psychiatric:�well kept. interactive and cooperative
�����������������������Extremities:��no edema. no calf tenderness. negative homans. good distal pulses
PCP: Dr. Ty
Cardiology: Dr. Brooks
Impression:
Presented with L sided weakness
Subacute right MCA CVA
Epistaxis requiring nasal packing
CAD
s/p PCI of proximal LAD 03/23/2024h/o left hemispheric CVA treated at [facility] 09/2022
Paroxysmal Afib
s/p Biotronik ILR at [facility] 09/2022
GIB treated at [facility] 10/2022
unremarkable upper endoscopy, never completed colonoscopy due to anesthesias concerns over recent stroke DM 2
HTN
Hyperlipidemia
Former smoker
Possible h/o hypertrophic CM
Echo 12/09/2023: EF > 75%, moderate to severe concentric LVH, mild MR, mild TR, estimated PAP 23 mmHg
LHC 03/23/2024: LM: Mild distal tapering. LAD: Proximal LAD has a hazy calcified 70 to 80% stenosis just proximal to the takeoff of D1. Mid to distal LAD has diffuse mild to moderate atherosclerotic plaque. LCx: Moderate to severe atherosclerotic
plaque proximal to a small left posterolateral branch. Otherwise mild diffuse atherosclerotic plaque. RCA: 30 to 40% tubular stenosis in the proximal RCA. Angioplasty: Successful PCI of proximal LAD stenosis with a 3.0 x 15 mm Medtronic [place] JUAN.
Plan:
-Presented with left-sided weakness. Found to have subacute right MCA CVA. Eliquis placed on hold by neurology and placed on aspirin and Plavix.
-Then developed epistaxis 06/03 and required nasal packing. Plavix placed on hold, but resumed in a.m. 06/04/2024. No significant recurrent bleeding noted overnight.
-Known h/o paroxysmal A-fib. Has been maintained on Eliquis and Plavix, but also has history of GI bleed.
- As an outpatient she should be considered for a watchman implantation given prior stroke, A-fib, and need for oral anticoagulation plus antiplatelet therapy for history of A-fib and stent
-Resume Eliquis once safe from a neurologic and ENT standpoint. The ideal regimen would be Plavix plus Eliquis but if that is deemed too high risk from a bleeding perspective we could consider aspirin plus Eliquis as an alternative although we do
desire 1 year of Plavix therapy post LAD stent if clinical situation allows. A third choice would be DAPT therapy although she would be less protected against stroke from her A-fib. Either way we have no clear-cut low risk choice in this situation
to address her post stent antiplatelet regimen and need for oral anticoagulant given history of stroke and A-fib
-She has no chest pain or shortness of breath.
-Hypotension noted. Amlodipine, metoprolol, and Lasix remain on hold.
-K 3.2. Agree with repletion. Mag stable at 2.1.
-Remains in SR on review of ECG from 06/02 and no arrhythmias noted on tele. Does have ILR implanted we can interrogate while she is in hospital
-Continue Crestor
-Will arrange cardiology follow-up with Dr. Daigle and Dr. Brooks to discuss alternatives such as watchman implantation
Original Note:
Consultation
Consultation Request
Date/Time Consultation Requested: 06/04/2024
Date/Time Consultation Performed: 06/04/2024
Requesting Provider: Dr. Blackman
Performing Provider: Mary Fried PA-C for Dr. Christopher
Reason for Consultation: Epistaxis, h/o Afib, recent stent
Medical History
-
History of Present Illness:
HPI: Carmela is a 68-year-old female with past medical history of CAD with recent PCI of the LAD 03/23/2024, prior CVA, paroxysmal A-fib, GI bleed in 2022, DM 2, hypertension, hyperlipidemia, former tobacco abuse, and possible history of hypertrophic
CM. She presented to ER for evaluation of left-sided weakness that was transient. Symptoms resolved while in ER. She was admitted for further workup and evaluation. MRI of brain showed punctate acute or subacute infarcts in the bilateral
parietal lobes and in the posterior lateral right frontal lobe. Neurology evaluated patient and Eliquis placed on hold. She was placed on aspirin and Plavix and Lasix, amlodipine, and Toprol were held due to hypotension. She was placed on
Levophed for BP support. She then developed significant epistaxis in the afternoon/evening 06/03. Plavix also placed on hold. ENT consulted and nasal packing placed. Cardiology consulted given history of A-fib and recent stenting now with
significant epistaxis requiring both Eliquis and Plavix to be held. She has no current cardiac complaints, but notes significant anxiety and is upset about being admitted over the holiday.
PMH:
CAD
s/p PCI of proximal LAD 03/23/2024
h/o left hemispheric CVA treated at [facility] 09/2022
Paroxysmal Afib
s/p Biotronik ILR at [facility] 09/2022
GIB treated at [facility] 10/2022
unremarkable upper endoscopy, never completed colonoscopy due to anesthesias concerns over recent stroke
DM 2
HTN
Hyperlipidemia
Former smoker
Possible h/o hypertrophic CM
Past Medical History
Past Medical History: Other (in HPI)
Past Surgical History: Cardiac (Biotronik ILR at [facility] 2022), Gynecological (hysterectomy), Tonsilectomy and Other (orbital floor fracture repair 05/2023)
Social History
Tobacco: Former Smoker (smoked from teenager to 2018)
Alcohol: Daily (glass of wine most days)
Drug: None
Personal: Single
Living: Alone
Employment: Retired
Family History
Family History: CAD (father)
Allergies / Home Medications
Allergy/AdvReac Type Severity Reaction Status Date / Time
lisinopril Allergy Itching Verified 01/04/24 11:44
�Medication �Instructions �Recorded �Confirmed �Type
yoczqrgesru-ioy-prlgyhfoe-vitC 1 cap PO BID Supplement 12/08/23 06/03/24 History
capsule (Glucosamine Complex-MSM
capsule)
losartan 50 mg tablet 25 mg PO HS Heart Failure 12/08/23 06/03/24 History
rosuvastatin 40 mg tablet 40 mg PO HS High Cholesterol 12/08/23 06/03/24 History
pantoprazole 40 mg tablet,delayed 40 mg PO DAILY #30 tabs 12/11/23 06/03/24 Rx
release (Protonix)
amlodipine 2.5 mg tablet 2.5 mg PO DAILY Blood Pressure 03/23/24 06/03/24 History
clopidogrel 75 mg tablet 75 mg PO DAILY #90 tabs 03/23/24 06/03/24 Rx
escitalopram oxalate 10 mg tablet 10 mg PO DAILY Mental 03/23/24 06/03/24 History
Health/Anxiety
furosemide 20 mg tablet 40 mg (2 x 20 mg) PO BID Fluid 03/23/24 06/03/24 Rx
Retention/Swelling #0 tabs
metoprolol succinate 25 mg 25 mg PO DAILY Heart Failure 03/23/24 06/03/24 History
tablet,extended release 24 hr
multivitamin 1 tab PO DAILY Supplement 03/23/24 06/03/24 History
potassium chloride 10 mEq 10 meq PO Q48H Electrolyte 03/23/24 06/03/24 History
tablet,extended release Repletion
semaglutide 0.25 mg or 0.5 mg (2 0.5 mg SC TH Diabetes 03/23/24 06/03/24 History
mg/1.5 mL) subcutaneous pen
injector (Ozempic)
apixaban 5 mg tablet (Eliquis) 5 mg PO BID Blood Clot 06/03/24 06/03/24 History
Prevention/Tx
insulin aspart U-100 100 unit/mL 12 unit SC AC Diabetes 06/03/24 06/03/24 History
(3 mL) subcutaneous pen (Novolog
FlexPen U-100 Insulin aspart)
insulin glargine 100 unit/mL (3 22 unit SC HS Diabetes 06/03/24 06/03/24 History
mL) subcutaneous pen (Lantus
Solostar U-100 Insulin)
metformin 500 mg tablet 500 mg PO BID Diabetes 06/03/24 06/03/24 History
Review of Systems
-
History Source: Patient
All other systems: Negative unless noted
Physical Exam
Vital Signs
Temp Pulse Resp BP Pulse Ox
98.4 F 84 19 120/60 92
06/04/24 03:36 06/04/24 06:35 06/04/24 06:35 06/04/24 06:35 06/04/24 06:35
Lab Results
06/03/24 17:58
06/04/24 03:58
Physical Exam
General: Well Developed, Well Nourished and No Apparent Distress
HEENT: Normocephalic, Anicteric and Moist Mucous Membranes
Respiratory: Clear and Non Labored Respirations
Cardiac: S1/S2 and Regular Rhythm
Musculoskeletal: No Clubbing, No Cyanosis and No Edema
Skin: Warm and Dry
Neuro: AO x 3
Impression / Plan
-
PCP: Dr. Ty
Cardiology: Dr. Brooks
Impression:
Presented with L sided weakness
Subacute right MCA CVA
Epistaxis requiring nasal packing
CAD
s/p PCI of proximal LAD 03/23/2024
h/o left hemispheric CVA treated at [facility] 09/2022
Paroxysmal Afib
s/p Biotronik ILR at [facility] 09/2022
GIB treated at [facility] 10/2022
unremarkable upper endoscopy, never completed colonoscopy due to anesthesias concerns over recent stroke
DM 2
HTN
Hyperlipidemia
Former smoker
Possible h/o hypertrophic CM
Echo 12/09/2023: EF > 75%, moderate to severe concentric LVH, mild MR, mild TR, estimated PAP 23 mmHg
LHC 03/23/2024: LM: Mild distal tapering. LAD: Proximal LAD has a hazy calcified 70 to 80% stenosis just proximal to the takeoff of D1. Mid to distal LAD has diffuse mild to moderate atherosclerotic plaque. LCx: Moderate to severe atherosclerotic
plaque proximal to a small left posterolateral branch. Otherwise mild diffuse atherosclerotic plaque. RCA: 30 to 40% tubular stenosis in the proximal RCA. Angioplasty: Successful PCI of proximal LAD stenosis with a 3.0 x 15 mm Medtronic [place] JUAN.
Plan:
-Presented with left-sided weakness. Found to have subacute right MCA CVA. Eliquis placed on hold by neurology and placed on aspirin and Plavix.
-Then developed epistaxis 06/03 and required nasal packing. Plavix placed on hold, but resumed in a.m. 06/04/2024. No recurrent bleeding noted overnight.
-Repeat CBC not ordered 06/04. Hemoglobin 06/03 was 12.3.
-Known h/o paroxysmal A-fib. Has been maintained on Eliquis and Plavix, but also has history of GI bleed.
-Briefly discussed watchman given multiple bleeding issues on anticoagulation. Can discuss further as outpatient.
-Resume Eliquis once safe from a neurologic and ENT standpoint.
-She has no chest pain or shortness of breath.
-Hypotension noted. Amlodipine, metoprolol, and Lasix remain on hold.
-K 3.2. Agree with repletion. Mag stable at 2.1.
-Remains in SR on review of ECG from 06/02 and no arrhythmias noted on tele. Does have ILR implanted
-Continue Crestor
-Will arrange cardiology follow-up
HPI: Carmela is a 68-year-old female with past medical history of CAD with recent PCI of the LAD 03/23/2024, prior CVA, paroxysmal A-fib, GI bleed in 2022, DM 2, hypertension, hyperlipidemia, former tobacco abuse, and possible history of hypertrophic
CM. She presented to ER for evaluation of left-sided weakness that was transient. Symptoms resolved while in ER. She was admitted for further workup and evaluation. MRI of brain showed punctate acute or subacute infarcts in the bilateral
parietal lobes and in the posterior lateral right frontal lobe. Neurology evaluated patient and Eliquis placed on hold. She was placed on aspirin and Plavix and Lasix, amlodipine, and Toprol were held due to hypotension. She was placed on
Levophed for BP support. She then developed significant epistaxis in the afternoon/evening 06/03. Plavix also placed on hold. ENT consulted and nasal packing placed. Cardiology consulted given history of A-fib and recent stenting now with
significant epistaxis requiring both Eliquis and Plavix to be held. She has no current cardiac complaints, but notes significant anxiety and is upset about being admitted over the holiday.
Data Reviewed
-
EKG: Tracing Personally Visualized and interpreted
MRI: Report Reviewed by me
Labs: Labs Reviewed by me
Old Records: Reviewed
[2024-06-04] MEDS: PLAVIX 75 MG PO (09:45)
[2024-06-04] MEDS: KCL 40 MEQ PO (09:45)
[2024-06-04] MEDS: ATIVAN 0.5 MG PO ×3 (09:45→23:14)
--- NOTE | 2024-06-04 10:00 | PTCARENOTE ---
pt awake and alert , very anxious , tearful , wants to go home , NSR on monitor , BP 126/96 , on Levophed at 6mcg now , NIHSS at change of shift 0 ,no changes , tolerating diet , labs noted
[2024-06-04 10:39] LABS: Glucose - Point of Care 113 mg/dl (70-99)
[2024-06-04] MEDS: AFRIN NASAL SPRAY 1 SPRAYS NASAL (10:58)
[2024-06-04] MEDS: LEXAPRO 10 MG PO (10:58)
[2024-06-04] MEDS: NOVOLOG FLEXPEN-LOW RESISTANCE SC ×2 (12:08→17:47)
--- NOTE | 2024-06-04 12:47 | W.PN.HOSP.TC ---
Today's Communication/Plan
-
Restart Plavix
Hold Eliquis till cleared by ENT
Cards consult
Assessment / Plan
Assessment / Plan
IMPRESSION:
68-year-old female with multiple comorbidities including CAD status post recent stent in March, atrial fibrillation on anticoagulation with Eliquis, hypertension, CHF with preserved EF, GERD, ROSE on CPAP, history of CVA presenting to the
Emergency Department with approximately 1 day of left-sided weakness mostly affecting the left upper extremity. She reports that the weakness has now resolved. CT of her head is negative. She has no other focal neurological deficits. She has
been compliant with her medications including the anticoagulation Eliquis and Plavix for her PCI. She is hemodynamically stable with blood pressure slightly low at 102/70, globin was 13.5 electrolytes were normal. She has mild elevation in
creatinine to 1.5. She denies any urinary symptoms.
PLAN:
Acute cerebral ischemic infarct -transient left lower upper extremity and lower extremity weakness. Now completely resolved. NIHSS equals 0. She is already on appropriate medications and has no evidence of bleeding.
- MRI brain shows Punctate acute or subacute infarcts in the bilateral parietal lobes and in the posterolateral right frontal lobe adjacent to the known chronic transcortical infarct with encephalomalacia and gliosis.
- Sounds embolic. Patient states that she is compliant with her medication. Patient started on IV vasopressors to keep the blood pressure high in the setting of acute stroke.
- Appreciate neurology consultation-await further input from today.
Acute left nostril epistaxis-status post cautery and packing. Seems to stopped. Holding Eliquis. Patient needs a Plavix with coronary stent placement from March of this year. Communicated this with ENT today.
LAWRENCE -no extrarenal losses unclear if medication related. Improved creatinine to 1 point open with IV fluids and holding Lasix.Significantly elevated LVEDP at 30 mmHg on cath from March 2024. Consult cardiology for diuretic management.
DM II
- lantus 22 hs
- aspart 12 units tidac at home, continue with 8 units here
- sliding scale insulin
- metformin 1000 bid
-no hypoglycemia
CAD - No CP
- continue plavix, and statin
- continue metoprolol succinate 50 daily
AFIB - NSR
- Hold apixaban due to epistaxis
- metoprolol
ROSE
- oxygen prn
DVT PPX - on apixaban
Code Status - Full Code
DW Cards, neurology
DW RN
Total time spent on today's encounter was 52 minutes which included time spent in counseling the patient/family regarding diagnosis and treatment plan as listed above, goals of care, and symptom management. Case was discussed with nursing staff,
specialists, and care coordinators/case management. All labs and imaging personally reviewed by me. Remainder the time spent in detailed review of previous records, lab data, imaging, and other medical provider documentation.
Anticipated Discharge: > 48 hours
Subjective/Interval History
-
Date of Service: June 04, 2024
Last evening had epistaxis and got cautery and packed.
No epistaxis today
No further neurological symptoms
Denies CP or SOB
She says she is complaint with her medications
Tearful as she couldnt go home as all her family is here for [facility]
Objective Data
-
Labs:
Laboratory Results
06/04/24
03:58
Sodium 141
Potassium 3.2 L
Chloride 103
Carbon Dioxide 30
BUN 23 H
Creatinine 1.0
Glucose 147 H
Calcium 10.1
Vital Signs:
Vital Signs
Temp Pulse Resp BP Pulse Ox
97.7 F 78 11 91/64 96
06/04/24 11:00 06/04/24 12:31 06/04/24 12:31 06/04/24 12:31 06/04/24 07:28
I&O
06/03/24 06/04/24 06/05/24
06:59 06:59 06:59
Intake Total 1946.6 / 6.6 1197.5 / 1197.5
Output Total 1100 / 1100
Balance 846.6 / 976.6 1197.5 / 1197.5
Review of Systems
-
Constitutional: Denies Fever or Chills
EENT: Denies Sore Throat
Respiratory: Denies Cough
Abdomen/GI: Denies Abdominal Pain, Nausea or Vomiting
Neuro: Denies Dizzy
Physical Exam
-
General: No Apparent Distress
HEENT: Moist Mucous Membranes and Other (left nostril packed)
Respiratory: Clear to Auscultation
Cardiac: Regular Rhythm and S1/S2
GI: Soft and Nontender
Neuro: AO x 3; Negative No Motor Deficits, Tremors, Slurred Speech or Facial Droop
Psych: Calm; Negative Confused
Data Reviewed
-
MRI: Report Reviewed by me (MRI brain)
Labs: Labs Reviewed by me
--- NOTE | 2024-06-04 13:18 | W.PN.NEURO.1 ---
Today's Communication / Plan
-
.
Subjective/Objective
Subjective Data
Date of Service: June 04, 2024
Neurology follow-up note
Ms. Boswell reports no complaints. No change in vision, strength or sensation or headache.
Brain MRI showed an acute bilateral parietal right more than left acute infarcts.
PMH: PA Fib(off AC due to anemia), R MCA/L LOUIE/?INDUSTRIAL GAS FITTER stroke(11/2023), R M2 focal dissection/ pseudoaneurysm, DM(HbA1C 13.5), BMI 39, HTN, DLP, DM, uncontrolled,ROSE, obesity, congenital long QT syndrome
PSH: ILR, tonsillectomy, RYNE, L cataract surgery
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
FH: father-lung cancer, mother-multiple myeloma
All:ACEIs
ROS:Constitutional: Negative. Negative for chills, fever and unexpected weight change.
HENT: Negative for ear pain, hearing loss, tinnitus and trouble swallowing.
Eyes: Negative. Negative for photophobia, pain and visual disturbance.
Respiratory: Negative for cough, choking and shortness of breath.
Cardiovascular: Negative for chest pain, palpitations and leg swelling.
Gastrointestinal: Negative for abdominal pain and vomiting.
Endocrine: Negative. Negative for cold intolerance.
Genitourinary: Negative for dysuria, flank pain and urgency.
Musculoskeletal: Negative for back pain, gait problem, neck pain and neck stiffness.
Skin: Negative for rash.
Allergic/Immunologic: Negative. Negative for immunocompromised state.
Neurological: positive for imbalance, chronic distal paresthesias, transient left arm weakness and numbness
General: Well developed. In no acute distress.
Cardio: Regular rate and rhythm without murmur. Extremities are without cyanosis or edema.
Neuro:
Mental Status: Alert, oriented to person, place, and date. Normal attention and recall. Good fund of knowledge. Follows complex requests across the midline. Comprehension, naming, and repetition intact.
Cranial Nerves: . Pupils are equally round and reactive to light. EOMs full. Visual rivera full to confrontation. No ptosis. No nystagmus. V1-V3 intact to light touch and pinprick bilaterally, symmetric. Face symmetric. Normal hearing AU.
The palate elevated well. SCMs and traps 5/5. Tongue midline. No dysarthria.
Motor: No pronator or arm drift. Strength 5/5 throughout. No clonus.
Reflexes: Limited exam due to position, inability to relax. No clonus bilateral
Sensory: Preserved vibration at the toes
Coordination: No dysmetria or tremor. Normal fine finger movements.
Gait: Limited exam due to telehealth wires normal stance, difficulty standing on the right foot
Assessment and Plan:
I. Bilateral MCA territory subcortical infarcts. Likely etiology�hypoperfusion in settings of hypotension.
II. 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
III. Uncontrolled DM
IV. PA A-Fib
V. Hypotension
-Fall precautions
-Avoid cerebral hypoperfusion
-Continue rosuvastatin 40 mg nightly
-Continue aspirin 81 mg once a day Plavix 75 mg once a day
-CTA of the head/neck
-Please follow-up LDL, hemoglobin A1c.
-Restart Eliquis in 1 week if clinically stable.
-SCDs/TEDs
I personally reviewed all radiology and labs along with past medical records pertinent to current medical problems. Total time spent in patient care is 35 minutes.
Thank you for allowing us to participate in the care of this patient. We will continue to follow. Please do not hesitate to contact us with any questions or concerns.
Objective Data
Vital Signs
Temp Pulse Resp BP Pulse Ox
36.5 C 74 18 128/63 96
06/04/24 11:00 06/04/24 12:49 06/04/24 12:49 06/04/24 12:49 06/04/24 07:28
Lab Results
06/03/24 17:58
06/04/24 03:58
PT 14.7 Sec (11.4-14.6) H 06/03/24 17:58
INR 1.12 06/03/24 17:58
APTT 31.0 Sec (23.4-35.0) 06/03/24 17:58
Sodium 141 mmol/L (135-145) 06/04/24 03:58
Potassium 3.2 mmol/L (3.5-5.1) L 06/04/24 03:58
BUN 23 mg/dl (7-17) H 06/04/24 03:58
Glucose 147 mg/dl (70-99) H 06/04/24 03:58
Calcium 10.1 mg/dl (8.4-10.2) 06/04/24 03:58
Patient Allergies
lisinopril Allergy (Verified 01/04/24 11:44)
Itching
Vital Signs and Labs
-
Vital Signs and Labs:
Vital Signs
Temp Pulse Resp BP Pulse Ox
36.4 C 77 14 122/46 97
06/04/24 15:00 06/04/24 13:32 06/04/24 13:32 06/04/24 13:32 06/04/24 08:00
Lab Results
06/03/24 17:58
06/04/24 03:58
PT 14.7 Sec (11.4-14.6) H 06/03/24 17:58
INR 1.12 06/03/24 17:58
APTT 31.0 Sec (23.4-35.0) 06/03/24 17:58
Sodium 141 mmol/L (135-145) 06/04/24 03:58
Potassium 3.2 mmol/L (3.5-5.1) L 06/04/24 03:58
BUN 23 mg/dl (7-17) H 06/04/24 03:58
Glucose 147 mg/dl (70-99) H 06/04/24 03:58
Calcium 10.1 mg/dl (8.4-10.2) 06/04/24 03:58
Medications
-
Medications:
Generic Name Dose Route Start Last Admin
Trade Name Freq PRN Reason Stop Dose Admin
Acetaminophen 650 mg 06/03/24 07:42 06/03/24 19:28
Acetaminophen 325 Mg Tablet PO 07/01/24 07:41 650 mg
Q4HPRN PRN Administration
mild pain/THORPE/temp> 100.4F
Amlodipine Besylate 2.5 mg 06/03/24 08:00 06/03/24 09:09
Amlodipine 2.5 Mg Tablet PO 07/01/24 07:59 Not Given
DAILY KARTIK
Bisacodyl 10 mg 06/03/24 07:43
Bisacodyl 10 Mg Rectal Suppository RECTAL 07/01/24 07:42
[id number] PRN
constipation
Clopidogrel Bisulfate 75 mg 06/04/24 10:00 06/04/24 09:45
Clopidogrel 75 Mg Tablet PO 07/02/24 09:59 75 mg
DAILY KARTIK Administration
Escitalopram Oxalate 10 mg 06/04/24 10:00 06/04/24 10:58
Escitalopram 10 Mg Tablet PO 07/02/24 09:59 10 mg
DAILY KARTIK Administration
Furosemide 40 mg 06/03/24 08:00 06/03/24 09:09
Furosemide 20 Mg Tablet PO 07/01/24 07:59 Not Given
BID KARTIK
Insulin Glargine 22 units/ 0.22 mls @ 0 mls/hr 06/03/24 22:00 06/03/24 21:39
Device SC 07/01/24 21:59 0.22 mls
HS KARTIK Administration
As Directed
Norepinephrine Bitartrate 4 mg in 250 mls @ 0 mls/hr 06/03/24 16:15 06/04/24 14:04
Levophed IV 250 mls
PER PROTOCOL KARTIK Administration
Protocol
Per Protocol
Sodium Chloride 1,000 mls @ 100 mls/hr 06/03/24 17:30 06/04/24 14:05
Nss IV 1,000 mls
.Q10H KARTIK Administration
Insulin Aspart 8 units 06/03/24 07:30 06/04/24 12:07
Insulin Aspart (100 Units/Ml) 3 Ml Flexpen SC 07/01/24 07:29 8 units
AC KARTIK Administration
Insulin Aspart 0 units 06/03/24 07:30 06/04/24 12:08
Insulin Aspart Low Resistance 300 Units/3 Ml Pen.Injctr SC 07/01/24 07:29 Not Given
AC KARTIK
Protocol
Lorazepam 0.5 mg 06/04/24 09:28 06/04/24 09:45
Lorazepam 0.5 Mg Tablet PO 07/02/24 09:27 0.5 mg
Q4HPRN PRN Administration
anxiety
Meclizine HCl 12.5 mg 06/03/24 06:49
Meclizine 12.5 Mg Tablet PO 07/01/24 06:48
TID PRN
dizziness
Metformin HCl 500 mg 06/03/24 08:00 06/04/24 08:09
Metformin 500 Mg Regular Release Tablet PO 07/01/24 07:59 500 mg
BID@0800,1700 KARTIK Administration
Metoprolol Succinate 50 mg 06/03/24 08:00 06/03/24 09:09
Metoprolol 25 Mg Extended Release Tablet PO 07/01/24 07:59 Not Given
DAILY KARTIK
Miconazole Nitrate 0 applic 06/03/24 20:00 06/04/24 08:10
Miconazole Powder Bottle TOPICAL 07/01/24 19:59 1 applic
BID KARTIK Administration
Oxymetazoline HCl 0 sprays 06/03/24 18:00 06/04/24 10:58
Oxymetazoline 0.05% (Nasal [place]avan) 15 Ml Bottle NASAL 07/01/24 17:59 1 sprays
BID KARTIK Administration
Pantoprazole Sodium 40 mg 06/03/24 08:00 06/04/24 08:08
Pantoprazole 40 Mg Delayed Release Tablet PO 07/01/24 07:59 40 mg
DAILY KARTIK Administration
Polyethylene Glycol 17 grams 06/03/24 07:46
Polyethylene Glycol Powder 17 Grams Packet PO 07/01/24 07:45
DAILYPRN PRN
constipation
Rosuvastatin Calcium 40 mg 06/03/24 22:00 06/03/24 21:39
Rosuvastatin (Crestor) 40 Mg Tablet PO 07/01/24 21:59 40 mg
HS KARTIK Administration
Senna/Docusate Sodium 1 tablet 06/03/24 06:49
Docusate W/Senna (Loyda-Colace) Tablet PO 07/01/24 06:48
BIDPRN PRN
constipation
Sodium Chloride 0 flush 06/03/24 03:00
Sodium Chloride 0.9% (Flush) Syringe IV 07/01/24 02:59
PER PROTOCOL KARTIK
Home Medications
-
Home Medications
qwshkjhubny-usi-chjrhlihd-vitC capsule (Glucosamine Complex-MSM capsule) 1 cap PO BID Supplement 12/08/23
losartan 50 mg tablet 25 mg PO HS Heart Failure 12/08/23
rosuvastatin 40 mg tablet 40 mg PO HS High Cholesterol 12/08/23
pantoprazole 40 mg tablet,delayed release (Protonix) 40 mg PO DAILY #30 tabs 12/11/23
amlodipine 2.5 mg tablet 2.5 mg PO DAILY Blood Pressure 03/23/24
clopidogrel 75 mg tablet 75 mg PO DAILY #90 tabs 03/23/24
escitalopram oxalate 10 mg tablet 10 mg PO DAILY Mental Health/Anxiety 03/23/24
furosemide 20 mg tablet 40 mg (2 x 20 mg) PO BID Fluid Retention/Swelling #0 tabs 03/23/24
metoprolol succinate 25 mg tablet,extended release 24 hr 25 mg PO DAILY Heart Failure 03/23/24
multivitamin 1 tab PO DAILY Supplement 03/23/24
potassium chloride 10 mEq tablet,extended release 10 meq PO Q48H Electrolyte Repletion 03/23/24
semaglutide 0.25 mg or 0.5 mg (2 mg/1.5 mL) subcutaneous pen injector (Ozempic) 0.5 mg SC TH Diabetes 03/23/24
apixaban 5 mg tablet (Eliquis) 5 mg PO BID Blood Clot Prevention/Tx 06/03/24
insulin aspart U-100 100 unit/mL (3 mL) subcutaneous pen (Novolog FlexPen U-100 Insulin aspart) 12 unit SC AC Diabetes 06/03/24
insulin glargine 100 unit/mL (3 mL) subcutaneous pen (Lantus Solostar U-100 Insulin) 22 unit SC HS Diabetes 06/03/24
metformin 500 mg tablet 500 mg PO BID Diabetes 06/03/24
--- NOTE | 2024-06-04 14:24 | PTCARENOTE ---
recalcified with neurology on blood pressure goals , and want them to continue to be 140-150 , having difficulty due to her IV access , now has a mid line placed and Levophed continues , she is very tearful , pastoral care to visit
[2024-06-04 14:46] LABS: Cortisol, Random 15.2 ug/dl
--- NOTE | 2024-06-04 14:52 | PTOTSP ---
Speech Therapy Evaluation:
Pt presents with functional oropharyngeal swallow at bedside with no s/sx of aspiration across consistencies. Despite this, risk elevated given acute/subacute CVA. WBC WNL and pt passed 3oz swallow screen. CXR pending. Speech/Language/Cognition
appears WFL, however not formally assessed.
Recommend:
1. Continue regular solids and thin liquids
2. Medications as tolerated
3. General aspiration precautions
4. BARRELHEAD INSPECTOR to f/u x1 to ensure tolerance, monitor clinical presentation (CXR), and determine need for further speech/language/cognitive assessment, however does not appear warranted at this time
--- NOTE | 2024-06-04 14:59 | CHAP ---
Called by ICU staff for Carmela, who has been tearful. She shared some of the burden that she is feeling. Emotional and spiritual support provided, along with assurance of our on-going availability.
--- NOTE | 2024-06-04 16:19 | CM ---
CM following re: discharge planning.
Reviewed pt's chart, met with pt.
Pt is a 68 year old female, admitted with primary dx of Stroke. Pt is OBS, Edgar letter reviewed, placed on chart, pt has a copy.
Pt reports she lives with a friend and her son 2SH, 2 steps to enter, has supportive son. 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 No DME, VN or SNF history.
PT and OT will evaluate the pt to determine a level of care at discharge.
PCP: Desirae saldana
Pharmacy: [facility]
D/C plan: Awaiting for PT/OT/ ST evaluation and recommendations.
CM will follow with discharge plan updates as hospitalization progresses
[2024-06-04 16:44] LABS: HDL Cholesterol 45 mg/dl; LDL Cholesterol, Calculated 18 mg/dl; Total Cholesterol 87 mg/dl (50-199); Triglyceride 121 mg/dl (10-149); Very Low Density Lipoprotein 24 mg/dl (0-30)
[2024-06-04 17:05] LABS: Glucose - Point of Care 142 mg/dl (70-99)
--- NOTE | 2024-06-04 18:27 | PTCARENOTE ---
pt had CT angio , pt continues on Levophed to keep BP goals , she is anxious and inappropriate behavior at times , she was threatening to leave AMA , she was given lorazepam at 1700
[2024-06-04] MEDS: AFRIN NASAL SPRAY 30 SPRAYS NASAL (19:54)
[2024-06-04] MEDS: TYLENOL 650 MG PO (19:55)
--- NOTE | 2024-06-04 20:13 | PTCARENOTE ---
Assumed care of pt. approx 1900.
AAO, no neurological deficits noted, focally intact. Ambulating appropriately.
Norepi remains on to maintain CPP goal of SBP 140-150. See titration flowsheet for details.
Plan of care explained to patient and daughter bedside.
[2024-06-04] MEDS: CRESTOR 40 MG PO (21:03)
[2024-06-04] MEDS: DILAUDID 0.25 MG IV (21:03)
[2024-06-04] MEDS: LANTUS 0.22 UNITS SC (21:04)
[2024-06-04 21:31] LABS: Glucose - Point of Care 180 mg/dl (70-99)
[2024-06-05] VITALS (38 sets, daily range): BP systolic 78–167; BP diastolic 59–131; PULSE 90; BMI 38.4
[2024-06-05] MEDS: NSS 1000 IV (00:59)
[2024-06-05] MEDS: LEVOPHED 250 IV ×2 (00:59→08:26)
[2024-06-05] MEDS: ATIVAN 0.5 MG PO ×2 (03:55→21:12)
[2024-06-05 04:21] LABS: Hematocrit 31.1 % (37.0-47.0); Hemoglobin 10.4 g/dL (12.0-16.0); Mean Corp Hgb Conc. 33.4 g/dL (33.0-37.0); Mean Corpuscular Hgb 27.8 pg (27.0-31.0); Mean Corpuscular Volume 83.2 fL (81.0-99.0); Mean Platelet Volume 10.2 fL (7.4-10.4); Platelet Count 171 10^3/uL (130-400); Red Blood Cell Count 3.74 10^6/uL (4.20-5.40); Red Cell Dist. Width 17.2 % (11.5-14.5); White Blood Cell Count 8.5 10^3/uL (4.8-10.8)
[2024-06-05 04:35] LABS: Blood Urea Nitrogen 14 mg/dl (7-17); Calcium 9.4 mg/dl (8.4-10.2); Carbon Dioxide 24 mmol/L (22-30); Chloride 107 mmol/L (98-107); Estimated Creatinine Clearance 61 ml/min; Glucose 189 mg/dl (70-99); Magnesium 1.9 mg/dl (1.6-2.3); Phosphorus 2.8 mg/dl (2.5-4.5); Potassium 3.8 mmol/L (3.5-5.1); Sodium 140 mmol/L (135-145); eGFR > 60.00
--- NOTE | 2024-06-05 05:04 | PTCARENOTE ---
Pt. remains anxious throughout night. PRNs given see MAR.
Frequent need to reorient pt. to keep monitoring devices on.
No further change in assessment.
[2024-06-05 07:58] LABS: Glucose - Point of Care 174 mg/dl (70-99)
[2024-06-05] MEDS: NOVOLOG FLEXPEN-LOW RESISTANCE 1 UNITS SC ×2 (07:58→11:51)
[2024-06-05] MEDS: NOVOLOG FLEXPEN 8 UNITS SC ×3 (07:58→16:25)
[2024-06-05] MEDS: LEXAPRO 10 MG PO (07:59)
[2024-06-05] MEDS: PLAVIX 75 MG PO (07:59)
[2024-06-05] MEDS: PROTONIX 40 MG PO (07:59)
[2024-06-05] MEDS: GLUCOPHAGE 500 MG PO ×2 (07:59→16:25)
[2024-06-05] MEDS: AFRIN NASAL SPRAY 30 SPRAYS NASAL (07:59)
[2024-06-05] MEDS: DESENEX/MITRAZOL/ZEASORB 1 APPLIC TOPICAL ×2 (08:00→21:13)
--- NOTE | 2024-06-05 08:27 | W.PN.INTV ---
Today's Communication / Plan
Recommendations
Vasopressors now off
Back on ASA as of today, Plavix restarted yesterday given recent stent in March 2024
Up OOB as tolerated
Removal of nasal packing per ENT
Echo pending
Carotid ultrasound also pending
Per neurology, okay to resume Eliquis in 1 week if clinically stable with outpatient neurological follow-up
Continue midodrine with goal MAP >65
Now that vasopressors are off, patient is stable for downgrade out of ICU to telemetry. No additional recommendations at this time. Pressure Supervisor/Pulmonary service will now sign off. Please reconsult if there are any additional questions/concerns,
or if patient's respiratory status deteriorates.
Assessment
-
Assessment: 68-year-old obese female former tobacco smoker with a PMHx of CVA (09/2022 + 11/2023), HFpEF, DM type II, hypertension, paroxysmal A-fib on Eliquis, ROSE on CPAP, multivessel CAD with recent JUAN to LAD on 03/23/2024 on Plavix/Eliquis as an
outpatient, history of left orbital floor fracture s/p plate repair (05/2023) with residual numbness (left orbit down to chin) + alcohol use who presented with dizziness, difficulty speaking and left arm weakness. She says it feels similar to her
prior strokes. Left arm weakness is not new but it did worsen, and she had no numbness or tingling. She also has a history of headaches. In the ER she was afebrile to 97.9 �F, pulse rate 78, respiratory rate 15, BP 120/69 and saturating 99% on
room air. CT head showed no acute intracranial abnormality. Initial labs showed creatinine 1.5, calcium 11 and glucose 78. She initially was admitted to telemetry as a TIA given that her initial presenting symptoms resolved by the time she was
being admitted. She was hypotensive with systolic blood pressure dropping into the 70s but remained asymptomatic. Given a fluid bolus. MRI brain on 06/03 showed a punctate acute/subacute infarct in the bilateral parietal lobes and in the
posterolateral right frontal lobe adjacent to the known chronic transcortical infarct with encephalomalacia and gliosis. She ended up needing to be started on Levophed. She also developed a nosebleed from her left nostril, and her blood thinners
were held, ENT was consulted. Given her continued hypotension despite being on Levophed at 8 mcg/min, she was transferred to the ICU for further care and Pressure Supervisor services consulted for additional management/recommendations.
Chronic conditions DIRECTOR CAREER: History of CVA (09/2022 + 11/2023), DM type II, hypertension, paroxysmal A-fib, ROSE on CPAP, MV-CAD s/p JUAN to LAD (03/23/2024) on plavix + Eliquis, former tobacco smoker, HFpEF, history of left orbital floor fracture s/p plate
repair (05/2023) with residual numbness (left orbit down to chin), alcohol use, obesity
Impression:
#Circulatory shock on vasopressors - shock state resolved; was predominantly on levophed to keep BP elevated for optimal brain perfusion
#Epistaxis from left septum s/p packing from ENT on 06/03/24
#Subacute right-MCA CVA with LUE weakness and expressive aphasia (both these Sx have markedly improved)
#Hypokalemia - resolved
#Paroxysmal A-fib on Eliquis currently in NSR
#MV-CAD with recent JUAN to LAD (03/23/2024) on Plavix + Eliquis
#Valvular heart disease with mild MR + mild TR (per TTE from 12/09/2023)
#Moderate�severe concentric LVH
#ROSE on CPAP (had previously seen pulmonary at [facility])
#Obesity (BMI: 38.5) on Ozempic
#Former tobacco smoker
#History of HFpEF
#Alcohol use
#DM type II on insulin
Plan:
- Will stop vasopressors today, which is ok with neurology; initially wanted goal SBP>140 to help perfuse brain given she suffered a watershed stroke, per neurology
- Continue to keep MAP>65
- Midodrine started as she is hypotensive with SBP in 85-95 range at times but remains asymptomatic when BP is this low
- DC IVF
- Hold antihypertensives for now; careful to hold metoprolol for too long as she could go through beta-sil withdrawal and developed rapid A-fib
- HR control with goal <110
- Unclear if there is another process causing her hypotension as her white count is normal, creatinine has improved, TSH is WNL at 2.42, and she remains afebrile
- Re-check echo; UA shows +1 LE but normal WBC --> follow up UCx; CXR from 06/04 shows patchiness in the posterior right middle lobe + left lower lobe with no obvious consolidation, and mild pulmonary vascular congestion
- Random cortisol was 15.2 --> consider co-syntropin stimulation test (defer to hospitalist)
- Continue neurochecks + NIHSS
- Check stat CT head for any change in neurochecks with immediate notification to neurology
- Eventually will resume Plavix + Eliquis, if neurology + cardiology agree
- Need to continue DAPT if possible though given her recent JUAN to her LAD in Mar 2024
- PT/OT
- DECONTAMINATOR saw her yesterday and there was functional oropharyngeal swallow with no signs or symptoms of aspiration across consistencies; regular solids and thin liquids recommended
- Continue with nasal packing in left nare as per ENT
- ENT will remove packing likely tomorrow
- Per ENT, no need for antibiotics to prevent TSS
- Pt was resumed on Plavix on 06/04 given her recent JUAN to LAD; last dose of Eliquis on 06/03/2024; ASA started today (06/05)
- Trend H/H and transfuse if needed to keep Hb>7-8g/dL; keep plt>50k; INR was 1.12 with fibrinogen 388 on 06/03/2024
- Maintain SpO2 >90-94% using supplemental O2 as needed
- She uses CPAP at night, however in the setting of her active nosebleed with packing in her left nare, unable to use CPAP for now until her nosebleed has resolved and packing has been removed
- She had previously followed with pulmonary at [facility], and she should follow-up with them again after discharge; [facility] office information provided in case she wishes to switch to us
- prn nebulized bronchodilators - not currently bronchospastic
- Incentive spirometer encouraged 10x per hour for at least 4 hrs a day
- CXR from 06/04 shows mild pulmonary vascular congestion, and on CTA head/neck, her pulmonary artery appears distended. She does take Lasix at home which is currently on hold due to increasing Levophed requirements; echo pending; despite
hypotension and possible heart failure, her oxygen requirements remain good and she is on room air saturating 97-98%
- Replete electrolytes with K>4, Mg>2
- Maintain euglycemia with goal BG 140-180 and continue basal�bolus SQ insulin with ISS; last HbA1c: 13.5 on 12/09/2023 � A1c 5.7 from today
- Continue PPI (home med)
- DVT ppx - currently on SCDs given her epistaxis; considering she is now on ASA + Plavix, would hold off on resuming chemical DVT ppx for now; can start this tomorrow if H/H remain stable and epistaxis still resolved
Now that vasopressors are off, patient is stable for downgrade out of ICU to telemetry. No additional recommendations at this time. Pressure Supervisor/Pulmonary service will now sign off. Thank you for allowing us to be involved in the care of this
patient. Please reconsult if there are any additional questions/concerns, or if patient's respiratory status deteriorates.
Data:
MRI brain 06/03/2024: Punctate acute or subacute infarcts in the bilateral parietal lobes and in the posterolateral right frontal lobe adjacent to the known chronic transcortical infarct with encephalomalacia and gliosis.
Total time spent today was 57 minutes for this encounter. Time includes reviewing laboratory test/imaging results, reviewing pertinent medical records, obtaining and reviewing medical history, performing an appropriate exam, ordering medications,
tests and procedures. Time also includes documentation of this encounter, coordinating patient care and communicating with other healthcare professionals. Total time does not include separately billed tests performed on this date of service.
Subjective Dataa
Subjective Data
Date of Service:
Date of Service: June 05, 2024
Chief Complaint: Pressure Supervisor Follow Up
Subjective:
Patient was seen and evaluated today at bedside. BP 133/95, heart rate 96 and saturating 98% on room air. She is not as anxious as she was yesterday. Still very eager to go home and get the packing out of her left side of the nose. She says when
she gets her temperature taken she cannot breathe. She does not have any nosebleeding from the right nare or from the back of her throat that she can feel. No issues overnight. Currently, Levophed is at 18 mcg/min to try to get blood pressure to
the goals dictated by neurology. Patient currently denies THORPE, left arm weakness, nausea, fevers or chills.
Review of Systems
General: Other (Negative unless mentioned above)
Objective Data
Data Reviewed
Vital Signs / I&O / Oxygen:
Vital Signs
Temp Pulse Resp BP Pulse Ox
97.8 F 90 16 97/76 98
06/05/24 07:00 06/05/24 08:30 06/05/24 08:30 06/05/24 08:30 06/04/24 20:11
Intake and Output
06/04/24 06/05/24 06/06/24
06:59 06:59 06:59
Intake Total 1946.6 / 2076.6 3891.0 / 3951.0 441.4 / 441.4
Output Total 1100 / 1100
Balance 846.6 / 976.6 3891.0 / 3951.0 441.4 / 441.4
SaO2 98
Nasal Cannula flow liters per 2
minute
Physical Exam
General: Respiratory Distress (negative), Chills (negative), Sweats (negative) and Other (Appears uncomfortable from the packing in her left nare)
HEENT: Normocephalic and Anicteric
Cardiovascular: S1-S2, Murmur (LINDSAY heard across precordium) and Peripheral Edema (negative)
Respiratory: Clear, Wheeze (negative), Crackles (negative), Rhonchi (negative) and Non-Labored Respirations
GI: Soft, Distended (Abdominal obesity), Non Tender and Normal Bowel Sounds
Neurology: AO x 3, Tremors (negative) and Other (Able to lift both upper extremities antigravity; moving all 4 extremities voluntarily)
Skin: Warm and Dry
Labs/Micro/Reports
Lab Data
06/05/24 04:00
06/05/24 04:00
--- NOTE | 2024-06-05 08:39 | W.PN.CARDCBS ---
Today's Communication / Plan
-
Aspirin and Plavix for 1 week and then switch to Plavix plus Eliquis
Appreciate neurologic recommendations
Remains in sinus rhythm
Will follow with you
Impression / Plan
-
PCP: Dr. Ty
Cardiology: Dr. Brooks
Impression:
Presented with L sided weakness
Subacute right MCA CVA
Epistaxis requiring nasal packing
CAD
s/p PCI of proximal LAD 03/23/2024
h/o left hemispheric CVA treated at [facility] 09/2022
Paroxysmal Afib
s/p Biotronik ILR at [facility] 09/2022
GIB treated at [facility] 10/2022
unremarkable upper endoscopy, never completed colonoscopy due to anesthesias concerns over recent stroke
DM 2
HTN
Hyperlipidemia
Former smoker
Possible h/o hypertrophic CM
Echo 12/09/2023: EF > 75%, moderate to severe concentric LVH, mild MR, mild TR, estimated PAP 23 mmHg
LHC 03/23/2024: LM: Mild distal tapering. LAD: Proximal LAD has a hazy calcified 70 to 80% stenosis just proximal to the takeoff of D1. Mid to distal LAD has diffuse mild to moderate atherosclerotic plaque. LCx: Moderate to severe atherosclerotic
plaque proximal to a small left posterolateral branch. Otherwise mild diffuse atherosclerotic plaque. RCA: 30 to 40% tubular stenosis in the proximal RCA. Angioplasty: Successful PCI of proximal LAD stenosis with a 3.0 x 15 mm [employer] Shen JUAN.
Plan:
-Presented with left-sided weakness. Found to have subacute right MCA CVA. Eliquis placed on hold by neurology and placed on aspirin and Plavix.
-Then developed epistaxis 06/03 and required nasal packing. Plavix placed on hold, but resumed in a.m. 06/04/2024. No recurrent bleeding noted overnight.
-For now we have her on aspirin and Plavix as per neurologic recommendations. Neurology note recommends resuming Eliquis in 1 week and I would recommend at that time switching to Plavix plus Eliquis
-Hypotension noted. Amlodipine, metoprolol, and Lasix remain on hold and can resume as soon as safe once blood pressures improve
-Keep electrolytes repleted. She currently remains in sinus rhythm
-Remains in SR on review of ECG from 06/02 and no arrhythmias noted on tele. Does have ILR implanted
-Continue Crestor
-Will arrange cardiology follow-up
HPI: Carmela is a 68-year-old female with past medical history of CAD with recent PCI of the LAD 03/23/2024, prior CVA, paroxysmal A-fib, GI bleed in 2022, DM 2, hypertension, hyperlipidemia, former tobacco abuse, and possible history of hypertrophic
CM. She presented to ER for evaluation of left-sided weakness that was transient. Symptoms resolved while in ER. She was admitted for further workup and evaluation. MRI of brain showed punctate acute or subacute infarcts in the bilateral
parietal lobes and in the posterior lateral right frontal lobe. Neurology evaluated patient and Eliquis placed on hold. She was placed on aspirin and Plavix and Lasix, amlodipine, and Toprol were held due to hypotension. She was placed on
Levophed for BP support. She then developed significant epistaxis in the afternoon/evening 06/03. Plavix also placed on hold. ENT consulted and nasal packing placed. Cardiology consulted given history of A-fib and recent stenting now with
significant epistaxis requiring both Eliquis and Plavix to be held. She has no current cardiac complaints, but notes significant anxiety and is upset about being admitted over the holiday.
Progress Note - Legal Recovery Specialist
Subjective
Date of Service: June 05, 2024
Sleepy today
Objective
Labs:
06/05/24 04:00
06/05/24 04:00
Labs
Hgb 10.4 g/dL (12.0-16.0) L 06/05/24 04:00
Hct 31.1 % (37.0-47.0) L 06/05/24 04:00
Plt Count 171 10^3/uL (130-400) 06/05/24 04:00
PT 14.7 Sec (11.4-14.6) H 06/03/24 17:58
INR 1.12 06/03/24 17:58
APTT 31.0 Sec (23.4-35.0) 06/03/24 17:58
Sodium 140 mmol/L (135-145) 06/05/24 04:00
Potassium 3.8 mmol/L (3.5-5.1) 06/05/24 04:00
BUN 14 mg/dl (7-17) 06/05/24 04:00
Creatinine 1.0 mg/dL (0.6-1.0) 06/05/24 04:00
Glucose 189 mg/dl (70-99) H 06/05/24 04:00
Vital Signs and I&O:
Vital Signs
Temp Pulse Resp BP Pulse Ox
98 F 90 16 97/76 98
06/05/24 03:32 06/05/24 08:30 06/05/24 08:30 06/05/24 08:30 06/04/24 20:11
Vital Signs
Temp Pulse Resp BP Pulse Ox
98 F 90 16 97/76 98
06/05/24 03:32 06/05/24 08:30 06/05/24 08:30 06/05/24 08:30 06/04/24 20:11
Intake & Output
06/03/24 06/04/24 06/05/24 06/06/24
06:59 06:59 06:59 06:59
Intake Total 1946.6 / 2076.6 3891.0 / 3951.0 375.7 / 375.7
Output Total 1100 / 1100
Balance 846.6 / 976.6 3891.0 / 3951.0 375.7 / 375.7
Physical Exam
Physical Exam
����Physical Exam
���������������������General:��no apparent distress, not acutely ill
���������������������������Neck:��supple. no meningeal signs. normal psoterior pharynx
������������������������
���������������������������Heart:��s1/s2 regular rate and rhythm, no murmur. equal radial pulses.
��������������������������Lungs: ��no acute respiratory distress. clear bilaterally
����������������������Abdomen:�normal bowel sounds. not tender. no CVAT
��������������������������Neuro:��alert and oriented. no focal neurological deficits
������������������������������Skin: ��no rash
�����������������������Psychiatric:�well kept. interactive and cooperative
�����������������������Extremities:��no edema. no calf tenderness. negative homans. good distal pulses
��
�
--- NOTE | 2024-06-05 09:09 | W.PN.HOSP.TC ---
Today's Communication/Plan
-
Add midodrine and wean Levophed if no further indication from neurology.
Continue with Plavix.
Assessment / Plan
Assessment / Plan
IMPRESSION:
68-year-old female with multiple comorbidities including CAD status post recent stent in March, atrial fibrillation on anticoagulation with Eliquis, hypertension, CHF with preserved EF, GERD, ROSE on CPAP, history of CVA presenting to the
Emergency Department with approximately 1 day of left-sided weakness mostly affecting the left upper extremity. She reports that the weakness has now resolved. CT of her head is negative. She has no other focal neurological deficits. She has
been compliant with her medications including the anticoagulation Eliquis and Plavix for her PCI. She is hemodynamically stable with blood pressure slightly low at 102/70, globin was 13.5 electrolytes were normal. She has mild elevation in
creatinine to 1.5. She denies any urinary symptoms.
PLAN:
Acute cerebral ischemic infarcts -transient left lower upper extremity and lower extremity weakness. Now completely resolved.
- MRI brain shows Punctate acute or subacute infarcts in the bilateral parietal lobes and in the posterolateral right frontal lobe adjacent to the known chronic transcortical infarct with encephalomalacia and gliosis.
- Sounds embolic. Patient states that she is compliant with her medication.
- Concern also was from raised about watershed area infarcts especially with prior history of intracranial stenosis and recommendation was to keep the blood pressure up and admission-patient started on IV vasopressors to keep the blood pressure high
in the setting of acute stroke-and has been 48 hours since admission and no neurological symptoms. Considered to wean the vasopressors if okay with neurology. Start on midodrine.
-CT angiogram this time shows atherosclerosis but no middle cerebral artery stenosis, thrombus, occlusion or aneurysm. No anterior cerebral artery occlusions. The P1 segment of the left posterior cerebral artery is hypoplastic probably
developmental variant. No significant stenosis in the posterior cerebral artery. There is mild to moderate plaque in the ICA arteries, but no significant stenosis in ICA. With the current available information with no stenotic lesions unclear if
this is a watershed infarct. Will discuss with radiology if her infarcts are in the watershed area.
-Neurology following.
- Continue with Plavix
- Resume Eliquis when okay from neurology
Acute left nostril epistaxis-status post cautery and packing. Seems to stopped. Holding Eliquis. Patient needs a Plavix with coronary stent placement from March of this year. Communicated this with ENT yesterday. Patient on Plavix without
any recurrence of epistaxis. Resume Eliquis when okay from ENT standpoint as well.
LAWRENCE -no extrarenal losses unclear if medication related. Improved creatinine to 1 point open with IV fluids and holding Lasix.Significantly elevated LVEDP at 30 mmHg on cath from March 2024. Appreciate cardiology input. Continue to hold
diuretics.
DM II
- lantus 22 hs
- aspart 12 units tidac at home, continue with 8 units here
- sliding scale insulin
-Hold metformin 1000 bid due to CTA
-no hypoglycemia
- Await hemoglobin A1c.
CAD - No CP
- continue plavix, and statin
- continue metoprolol succinate 50 daily
AFIB - NSR
- Hold apixaban due to epistaxis/acute cerebral infarct
- metoprolol
Primary hypertension-hold amlodipine.
Drop in H&H noted no external bleeding. Unclear if dilutional. Continue to follow.
ROSE
- oxygen prn
DVT PPX - on apixaban
Code Status - Full Code
DW RN
Total time spent on today's encounter was 52 minutes which included time spent in counseling the patient/family regarding diagnosis and treatment plan as listed above, goals of care, and symptom management. Case was discussed with nursing staff,
specialists, and care coordinators/case management. All labs and imaging personally reviewed by me. Remainder the time spent in detailed review of previous records, lab data, imaging, and other medical provider documentation.
Anticipated Discharge: > 48 hours
Subjective/Interval History
-
Date of Service: June 05, 2024
No further recurrence of symptoms of weakness on the left side. No headache.
No further epistaxis. Left nostril packing in place.
Patient is more composed today.
Denies any dizziness.
No nausea vomiting. Good appetite. No diarrhea.
Objective Data
-
Labs:
Laboratory Results
06/05/24
04:00
WBC 8.5
Hgb 10.4 L
Hct 31.1 L
Plt Count 171
Sodium 140
Potassium 3.8
Chloride 107
Carbon Dioxide 24
BUN 14
Creatinine 1.0
Glucose 189 H
Calcium 9.4
Vital Signs:
Vital Signs
Temp Pulse Resp BP Pulse Ox
98 F 90 16 97/76 98
06/05/24 03:32 06/05/24 08:30 06/05/24 08:30 06/05/24 08:30 06/04/24 20:11
I&O
06/04/24 06/05/24 06/06/24
06:59 06:59 06:59
Intake Total 1945.6 / 2075.6 3891.0 / 3951.0 375.7 / 375.7
Output Total 1100 / 1100
Balance 846.6 / 976.6 3891.0 / 3951.0 375.7 / 375.7
Review of Systems
-
Constitutional: Denies Fever or Chills
EENT: Denies Sore Throat
Respiratory: Denies Cough
Physical Exam
-
General: No Apparent Distress
HEENT: Moist Mucous Membranes
Respiratory: Clear to Auscultation and Non Labored Respirations; Negative Accessory Resp Muscle Use
Cardiac: S1/S2 and Irregular Rhythm; Negative Tachycardic
GI: Soft
Neuro: AO x 3 and No Motor Deficits; Negative Slurred Speech or Facial Droop
Psych: Calm; Negative Confused
Data Reviewed
-
Labs: Labs Reviewed by me
[2024-06-05 09:42] LABS: Glycohemoglobin (HgbA1c) 5.7 % (4.0-5.6)
--- NOTE | 2024-06-05 10:28 | W.PN.NEURO.1 ---
Today's Communication / Plan
-
.
Subjective/Objective
Subjective Data
Date of Service: June 05, 2024
Neurology follow-up note
Ms. Boswell is eager to go home. No reports of headache, change in vision, strength and sensation.
Brain MRI wo odalis(06/03/2024) an acute bilateral parietal right more than left acute infarcts.
CTA of the head/neck-no evidence of hemodynamically significant stenosis
Hemoglobin A1c�5.7.
PMH: PA Fib, R MCA/L LOUIE/?[employer] stroke(11/2023), R M2 focal dissection/ pseudoaneurysm, DM, BMI 38, HTN, DLP, ROSE, congenital long QT syndrome
PSH: ILR, tonsillectomy, RYNE, L cataract surgery
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
FH: father-lung cancer, mother-multiple myeloma
All:ACEIs
ROS:Constitutional: Negative. Negative for chills, fever and unexpected weight change.
HENT: Negative for ear pain, hearing loss, tinnitus and trouble swallowing.
Eyes: Negative. Negative for photophobia, pain and visual disturbance.
Respiratory: Negative for cough, choking and shortness of breath.
Cardiovascular: Negative for chest pain, palpitations and leg swelling.
Gastrointestinal: Negative for abdominal pain and vomiting.
Endocrine: Negative. Negative for cold intolerance.
Genitourinary: Negative for dysuria, flank pain and urgency.
Musculoskeletal: Negative for back pain, gait problem, neck pain and neck stiffness.
Skin: Negative for rash.
Allergic/Immunologic: Negative. Negative for immunocompromised state.
Neurological: positive for imbalance, chronic distal paresthesias, transient left arm weakness and numbness
General: Well developed. In no acute distress.
Cardio: Regular rate and rhythm without murmur. Extremities are without cyanosis or edema.
Neuro:
Mental Status: Alert, oriented to person, place, and date. Normal attention and recall. Good fund of knowledge. Follows complex requests across the midline. Comprehension, naming, and repetition intact.
Cranial Nerves: . Pupils are equally round and reactive to light. EOMs full. L>R orbital fissure. Visual rivera full to confrontation. No ptosis. No nystagmus. V1-V3 intact to light touch and pinprick bilaterally, symmetric. Face symmetric.
Normal hearing AU. The palate elevated well. SCMs and traps 5/5. Tongue midline. No dysarthria.
Motor: No pronator or arm drift. Strength 5/5 throughout. No clonus.
Coordination: No dysmetria or tremor. Normal fine finger movements.
Gait: Deferred
Assessment and Plan:
I. Bilateral MCA territory subcortical infarcts. Likely etiology�hypoperfusion in settings of hypotension.
II. 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
III. Uncontrolled DM
IV. PA A-Fib
V. Hypotension
-Fall precautions
-Blood pressure goal�normotension
-Continue rosuvastatin 40 mg nightly
-Continue aspirin 81 mg once a day Plavix 75 mg once a day
-Stop Plavix and aspirin and restart Eliquis in 1 week if clinically stable.
-Please recall neurology services any questions or concerns
- Outpatient neurology follow-up
I personally reviewed all radiology and labs along with past medical records pertinent to current medical problems. Total time spent in patient care is 35 minutes.
Thank you for allowing us to participate in the care of this patient. Please do not hesitate to contact us with any questions or concerns.
Objective Data
Vital Signs
Temp Pulse Resp BP Pulse Ox
36.6 C 90 16 97/76 98
06/05/24 07:00 06/05/24 08:30 06/05/24 08:30 06/05/24 08:30 06/04/24 20:11
Lab Results
06/05/24 04:00
06/05/24 04:00
PT 14.7 Sec (11.4-14.6) H 06/03/24 17:58
INR 1.12 06/03/24 17:58
APTT 31.0 Sec (23.4-35.0) 06/03/24 17:58
Sodium 140 mmol/L (135-145) 06/05/24 04:00
Potassium 3.8 mmol/L (3.5-5.1) 06/05/24 04:00
BUN 14 mg/dl (7-17) 06/05/24 04:00
Glucose 189 mg/dl (70-99) H 06/05/24 04:00
Calcium 9.4 mg/dl (8.4-10.2) 06/05/24 04:00
Phosphorus 2.8 mg/dl (2.5-4.5) 06/05/24 04:00
LDL Cholesterol, Calc 18 mg/dl 06/04/24 16:14
Patient Allergies
lisinopril Allergy (Verified 01/04/24 11:44)
Itching
Vital Signs and Labs
-
Vital Signs and Labs:
Vital Signs
Temp Pulse Resp BP Pulse Ox
36.6 C 90 16 97/76 98
06/05/24 07:00 06/05/24 08:30 06/05/24 08:30 06/05/24 08:30 06/04/24 20:11
Lab Results
06/05/24 04:00
06/05/24 04:00
PT 14.7 Sec (11.4-14.6) H 06/03/24 17:58
INR 1.12 06/03/24 17:58
APTT 31.0 Sec (23.4-35.0) 06/03/24 17:58
Sodium 140 mmol/L (135-145) 06/05/24 04:00
Potassium 3.8 mmol/L (3.5-5.1) 06/05/24 04:00
BUN 14 mg/dl (7-17) 06/05/24 04:00
Glucose 189 mg/dl (70-99) H 06/05/24 04:00
Calcium 9.4 mg/dl (8.4-10.2) 06/05/24 04:00
Phosphorus 2.8 mg/dl (2.5-4.5) 06/05/24 04:00
LDL Cholesterol, Calc 18 mg/dl 06/04/24 16:14
Medications
-
Medications:
Generic Name Dose Route Start Last Admin
Trade Name Freq PRN Reason Stop Dose Admin
Acetaminophen 650 mg 06/03/24 07:42 06/04/24 19:55
Acetaminophen 325 Mg Tablet PO 07/01/24 07:41 650 mg
Q4HPRN PRN Administration
mild pain/THORPE/temp> 100.4F
Amlodipine Besylate 2.5 mg 06/03/24 08:00 06/03/24 09:09
Amlodipine 2.5 Mg Tablet PO 07/01/24 07:59 Not Given
DAILY KARTIK
Aspirin 81 mg 06/05/24 09:00
Aspirin 81 Mg Chewable Tablet PO 07/03/24 08:59
DAILY KARTIK
Bisacodyl 10 mg 06/03/24 07:43
Bisacodyl 10 Mg Rectal Suppository RECTAL 07/01/24 07:42
[id number] PRN
constipation
Clopidogrel Bisulfate 75 mg 06/04/24 10:00 06/05/24 07:59
Clopidogrel 75 Mg Tablet PO 07/02/24 09:59 75 mg
DAILY KARTIK Administration
Escitalopram Oxalate 10 mg 06/04/24 10:00 06/05/24 07:59
Escitalopram 10 Mg Tablet PO 07/02/24 09:59 10 mg
DAILY KARTIK Administration
Furosemide 40 mg 06/03/24 08:00 06/03/24 09:09
Furosemide 20 Mg Tablet PO 07/01/24 07:59 Not Given
BID KARTIK
Hydromorphone HCl 0.25 mg 06/04/24 20:54 06/04/24 21:03
Hydromorphone 0.25 Mg/0.5 Ml Syringe IV 06/18/24 20:53 0.25 mg
Q4HPRN PRN Administration
moderate pain
Insulin Glargine 22 units/ 0.22 mls @ 0 mls/hr 06/03/24 22:00 06/04/24 21:04
Device SC 07/01/24 21:59 0.22 mls
HS KARTIK Administration
As Directed
Norepinephrine Bitartrate 4 mg in 250 mls @ 0 mls/hr 06/03/24 16:15 06/05/24 08:26
Levophed IV 250 mls
PER PROTOCOL KARTIK Administration
Protocol
Per Protocol
Insulin Aspart 8 units 06/03/24 07:30 06/05/24 07:58
Insulin Aspart (100 Units/Ml) 3 Ml Flexpen SC 07/01/24 07:29 8 units
AC KARTIK Administration
Insulin Aspart 0 units 06/03/24 07:30 06/05/24 07:58
Insulin Aspart Low Resistance 300 Units/3 Ml Pen.Injctr SC 07/01/24 07:29 1 units
AC KARTIK Administration
Protocol
Lorazepam 0.5 mg 06/04/24 09:28 06/05/24 03:55
Lorazepam 0.5 Mg Tablet PO 07/02/24 09:27 0.5 mg
Q4HPRN PRN Administration
anxiety
Meclizine HCl 12.5 mg 06/03/24 06:49
Meclizine 12.5 Mg Tablet PO 07/01/24 06:48
TID PRN
dizziness
Metformin HCl 500 mg 06/03/24 08:00 06/05/24 07:59
Metformin 500 Mg Regular Release Tablet PO 07/01/24 07:59 500 mg
BID@0800,1700 KARTIK Administration
Metoprolol Succinate 50 mg 06/03/24 08:00 06/03/24 09:09
Metoprolol 25 Mg Extended Release Tablet PO 07/01/24 07:59 Not Given
DAILY KARTIK
Miconazole Nitrate 0 applic 06/03/24 20:00 06/05/24 08:00
Miconazole Powder Bottle TOPICAL 07/01/24 19:59 1 applic
BID KARTIK Administration
Midodrine 5 mg 06/05/24 13:00
Midodrine 5 Mg Tablet PO 07/03/24 12:59
TID@0800,1300,1800 KARTIK
Oxymetazoline HCl 0 sprays 06/03/24 18:00 06/05/24 07:59
Oxymetazoline 0.05% (Nasal Ajo) 15 Ml Bottle NASAL 07/01/24 17:59 30 sprays
BID KARTIK Administration
Pantoprazole Sodium 40 mg 06/03/24 08:00 06/05/24 07:59
Pantoprazole 40 Mg Delayed Release Tablet PO 07/01/24 07:59 40 mg
DAILY KARTIK Administration
Polyethylene Glycol 17 grams 06/03/24 07:46
Polyethylene Glycol Powder 17 Grams Packet PO 07/01/24 07:45
DAILYPRN PRN
constipation
Rosuvastatin Calcium 40 mg 06/03/24 22:00 06/04/24 21:03
Rosuvastatin (Crestor) 40 Mg Tablet PO 07/01/24 21:59 40 mg
HS KARTIK Administration
Senna/Docusate Sodium 1 tablet 06/03/24 06:49
Docusate W/Senna (Loyda-Colace) Tablet PO 07/01/24 06:48
BIDPRN PRN
constipation
Sodium Chloride 0 flush 06/03/24 03:00
Sodium Chloride 0.9% (Flush) Syringe IV 07/01/24 02:59
PER PROTOCOL KARTIK
Home Medications
-
Home Medications
lpwiymjznag-zue-phmqjhgto-vitC capsule (Glucosamine Complex-MSM capsule) 1 cap PO BID Supplement 12/08/23
losartan 50 mg tablet 25 mg PO HS Heart Failure 12/08/23
rosuvastatin 40 mg tablet 40 mg PO HS High Cholesterol 12/08/23
pantoprazole 40 mg tablet,delayed release (Protonix) 40 mg PO DAILY #30 tabs 12/11/23
amlodipine 2.5 mg tablet 2.5 mg PO DAILY Blood Pressure 03/23/24
clopidogrel 75 mg tablet 75 mg PO DAILY #90 tabs 03/23/24
escitalopram oxalate 10 mg tablet 10 mg PO DAILY Mental Health/Anxiety 03/23/24
furosemide 20 mg tablet 40 mg (2 x 20 mg) PO BID Fluid Retention/Swelling #0 tabs 03/23/24
metoprolol succinate 25 mg tablet,extended release 24 hr 25 mg PO DAILY Heart Failure 03/23/24
multivitamin 1 tab PO DAILY Supplement 03/23/24
potassium chloride 10 mEq tablet,extended release 10 meq PO Q48H Electrolyte Repletion 03/23/24
semaglutide 0.25 mg or 0.5 mg (2 mg/1.5 mL) subcutaneous pen injector (Ozempic) 0.5 mg SC TH Diabetes 03/23/24
apixaban 5 mg tablet (Eliquis) 5 mg PO BID Blood Clot Prevention/Tx 06/03/24
insulin aspart U-100 100 unit/mL (3 mL) subcutaneous pen (Novolog FlexPen U-100 Insulin aspart) 12 unit SC AC Diabetes 06/03/24
insulin glargine 100 unit/mL (3 mL) subcutaneous pen (Lantus Solostar U-100 Insulin) 22 unit SC HS Diabetes 06/03/24
metformin 500 mg tablet 500 mg PO BID Diabetes 06/03/24
[2024-06-05] MEDS: ProAmatine 5 MG PO ×3 (10:35→17:24)
[2024-06-05] MEDS: LOW STRENGTH ASPIRIN 81 MG PO (10:36)
--- NOTE | 2024-06-05 10:47 | PTCARENOTE ---
pt awake and alert, NIHSS 0 , drowsy this am , NSR with PVCs , she is currently on 10mcg of Levophed for goal of BP , she was given midodrine to keep her BP up to goal , pt less anxious than yesterday , tolerating diet
[2024-06-05 11:39] LABS: Glucose - Point of Care 190 mg/dl (70-99)
--- NOTE | 2024-06-05 14:29 | PTCARENOTE ---
pt off of levophed since 1200 , no longer needs for higher blood pressure as per neurology , she is drowsy and less anxious today
[2024-06-05] MEDS: NOVOLOG FLEXPEN-LOW RESISTANCE SC (16:25)
[2024-06-05 16:36] LABS: Glucose - Point of Care 117 mg/dl (70-99)
--- NOTE | 2024-06-05 18:12 | PTCARENOTE ---
pt now telemetry status
[2024-06-05] MEDS: CRESTOR 40 MG PO (21:13)
[2024-06-05] MEDS: AFRIN NASAL SPRAY 1 SPRAYS NASAL (21:13)
[2024-06-05] MEDS: LANTUS 0.22 UNITS SC (21:14)
[2024-06-05 21:49] LABS: Glucose - Point of Care 85 mg/dl (70-99)
[2024-06-06] MEDS: ATIVAN 0.5 MG PO (01:19)
[2024-06-06 05:32] LABS: Hematocrit 29.1 % (37.0-47.0); Hemoglobin 9.6 g/dL (12.0-16.0); Mean Corpuscular Hgb 28.1 pg (27.0-31.0); Mean Corpuscular Volume 85.1 fL (81.0-99.0); Mean Platelet Volume 10.3 fL (7.4-10.4); Platelet Count 148 10^3/uL (130-400); Red Blood Cell Count 3.42 10^6/uL (4.20-5.40); Red Cell Dist. Width 17.4 % (11.5-14.5)
[2024-06-06 06:00] VITALS: BMI 38.3
[2024-06-06 07:48] VITALS: BP 102/66
[2024-06-06 08:00] VITALS: BP 126/90
[2024-06-06 08:08] LABS: Glucose - Point of Care 111 mg/dl (70-99)
--- NOTE | 2024-06-06 08:45 | PTCARENOTE ---
Pt rec'd from night RN 07:15, AOx3, no complaints, anxious to go home. NIHSS remains 0, VSS, meds and assessment as documented. Plan disucssed with Dr. Agarwal at bedside, hopefully will dc pt after Echo and US today. Nasal packing removed by ENT this
am, no sign of epistaxis as of now. Pt seated in chair, ambulating PRN. Call aguillon in reach.
--- NOTE | 2024-06-06 08:55 | W.PN.ENT ---
Today's Communication
-
L mid-septal epistaxis controlled.
Will order nasal saline spray.
pt instructed to avoid nose blowing, heavy lifting.
Should have humidifier for CPAP at home.
Call us for any further bleeding.
Impression / Plan
-
L mid-septal epistaxis controlled.
Will order nasal saline spray.
pt instructed to avoid nose blowing, heavy lifting.
Should have humidifier for CPAP at home.
Call us for any further bleeding.
Subjective Data
-
no further epistaxis
Objective Data
-
Vital Signs
Temp Pulse Resp BP Pulse Ox
98.6 F 86 16 124/75 98
06/06/24 07:06 06/06/24 06:00 06/05/24 17:30 06/05/24 22:44 06/05/24 19:16
Intake & Output
06/05/24 06/06/24 06/07/24
06:59 06:59 06:59
Intake:
Oral fluids 1050 / 1050 500 / 500
IV fluids (Total) 2841.0 / 2901.0 324.6 / 324.6
Levophed 841.0 / 901.0 324.6 / 324.6
Nss 1,000 ml @ 100 mls/hr IV . 1999
Q10H [facility] Rx#:[id number]
IV piggybacks 0 / 0
Other:
Number of approximated MODERATE 1 1
amounts of urine
Number of approximated LARGE 1
amounts of urine
Lab Results
06/06/24 05:17
06/05/24 04:00
PT 14.7 Sec (11.4-14.6) H 06/03/24 17:58
INR 1.12 06/03/24 17:58
APTT 31.0 Sec (23.4-35.0) 06/03/24 17:58
Calcium 9.4 mg/dl (8.4-10.2) 06/05/24 04:00
Phosphorus 2.8 mg/dl (2.5-4.5) 06/05/24 04:00
Magnesium 1.9 mg/dl (1.6-2.3) 06/05/24 04:00
Total Bilirubin 0.8 mg/dl (0.2-1.3) 06/02/24 22:23
AST 35 U/L (14-36) 06/02/24 22:23
ALT 30 U/L (0-35) 06/02/24 22:23
Alkaline Phosphatase 62 U/L (38-126) 06/02/24 22:23
Triglycerides 121 mg/dl (10-149) 06/04/24 16:14
LDL Cholesterol, Calc 18 mg/dl 06/04/24 16:14
VLDL Cholesterol, Calc 24 mg/dl (0-30) 06/04/24 16:14
HDL Cholesterol 45 mg/dl 06/04/24 16:14
TSH 2.42 uIU/ml (0.47-4.68) 06/04/24 03:58
Physical Exam
-
L nasal packing removed. no bleeding. R septal deviation.
[2024-06-06] MEDS: AFRIN NASAL SPRAY 1 SPRAYS NASAL (08:59)
[2024-06-06] MEDS: PROTONIX 40 MG PO (08:59)
[2024-06-06] MEDS: LEXAPRO 10 MG PO (08:59)
[2024-06-06] MEDS: GLUCOPHAGE 500 MG PO (08:59)
[2024-06-06] MEDS: PLAVIX 75 MG PO (08:59)
[2024-06-06] MEDS: ProAmatine 5 MG PO (08:59)
[2024-06-06] MEDS: LOW STRENGTH ASPIRIN 81 MG PO (08:59)
[2024-06-06] MEDS: DESENEX/MITRAZOL/ZEASORB 1 APPLIC TOPICAL (09:00)
[2024-06-06] MEDS: NOVOLOG FLEXPEN 8 UNITS SC ×2 (09:01→11:54)
[2024-06-06] MEDS: NOVOLOG FLEXPEN-LOW RESISTANCE SC ×2 (09:02→11:55)
--- NOTE | 2024-06-06 09:06 | W.PN.CARDCBS ---
Today's Communication / Plan
-
Continue to follow nasal exam. ENT following. Hemoglobin at 9.6.
Continue aspirin and Plavix for in 1 week and then switch back to Eliquis and Plavix.
Blood pressure remains marginal on midodrine. Hopefully can wean off midodrine today and restart metoprolol, and furosemide. Will hold off on amlodipine.
For echocardiogram today.
Impression / Plan
-
PCP: Dr. Ty
Cardiology: Dr. Brooks
Impression:
Presented with L sided weakness
Subacute right MCA CVA
Epistaxis requiring nasal packing
CAD
s/p PCI of proximal LAD 03/23/2024
h/o left hemispheric CVA treated at [facility] 09/2022
Paroxysmal Afib
s/p Biotronik ILR at [facility] 09/2022
GIB treated at [facility] 10/2022
unremarkable upper endoscopy, never completed colonoscopy due to anesthesias concerns over recent stroke
DM 2
HTN
Hyperlipidemia
Former smoker
Possible h/o hypertrophic CM
Echo 12/09/2023: EF > 75%, moderate to severe concentric LVH, mild MR, mild TR, estimated PAP 23 mmHg
LHC 03/23/2024: LM: Mild distal tapering. LAD: Proximal LAD has a hazy calcified 70 to 80% stenosis just proximal to the takeoff of D1. Mid to distal LAD has diffuse mild to moderate atherosclerotic plaque. LCx: Moderate to severe atherosclerotic
plaque proximal to a small left posterolateral branch. Otherwise mild diffuse atherosclerotic plaque. RCA: 30 to 40% tubular stenosis in the proximal RCA. Angioplasty: Successful PCI of proximal LAD stenosis with a 3.0 x 15 mm [employer] [place] JUAN.
Plan:
-Presented with left-sided weakness. Found to have subacute right MCA CVA. Eliquis placed on hold by neurology and placed on aspirin and Plavix.
-Then developed epistaxis 06/03 and required nasal packing. ENT now following.
-For now we have her on aspirin and Plavix as per neurologic recommendations. Neurology note recommends resuming Eliquis in 1 week and I would recommend at that time switching to Plavix plus Eliquis
-Has been hypotensive and on midodrine. Remains off metoprolol, amlodipine, and Lasix. Hopefully can resume metoprolol over next 24 hours.
-Keep electrolytes repleted. She currently remains in sinus rhythm
-Remains in SR on review of ECG from 06/02 and no arrhythmias noted on tele. Does have ILR implanted
-Continue Crestor
- Check echocardiogram
HPI: Carmela is a 68-year-old female with past medical history of CAD with recent PCI of the LAD 03/23/2024, prior CVA, paroxysmal A-fib, GI bleed in 2022, DM 2, hypertension, hyperlipidemia, former tobacco abuse, and possible history of hypertrophic
CM. She presented to ER for evaluation of left-sided weakness that was transient. Symptoms resolved while in ER. She was admitted for further workup and evaluation. MRI of brain showed punctate acute or subacute infarcts in the bilateral
parietal lobes and in the posterior lateral right frontal lobe. Neurology evaluated patient and Eliquis placed on hold. She was placed on aspirin and Plavix and Lasix, amlodipine, and Toprol were held due to hypotension. She was placed on
Levophed for BP support. She then developed significant epistaxis in the afternoon/evening 06/03. Plavix also placed on hold. ENT consulted and nasal packing placed. Cardiology consulted given history of A-fib and recent stenting now with
significant epistaxis requiring both Eliquis and Plavix to be held. She has no current cardiac complaints, but notes significant anxiety and is upset about being admitted over the holiday.
Progress Note - [employer]
Subjective
Date of Service: June 06, 2024
No further nosebleeds. Remains in sinus rhythm.
Objective
Labs:
06/06/24 05:17
06/05/24 04:00
Labs
Hgb 9.6 g/dL (12.0-16.0) L 06/06/24 05:17
Hct 29.1 % (37.0-47.0) L 06/06/24 05:17
Plt Count 148 10^3/uL (130-400) 06/06/24 05:17
PT 14.7 Sec (11.4-14.6) H 06/03/24 17:58
INR 1.12 06/03/24 17:58
APTT 31.0 Sec (23.4-35.0) 06/03/24 17:58
Sodium 140 mmol/L (135-145) 06/05/24 04:00
Potassium 3.8 mmol/L (3.5-5.1) 06/05/24 04:00
BUN 14 mg/dl (7-17) 06/05/24 04:00
Creatinine 1.0 mg/dL (0.6-1.0) 06/05/24 04:00
Glucose 189 mg/dl (70-99) H 06/05/24 04:00
Vital Signs and I&O:
Vital Signs
Temp Pulse Resp BP Pulse Ox
98.6 F 93 16 126/90 98
06/06/24 07:06 06/06/24 08:59 06/05/24 17:30 06/06/24 08:59 06/05/24 19:16
Vital Signs
Temp Pulse Resp BP Pulse Ox
98.6 F 93 16 126/90 98
06/06/24 07:06 06/06/24 08:59 06/05/24 17:30 06/06/24 08:59 06/05/24 19:16
Intake & Output
06/04/24 06/05/24 06/06/24 06/07/24
06:59 06:59 06:59 06:59
Intake Total 1946.6 / 2076.6 3891.0 / 3951.0 824.6 / 824.6
Output Total 1100 / 1100
Balance 846.6 / 976.6 3891.0 / 3951.0 824.6 / 824.6
Physical Exam
Physical Exam
GEN: No distress, awake, Ox3
HEENT: supple, anicteric, mmm, left nare packing
LUNGS: CTA, no wheezes/rales
CV: Reg, S1/S2, 1/6 syst LSB
ABD: soft, BS+, NT/ND
EXT: No edema
NEURO: Gross non-focal
SKIN: No rash
[2024-06-06 11:44] VITALS: BP 129/113
[2024-06-06] MEDS: OCEAN, SALINE MIST 2 SPRAYS NASAL (11:56)
[2024-06-06 12:00] LABS: Glucose - Point of Care 117 mg/dl (70-99)
[2024-06-06 14:23] VITALS: BP 96/63
--- NOTE | 2024-06-06 14:27 | PTCARENOTE ---
Echo done and read. Dr. Agarwal discussing results with cardiology. Pt updated -anxious to go home. Emotional support provided.
--- NOTE | 2024-06-06 15:16 | W.PN.UPDATE ---
Update Note
Progress Note Update
Echo results reviewed w/ patient. She reports no dizziness since starting midodrine yesterday. BP has been improved. She is anxious to go home. Will plan to continue midodrine 5mg TID and restart low dose Toprol 12.5mg daily. She will follow BPs at
home and will call the cardiology office if she has any hypotension or dizziness. Continue to hold amlodipine, lasix, and losartan for now. Should follow her weights at home and call if she gains 3lbs overnight or 5lbs within 1 week. She has follow
up visit w/ cardiology next week and can reassess medication regimen at that time.
--- NOTE | 2024-06-06 15:37 | W.PN.HOSP.TC ---
Today's Communication/Plan
-
d/c home
f/u with cardiology in office
Assessment / Plan
Assessment / Plan
TTE
1. Moderate-severe left ventricular hypertrophy with preserved systolic
function stage III diastolic dysfunction with restrictive filling and LVOT
gradient of 167 mmHg with Valsalva, LVOT gradient normal at rest
2. Thickened mitral leaflets, systolic anterior motion, trace mitral
regurgitation and severely dilated left atrium
3. Aortic sclerosis/borderline stenosis. No aortic regurgitation seen
4. Right ventricular hypertrophy with preserved systolic function and moderate
pulmonary hypertension, 50 mmHg systolic
In November 2023 Doppler interrogation for LVOT obstruction was not performed
and the pulmonary artery systolic pressure was 23 mmHg. The right ventricle
was normal at that time.

Acute cerebral ischemic infarcts -transient left lower upper extremity and lower extremity weakness. Now completely resolved.
- MRI brain shows Punctate acute or subacute infarcts in the bilateral parietal lobes and in the posterolateral right frontal lobe adjacent to the known chronic transcortical infarct with encephalomalacia and gliosis.
- Sounds embolic. Patient states that she is compliant with her medication.
- Concern also was from raised about watershed area infarcts especially with prior history of intracranial stenosis and recommendation was to keep the blood pressure up and admission-patient started on IV vasopressors to keep the blood pressure high
in the setting of acute stroke-and has been 48 hours since admission and no neurological symptoms. Considered to wean the vasopressors if okay with neurology. Start on midodrine.
-CT angiogram this time shows atherosclerosis but no middle cerebral artery stenosis, thrombus, occlusion or aneurysm. No anterior cerebral artery occlusions. The P1 segment of the left posterior cerebral artery is hypoplastic probably
developmental variant. No significant stenosis in the posterior cerebral artery. There is mild to moderate plaque in the ICA arteries, but no significant stenosis in ICA. With the current available information with no stenotic lesions unclear if
this is a watershed infarct. Will discuss with radiology if her infarcts are in the watershed area.
- Patient to be maintained on aspirin/Plavix for 1 week followed by Plavix and Eliquis moving forward
- Patient interested in Watchman device placement and will follow-up in cardiology office for further discussion
LVOT obstruction
- Patient have problem with episodic dizziness may explain by LVOT obstruction, Valsalva gradient of 167 mmHg with resting gradient normal
Acute left nostril epistaxis-status post cautery and packing. Seems to stopped. Holding Eliquis. Patient needs a Plavix with coronary stent placement from March of this year. Patient on asa/ Plavix without any recurrence of epistaxis.
Eliquis to be resumed after 7 days
LWARENCE -improved and patient to be put back on home dose of discharge at discharge
DM II
- lantus 22 hs
- aspart 12 units tidac at home, continue with 8 units here
- sliding scale insulin
-Hold metformin 1000 bid due to CTA
-no hypoglycemia
- Await hemoglobin A1c.
CAD - No CP
- continue plavix, and statin
- continue metoprolol succinate 50 daily
AFIB - NSR
- Hold apixaban due to epistaxis/acute cerebral infarct
- metoprolol
Primary hypertension
-vasodilator/norvasc contraindicated with
Drop in H&H noted no external bleeding. Unclear if dilutional. Continue to follow.
ROSE
- oxygen prn
DVT PPX - on apixaban
Code Status - Full Code
More than 30 minutes spent in discharge including
Final examination of the patient
Summarizing hospital stay
Instructions for continuing care to all relevant caregivers
Preparation of discharge records, prescriptions, and referral forms
Total time spent (in minutes): 40 mins
.
Anticipated Discharge: Today
Subjective/Interval History
-
Date of Service: June 06, 2024
No further reported issues overnight
Blood pressure remains soft although patient does not have any dizziness
Objective Data
-
Labs:
Laboratory Results
06/06/24
05:17
WBC 6.0
Hgb 9.6 L
Hct 29.1 L
Plt Count 148
Vital Signs:
Vital Signs
Temp Pulse Resp BP Pulse Ox
98.3 F 99 16 96/63 97
06/06/24 11:08 06/06/24 13:46 06/05/24 17:30 06/06/24 14:23 06/06/24 09:42
I&O
06/05/24 06/06/24 06/07/24
06:59 06:59 06:59
Intake Total 3891.0 / 3951.0 824.6 / 824.6 480 / 480
Balance 3891.0 / 3951.0 824.6 / 824.6 480 / 480
Review of Systems
-
Respiratory: Reports No Symptoms
Cardiac: Reports No Symptoms
Abdomen/GI: Reports No Symptoms
Physical Exam
-
General: No Apparent Distress
Respiratory: Clear to Auscultation
Cardiac: Regular Rhythm and S1/S2; Negative Murmur
Neuro: Awake, Alert, Oriented and No Motor Deficits
Psych: Calm; Negative Confused
--- NOTE | 2024-06-06 16:18 | CM ---
Patient seen at bedside. patient completed IMM, signed form placed on chart. Patient for discharge home today. CM will continue to follow for discharge planning needs.
Plan; home with no needs.
--- NOTE | 2024-06-06 16:21 | PTCARENOTE ---
Pt cleared for discharge, paperwork completed and medications reviewed by patient and RN. Pt called for ride, friend will pick her up at 17:00. Pt showered and dressed self, packed up belongings. Midline removed by VAT RN. Peripheral IV removed by
RN.
== END 2024-06-06 16:50 | disposition home or self-care (01) | DRG 65 ==
LOC: ICU 07:59
PROVIDERS: Internal Medicine; Psychiatry & Neurology Neurology; Student in an Organized Health Care Education/Training Program; ADMITTING PHYSICIAN Internal Medicine; ATTENDING PHYSICIAN Hospitalist; CONSULT PHYSICIAN Internal Medicine Cardiovascular Disease; CONSULT PHYSICIAN Internal Medicine Critical Care Medicine; CONSULT PHYSICIAN Otolaryngology; EMERGENCY PHYSICIAN Emergency Medicine; FAMILY PHYSICIAN Internal Medicine
DX: I63.511 Cerebral infarction due to unspecified occlusion or stenosis of right middle cerebral artery (principal); I50.32 Chronic diastolic (congestive) heart failure; I11.0 Hypertensive heart disease with heart failure; I48.0 Paroxysmal atrial fibrillation; E78.00 Pure hypercholesterolemia, unspecified; E10.65 Type 1 diabetes mellitus with hyperglycemia; E66.9 Obesity, unspecified; I25.10 Atherosclerotic heart disease of native coronary artery without angina pectoris; G83.24 Monoplegia of upper limb affecting left nondominant side; R47.01 Aphasia; R04.0 Epistaxis; E87.6 Hypokalemia; I95.9 Hypotension, unspecified; G47.33 Obstructive sleep apnea (adult) (pediatric); E10.40 Type 1 diabetes mellitus with diabetic neuropathy, unspecified; Z68.38 Body mass index [BMI] 38.0-38.9, adult; Z95.5 Presence of coronary angioplasty implant and graft; Z79.899 Other long term (current) drug therapy; Z79.01 Long term (current) use of anticoagulants; Z79.02 Long term (current) use of antithrombotics/antiplatelets; Z79.4 Long term (current) use of insulin; Z79.82 Long term (current) use of aspirin; Z79.84 Long term (current) use of oral hypoglycemic drugs; Z79.85 Long-term (current) use of injectable non-insulin antidiabetic drugs; Z86.73 Personal history of transient ischemic attack (TIA), and cerebral infarction without residual deficits; Z87.891 Personal history of nicotine dependence; Z88.8 Allergy status to other drugs, medicaments and biological substances
CPT/HCPCS: 70450; 70496; 70498; 70551; 71045; 80048; 80053; 80061; 82533; 82962; 83036; 83735; 84100; 84443; 85025; 85027; 85384; 85610; 85670; 85730; 92610; 93005; 93306; 97162; 97166; 99285; Q9950; Q9967